=== PATIENT | female | born 1945 | race Two or more races ===

== ENCOUNTER 2020-10-31 07:56 | Outpatient (REF) | payer MEDICARE, SELFPAY ==
[2020-10-31 11:53] LABS: Alanine Aminotransferase 12 U/L (0-31); Anion Gap 13 (12-20); Aspartate Amino Transferase 16 U/L (5-31); Blood Urea Nitrogen 13 mg/dL (9-16); Calcium 9.2 mg/dL (8.4-10.2); Carbon Dioxide 27 mmol/L (22-29); Chloride 105 mmol/L (96-108); Cholesterol 177 mg/dL; Estimated Glomerular Filt Rate > 60; Glucose Fasting 107 mg/dL (60-99); HDL Cholesterol 64 mg/dL; LDL Cholesterol Calculated 95 mg/dl; Potassium 4.5 mmol/l (3.3-5.1); Sodium 140 mmol/L (135-145); Triglycerides 94 mg/dL
[2020-10-31 11:59] LABS: Vitamin D 25-OH Total 39.9 ng/mL (>30)
[2020-10-31 12:04] LABS: Estimated Average Glucose 137 mg/dL; Hemoglobin A1c % 6.4 %
== END 2020-10-31 07:57 | disposition home or self-care (01) ==
LOC: HO.HMGCLDS 07:56
PROVIDERS: PCP Internal Medicine; Visit Provider Internal Medicine
DX: I10 Essential (primary) hypertension (principal); E11.9 Type 2 diabetes mellitus without complications; E78.5 Hyperlipidemia, unspecified; F41.9 Anxiety disorder, unspecified; Z78.0 Asymptomatic menopausal state
CPT/HCPCS: 80048; 80061; 82306; 83036; 84450; 84460

== ENCOUNTER → 2020-11-01 13:37 | Outpatient (BNVA) | payer MEDICARE, OTHER, SELFPAY | PROVIDERS: PCP Internal Medicine; Visit Provider Orthopaedic Surgery | DX: M54.12 Radiculopathy, cervical region (principal) | CPT/HCPCS: 99212 ==

== ENCOUNTER 2020-11-03 09:05 | Outpatient (REF) | payer MEDICARE, OTHER, SELFPAY ==
--- NOTE | 2020-11-03 09:09 | XR_ITS ---
EXAMINATION:XR cervical spine 4V CLINICAL INFORMATION: Radiculopathic the cervical region COMPARISON: None TECHNIQUE: 5 views of the cervical spine were obtained. Frontal lateral both obliques and open-mouth odontoid view FINDINGS: 7 cervical vertebrae identified maintaining normal height and alignments.. Narrowing of intervertebral disc spaces at C5-C6, C6-C7 and C7-T1 suggests underlying moderate to severe degenerative disc disease. No prevertebral soft tissue swelling. Surrounding soft tissue and included lung apices are clear. No osseous stenosis of the foramen. Included lung apices are clear. XR/XR cervical spine 4V IMPRESSION: Degenerative disc disease. No osseous a stenosis of neural foramen.
== END 2020-11-03 09:06 | disposition home or self-care (01) ==
LOC: HO.HMGCX 09:05
PROVIDERS: PCP Internal Medicine; Visit Provider Internal Medicine
DX: M54.12 Radiculopathy, cervical region (principal)
CPT/HCPCS: 72050

== ENCOUNTER 2020-12-14 09:00 | Outpatient (RCR) | payer MEDICARE, OTHER, SELFPAY ==
--- NOTE | 2020-11-17 08:54 | MHC.PT.EP ---
[facility] [place] Office [place] Office [place] Office [address] [phone] F: [phone] F: [phone] F: [phone] F: [phone] Physical Therapy Plan of Care Date of Evaluation: 11/17/20 Date of Surgery: Diagnosis: cervical radiculopathy Assessment: Patient is a 74 year old R handed female who presents with s/s consistent with cervical radiculopathy. This started months ago intermittently but has been constant x3-4 weeks. She likes to keep busy by sewing and watching [employer]. Patient past medical history includes DM, HTN, anxiety. Current impairments include pain, posture, ROM, strength, activity tolerance and functional mobility. Functional limitations include decreased ability to sleep, lift, carry, push, pull, and perform weight bearing activities.. Patient is motivated with good rehab potential. Skilled PT will address impairments and functional limitations in order to achieve goals. Frequency and Duration: The patient will be seen 2x/week for 5 weeks Short Term Goals: I with HEP - 2 weeks Reduced TTP to 2/10 - 3 weeks Centralized s/s - 3 weeks General Administrator Goals: NPDI 30% or less - 5 weeks Treatment Plan: Modalities to reduce pain, spasms and effusion. Manual therapy to restore motion and function. Therapeutic exercise to improve strength and flexibility. Neuromuscular re-education for posture and balance. Therapeutic activities to return to functional activities of daily living. Electronically signed by: Lobito Machado, PT Please sign and return to therapist. Thank you for your referral.
--- NOTE | 2021-01-23 13:33 | MHC.PT.DC ---
[facility] [place] Office [place] Office [place] Office [address] Luis Driver [address] [phone] F: [phone] F: [phone] F: [phone] F: [phone] Physical Therapy Discharge Report Diagnosis: cervical radiculopathy Date of Surgery: Date of Evaluation: 11/17/20 Date of Discharge: 01/23/21 Treatments to Date: 8 Cancellations to Date: 0 No Shows to Date: 0 Discharge Status: Independent with HEP Discharge Summary: Pt progressed well over the course of skilled PT making progress on impairments and functional limitations resulting in an improved quality of life. Pt is I with HEP and appropriate to d/c to HEP at this time. Electronically signed by: Lobito Machado, PT Please sign and return to therapist. Thank you for your referral.
== END 2021-01-23 14:01 | disposition home or self-care (01) ==
LOC: HO.PTCHIC 09:00
PROVIDERS: Visit Provider Internal Medicine
DX: M54.12 Radiculopathy, cervical region (principal)
CPT/HCPCS: 97110; 97140; 97162

== ENCOUNTER 2021-03-08 08:12 | Outpatient (REF) | payer MEDICARE, OTHER, SELFPAY ==
[2021-03-08 12:14] LABS: Alanine Aminotransferase 15 U/L (0-31); Anion Gap 14 (12-20); Aspartate Amino Transferase 16 U/L (5-31); Blood Urea Nitrogen 20 mg/dL (9-16); Calcium 9.5 mg/dL (8.4-10.2); Carbon Dioxide 24 mmol/L (22-29); Chloride 105 mmol/L (96-108); Cholesterol 177 mg/dL; Estimated Glomerular Filt Rate > 60; Glucose Fasting 119 mg/dL (60-99); HDL Cholesterol 56 mg/dL; LDL Cholesterol Calculated 98 mg/dl; Potassium 4.3 mmol/L (3.3-5.1); Sodium 139 mmol/L (135-145); Triglycerides 116 mg/dL
[2021-03-08 12:33] LABS: Creatinine Urine 118.65 mg/dL; Microalbum/Creatinine Ratio Ur 8.4 ug/mg cr
[2021-03-08 12:36] LABS: Estimated Average Glucose 134 mg/dL; Hemoglobin A1c % 6.3 %
== END 2021-03-08 08:13 | disposition home or self-care (01) ==
LOC: HO.HMGCLDS 08:12
PROVIDERS: PCP Internal Medicine; Visit Provider Internal Medicine
DX: E11.9 Type 2 diabetes mellitus without complications (principal); E78.5 Hyperlipidemia, unspecified; I10 Essential (primary) hypertension
CPT/HCPCS: 36415; 80048; 80061; 82043; 83036; 84450; 84460

== ENCOUNTER 2021-06-21 12:20 | Outpatient (REF) | payer MEDICARE, OTHER, SELFPAY ==
--- NOTE | ~2021-06-21 | MM_ITS ---
EXAMINATION: MM SCREENING DIGITAL BREAST TOMOSYNTHESIS, BILATERAL CLINICAL INFORMATION: Screening. Asymptomatic. The lifetime risk of breast cancer based on the Tyrer-Cuzick Model is 3.3%. COMPARISON: Mammography: May 23, 2020 and studies dating back to October 18, 2014 TECHNIQUE: Digital breast tomosynthesis is performed in both the craniocaudal and mediolateral oblique views along with computer-aided detection (CAD). Synthesized 2D images are generated from the tomosynthesis. FINDINGS: There are scattered areas of fibroglandular density (ACR BI-RADS breast composition Category b). There are no significant masses, abnormal calcifications, or other abnormalities. MM/MM tomosynthesis screening BI IMPRESSION: There are no significant changes from prior study. ASSESSMENT: BI-RADS 1: Negative RECOMMENDATION: Routine annual mammography screening. This patient's information was entered into a reminder system with a target due date for their next mammogram.
--- NOTE | ~2021-06-21 | MM_ITS ---
EXAMINATION: BONE DENSITOMETRY CLINICAL INDICATION: Other specified disorders of bone density and structure, unspecified site. COMPARISON: Previous BD dated 12/04/2016 and baseline BD dated 03/26/2007. TECHNIQUE: Using a [employer]WARE DXA System (software version: 13.1) manufactured by [employer], dual-energy x-ray absorptiometry was performed of the lumbar spine and left hip. The images are of good technical quality. Summary results are attached. FINDINGS: AP SPINE L1-L4: Current: BMD 1.419 g/cm2, Z-score 3.4, T-score 2.0, normal, 5.3% increase from previous, 17.4% increase from baseline (<5% change is not significant). Prior: BMD 1.347 g/cm2. Baseline: BMD 1.209 g/cm2. LEFT FEMUR, NECK: Current: BMD 0.893 g/cm2, Z-score 0.6, T-score -1.0, normal. Prior: BMD 0.877 g/cm2. Baseline: BMD 0.905 g/cm2. LEFT FEMUR, TOTAL: Current: BMD 0.924 g/cm2, Z-score 0.8, T-score -0.7, normal, 1.3% decrease from previous, 5.9% decrease from baseline (<5% change is not significant). Prior: BMD 0.936 g/cm2. Baseline: BMD 0.982 g/cm2. IDENTIFIED RISK FACTORS: Height loss. Menopause. HISTORY OF FRACTURE: None listed. MEDICATIONS: Vitamin D. MM/XR DEXA axial skeleton IMPRESSION: 1. DIAGNOSIS: Normal bone density based on the lowest T-score value of -1.0 in the femoral neck applying World Health Organization criteria. 2. 10-YEAR FRACTURE RISK PREDICTION, FRAX: Major osteoporotic fracture (clinical spine, forearm, hip or shoulder) 9.3%. Hip fracture 1.3%. 3. Treatment Recommendations: NOF guidelines recommend consideration for treatment in postmenopausal women and men age 50 and older presenting with the following: -A hip or vertebral (clinical or morphometric) fracture. -T-score less than or equal to -2.5 at the femoral neck or spine after appropriate evaluation to exclude secondary causes. -Low bone mass at the hip or spine and a 10-year fracture probability by FRAX of greater than or equal to 3% for hip fracture or greater than or equal to 20% for major osteoporotic fracture based on the [place] adapted WHO algorithm. 4. Other Recommendations: All treatment decisions require clinical judgment and consideration of individual patient factors, including patient preferences, comorbidities, previous drug use, risk factors not captured in the FRAX model (e.g. frailty, falls, vitamin D deficiency, increased bone turnover, interval significant decline in bone density) and possible under or overestimation of fracture risk by FRAX. FUTURE SCAN RECOMMENDATION: People with diagnosed cases of osteoporosis or at high risk for fracture should have regular bone mineral density tests. For patients eligible for Medicare, routine testing is allowed once every 2 years. The testing frequency can be increased to one year for patients who have rapidly progressing disease, those who are receiving or discontinuing medical therapy to restore bone mass, or have additional risk factors.
== END 2021-06-21 12:21 | disposition home or self-care (01) ==
LOC: HO.MAMMO 12:20
PROVIDERS: Visit Provider Internal Medicine
DX: Z13.820 Encounter for screening for osteoporosis (principal); Z78.0 Asymptomatic menopausal state; Z12.31 Encounter for screening mammogram for malignant neoplasm of breast
CPT/HCPCS: 77063; 77067; 77080

== ENCOUNTER 2021-07-18 12:37 | Outpatient (REF) | payer MEDICARE, OTHER, SELFPAY ==
--- NOTE | ~2021-07-18 | XR_ITS ---
EXAMINATION: LEFT HIP AND LEFT KNEE. CLINICAL INFORMATION: Pain in left hip. COMPARISON: None TECHNIQUE: 2 views left hip and 4 views left knee. FINDINGS: Left hip: There is no visible acute fracture, dislocation or subluxation. There is mild loss of left hip joint space without spurring. The soft tissues are normal. Left knee: There is mild reduction in the medial and patellofemoral compartment joint space. No visible acute fracture or dislocation seen. There is a moderate anterior superior patellar enthesophyte. Mild prepatellar soft tissue swelling. No lytic or sclerotic process. There is no abnormal joint effusion seen. XR/XR knee LT 4V IMPRESSION: Mild degenerative changes left medial and patellofemoral compartment left knee. Moderate size anterior superior patellar enthesophyte. Mild prepatellar soft tissue swelling. Mild degenerative changes left hip joint. No visible acute fracture or dislocation.
--- NOTE | ~2021-07-18 | XR_ITS ---
EXAMINATION: LEFT HIP AND LEFT KNEE. CLINICAL INFORMATION: Pain in left hip. COMPARISON: None TECHNIQUE: 2 views left hip and 4 views left knee. FINDINGS: Left hip: There is no visible acute fracture, dislocation or subluxation. There is mild loss of left hip joint space without spurring. The soft tissues are normal. Left knee: There is mild reduction in the medial and patellofemoral compartment joint space. No visible acute fracture or dislocation seen. There is a moderate anterior superior patellar enthesophyte. Mild prepatellar soft tissue swelling. No lytic or sclerotic process. There is no abnormal joint effusion seen. XR/XR hip LT w PEL1V IMPRESSION: Mild degenerative changes left medial and patellofemoral compartment left knee. Moderate size anterior superior patellar enthesophyte. Mild prepatellar soft tissue swelling. Mild degenerative changes left hip joint. No visible acute fracture or dislocation.
== END 2021-07-18 12:38 | disposition home or self-care (01) ==
LOC: HO.HMGCX 12:37
PROVIDERS: PCP Internal Medicine; Visit Provider Internal Medicine
DX: Z13.89 Encounter for screening for other disorder (principal)
CPT/HCPCS: 73502; 73564

== ENCOUNTER → 2021-08-07 07:43 | Outpatient (BNVA) | payer MEDICARE, OTHER, SELFPAY | PROVIDERS: PCP Internal Medicine; Visit Provider Orthopaedic Surgery | DX: G95.9 Disease of spinal cord, unspecified (principal) | CPT/HCPCS: 99202 ==

== ENCOUNTER 2021-08-17 09:00 | Outpatient (REF) | payer MEDICARE, OTHER, SELFPAY ==
--- NOTE | ~2021-08-17 | MR_ITS ---
EXAMINATION: MR LUMBAR SPINE WITHOUT CONTRAST CLINICAL INFORMATION: 75-year-old with left-sided low back and hip pain with left leg numbness. COMPARISON: None TECHNIQUE: MRI of the lumbar spine was obtained using routine sequences without contrast. FINDINGS: Coronal Alignment: Mild to moderate upper lumbar levoscoliosis noted. Sagittal Alignment: There is trace Grade 1 degenerative spondylolisthesis at L4-5 of less than 2 mm. There is trace retrolisthesis at L3-L4 and L2-L3 and there is 3 mm of retrolisthesis at L1-L2. There is trace retrolisthesis at T12-L1. Lumbosacral Junction: Normal. Vertebral Bodies: Normal height. Disc Spaces and Endplates: Severe disc space height loss at L5-S1 with disc desiccation and Schmorl's nodes. Disc desiccation at L4-L5 and L3-L4. Mild to moderate disc space height loss at L2-L3 with disc desiccation and Schmorl's nodes and moderate to severe disc space height loss asymmetric to the right at L1-L2 with disc desiccation and Schmorl's nodes. Moderate disc space height loss and disc desiccation at T12-L1 and aykt-ax-xniotxjo disc space height loss and disc desiccation with Schmorl's nodes at T11-T12. There is multilevel moderately extensive anterolateral spondylosis throughout the thoracolumbar spine. Spinal Canal: No abnormal developmental findings. Bone Marrow: There are type I degenerative marrow signal changes along the endplates at L5-S1, L2-L3 and L1-L2. Otherwise, bone marrow signal intensity appears unremarkable. Conus Medullaris: Terminates at T12. Morphology and signal is normal. Intradural Nerve Roots: Within normal limits. L5-S1: There is posterolateral disc osteophyte complex with a superimposed central extruded disc herniation with slight caudal migration, with mild flattening of the central dural sac, also abutting the origin of the right S1 nerve root sleeve. There is mild bilateral facet arthropathy with ufbf-mv-grrbjxbr left-sided and mild right-sided neural foraminal stenosis without neural impingement. No significant central spinal canal or lateral recess stenosis. L4-L5: Central to left subarticular disc herniation noted superimposed on minimal disc bulging with moderate flattening of the dural sac asymmetric to the left, with marked narrowing of the left subarticular zone and mild narrowing of the right subarticular zone. There is left L5 nerve root impingement in the lateral recess. Ligamentum flavum thickening is noted with moderate to severe bilateral facet arthrosis, with mild central spinal canal stenosis. There is mild left-sided neural foraminal stenosis without exiting nerve root impingement. L3-L4: There is bilateral posterolateral subarticular to foraminal disc protrusions, left more than right, with moderate to severe bilateral facet arthropathy and ligamentum flavum thickening. There is mild flattening of the dural sac without significant spinal canal stenosis. There is okft-hd-yzcpifou left-sided neural foraminal stenosis, with disc herniation impinging on the exiting left L3 nerve root. L2-L3: Diffuse disc bulging is noted with a superimposed left paramedian disc protrusion with flattening of the dural sac asymmetric to the left. There is ligamentum flavum thickening and moderate bilateral facet arthrosis, right more than left with mild central spinal canal stenosis and mild to moderate narrowing of the subarticular zones, left more than right. There is jseq-cq-eetoqpql right-sided neural foraminal stenosis without neural impingement. L1-L2: Retrolisthesis and posterolateral disc osteophyte complex is noted with a superimposed right subarticular to foraminal extruded disc herniation with an extraforaminal component. There is ovzs-rf-nngboiii facet arthrosis, right more than left and there is moderate right-sided neural foraminal stenosis, with mild encroachment on the exiting right L1 nerve root. There is mild left-sided neural foraminal stenosis as well with mild narrowing of the right subarticular zone without significant central spinal canal stenosis. There is a mild broad-based central to right paramedian disc protrusion at T12-L1 without significant canal or neuroforaminal compromise with mild facet arthropathy. There is posterior disc osteophyte complex asymmetric to the right at T11-T12 with mild facet arthropathy. Paraspinal/Retroperitoneal: There is moderate generalized diffuse paraspinal muscle volume loss and bilateral psoas muscle volume loss. There is multilevel interspinous ligament degeneration with mild edematous change on both sides of the L3-L4 interspinous space. There is a 4 cm simple-appearing cortical cyst arising from the lower pole of the right kidney. Limited assessment. No specific follow up recommended for this based on the current ACR best practice guidelines. MR/MR lumbar spine wo con IMPRESSION: 1. Bvyj-jo-zjaagurp upper lumbar levoscoliosis with Grade 1 degenerative spondylolisthesis at L4-L5 and multilevel retrosubluxation's as detailed above. 2. Diffuse multilevel discogenic degenerative change and spondylosis throughout the thoracolumbar spine, with multilevel disc osteophyte complexes, disc bulging and disc herniations, associated with multilevel bilateral facet arthropathy and ligamentum flavum thickening with multilevel interspinous ligament degeneration. 3. Mild spinal canal stenosis at L4-L5 with left lateral recess stenosis and left L5 nerve root impingement. Mild spinal canal stenosis at L2-L3. 4. Multilevel predominately sziq-ei-hhdbbgvk degrees of neural foraminal stenosis as detailed above.
== END 2021-08-17 09:01 | disposition home or self-care (01) ==
LOC: HO.MRI 09:00
PROVIDERS: PCP Internal Medicine; Visit Provider Orthopaedic Surgery
DX: G95.9 Disease of spinal cord, unspecified (principal)
CPT/HCPCS: 72148

== ENCOUNTER → 2021-08-28 13:09 | Outpatient (BNVA) | payer MEDICARE, OTHER, SELFPAY | PROVIDERS: PCP Internal Medicine; Visit Provider Anesthesiology | DX: M47.816 Spondylosis without myelopathy or radiculopathy, lumbar region (principal); M43.16 Spondylolisthesis, lumbar region; M51.36 Other intervertebral disc degeneration, lumbar region | CPT/HCPCS: 99202 ==

== ENCOUNTER 2021-09-07 07:58 | Outpatient (REF) | payer MEDICARE, OTHER, SELFPAY ==
[2021-09-07 11:20] LABS: MANUAL DIFF FLAG NO
[2021-09-07 11:23] LABS: Basophils Percent Auto 0.9 % (0-2); Eosinophils Absolute Auto 0.2 X10*3/uL (0.0-0.4); Eosinophils Percent Auto 4.6 % (0-4); Hematocrit 42.2 % (37-47); Hemoglobin 13.1 g/dl (12.0-16.0); Imm Gran Abs Auto 0.01 X10*3/uL (0.00-0.03); Imm Gran Pct Auto 0.2 % (0.0-0.4); Lymphocytes Absolute Auto 1.6 X10*3/uL (1.2-4.9); Lymphocytes Percent Auto 35.5 % (20-40); Mean Corpuscular Hemoglobin 27.2 pg (27.0-33.0); Mean Corpuscular Volume 87.7 fL (80-98); Mean Platelet Volume 10.9 fL (9.4-12.3); Monocytes Absolute Auto 0.5 X10*3/uL (0.1-1.2); Neutrophils Absolute Auto 2.2 X10*3/uL (2.0-8.3); Neutrophils Percent Auto 47.8 % (45-73); Platelet Count 319 X10*3/uL (160-400); Red Blood Count 4.81 X10*6/uL (4.20-5.50); Red Cell Distribution Width 13.2 % (11.0-16.0); White Blood Count 4.5 X10*3/uL (4.8-10.8)
[2021-09-07 11:37] LABS: Estimated Average Glucose 137 mg/dL; Hemoglobin A1c % 6.4 %
[2021-09-07 11:47] LABS: Alanine Aminotransferase 13 U/L (0-31); Anion Gap 11 (12-20); Aspartate Amino Transferase 18 U/L (5-31); Blood Urea Nitrogen 16 mg/dL (9-16); Calcium 9.7 mg/dL (8.4-10.2); Carbon Dioxide 29 mmol/L (22-29); Chloride 104 mmol/L (96-108); Cholesterol 165 mg/dL; Estimated Glomerular Filt Rate > 60; Glucose Fasting 119 mg/dL (60-99); HDL Cholesterol 50 mg/dL; LDL Cholesterol Calculated 95 mg/dl; Potassium 4.5 mmol/L (3.3-5.1); Sodium 139 mmol/L (135-145); Triglycerides 101 mg/dL
[2021-09-07 12:17] LABS: Vitamin D 25-OH Total 86.5 ng/mL (>30)
[2021-09-07 12:18] LABS: Folate 5.5 ng/mL (> or = 4.0); Vitamin B12 610 pg/mL (200-900)
== END 2021-09-07 07:59 | disposition home or self-care (01) ==
LOC: HO.HMGCLDS 07:58
PROVIDERS: PCP Internal Medicine; Visit Provider Internal Medicine
DX: E11.9 Type 2 diabetes mellitus without complications (principal); E78.5 Hyperlipidemia, unspecified; I10 Essential (primary) hypertension; M85.852 Other specified disorders of bone density and structure, left thigh; Z78.0 Asymptomatic menopausal state
CPT/HCPCS: 36415; 80048; 80061; 82306; 82607; 82746; 83036; 84450; 84460; 85025

== ENCOUNTER 2021-10-24 06:01 | Outpatient (REF) | payer MEDICARE, OTHER, SELFPAY ==
--- NOTE | ~2021-10-24 | FL_ITS ---
EXAMINATION: XR FLUOROSCOPY WITH IMAGES CLINICAL INFORMATION: M51.36 - Other intervertebral disc degeneration, lumbar radiculopathy COMPARISON: MR lumbar spine 08/17/2021 TECHNIQUE: Fluoroscopy performed by Dr. Humberto Espinoza. Fluoroscopy time: 0.7 minutes DAP: 3.02 Gycm2 Images: 3 FINDINGS: There is a spinal needle overlying the outer left L3 neural foramen. There is contrast seen in the respective nerve sheath. In addition, transforaminal epidural extension is present at this level and also possibly at the L4 level. No visible vascular communication. FL/FL guidance in treatment room IMPRESSION: Fluoroscopy for pain management procedures.
== END 2021-10-24 06:02 | disposition home or self-care (01) ==
LOC: HO.RADIR 06:01
PROVIDERS: Visit Provider Anesthesiology
DX: M51.36 Other intervertebral disc degeneration, lumbar region (principal); M47.816 Spondylosis without myelopathy or radiculopathy, lumbar region; M43.16 Spondylolisthesis, lumbar region
CPT/HCPCS: 64483; 64484; J3300; Q9967

== ENCOUNTER → 2021-11-22 08:17 | Outpatient (BNVA) | payer MEDICARE, OTHER, SELFPAY | PROVIDERS: PCP Internal Medicine; Visit Provider Anesthesiology | DX: M47.816 Spondylosis without myelopathy or radiculopathy, lumbar region (principal); M43.16 Spondylolisthesis, lumbar region; M51.36 Other intervertebral disc degeneration, lumbar region | CPT/HCPCS: 99212 ==

== ENCOUNTER 2021-12-19 08:10 | Outpatient (REF) | payer MEDICARE, OTHER, SELFPAY ==
[2021-12-19 11:47] LABS: Estimated Average Glucose 143 mg/dL; Hemoglobin A1c % 6.6 %
[2021-12-19 12:13] LABS: Vitamin D 25-OH Total 43.9 ng/mL (>30)
[2021-12-19 12:16] LABS: Creatinine Urine 132.95 mg/dL; Microalbum/Creatinine Ratio Ur 10.5 ug/mg cr
[2021-12-19 12:20] LABS: Alanine Aminotransferase 13 U/L (0-31); Anion Gap 13 (12-20); Aspartate Amino Transferase 17 U/L (5-31); Blood Urea Nitrogen 15 mg/dL (9-16); Calcium 9.8 mg/dL (8.4-10.2); Carbon Dioxide 27 mmol/L (22-29); Chloride 105 mmol/L (96-108); Cholesterol 209 mg/dL; Estimated Glomerular Filt Rate > 60; Glucose Fasting 98 mg/dL (60-99); HDL Cholesterol 68 mg/dL; LDL Cholesterol Calculated 117 mg/dl; Potassium 4.6 mmol/L (3.3-5.1); Sodium 140 mmol/L (135-145); Triglycerides 120 mg/dL
== END 2021-12-19 08:11 | disposition home or self-care (01) ==
LOC: HO.HMGCLDS 08:10
PROVIDERS: Visit Provider Internal Medicine
DX: E11.9 Type 2 diabetes mellitus without complications (principal); E78.5 Hyperlipidemia, unspecified; I10 Essential (primary) hypertension; M85.852 Other specified disorders of bone density and structure, left thigh; Z78.0 Asymptomatic menopausal state
CPT/HCPCS: 36415; 80048; 80061; 82043; 82306; 83036; 84450; 84460

== ENCOUNTER 2022-03-09 07:41 | Outpatient (REF) | payer MEDICARE, OTHER, SELFPAY ==
--- NOTE | ~2022-03-09 | XR_ITS ---
EXAMINATION: XR shoulder RT min 2V CLINICAL INFORMATION: Reason for Exam M25.519 - Pain in unspecified shoulder COMPARISON: 10/21/2019 shoulder radiographs TECHNIQUE: Four views of the shoulder. XR/XR shoulder RT min 2V FINDINGS/IMPRESSION: No acute fracture or dislocation. Moderate degenerative changes of the glenohumeral and acromioclavicular joint with loss of joint space and degenerative spurring slightly progressed from prior, with loss of subacromial joint space which can be seen in the setting of rotator cuff pathology. Soft tissues are unremarkable. Visualized portion of lung appears clear.
== END 2022-03-09 07:42 | disposition home or self-care (01) ==
LOC: HO.HOSX 07:41
PROVIDERS: Visit Provider Orthopaedic Surgery
DX: M75.101 Unspecified rotator cuff tear or rupture of right shoulder, not specified as traumatic (principal); M12.811 Other specific arthropathies, not elsewhere classified, right shoulder
CPT/HCPCS: 73030; 99212

== ENCOUNTER 2022-03-22 08:30 | Outpatient (REF) | payer MEDICARE, OTHER, SELFPAY ==
--- NOTE | ~2022-03-22 | CT_ITS ---
EXAMINATION: CT SHOULDER WITHOUT CONTRAST, RIGHT CLINICAL INFORMATION: Unspecified rotator cuff tear or rupture of right shoulder. COMPARISON: Right shoulder radiographs dated 03/09/2022. TECHNIQUE: Contiguous axial CT images of the right shoulder were obtained without contrast. Sagittal and coronal reformats were provided and reviewed. This CT examination was performed using dose optimization techniques as appropriate, variously including the following: *Automated exposure control *Adjustment of mA and/or kV according to patient size (this includes techniques or standardized protocols for targeted exams where dose is matched to indication/reason for exam; i.e. extremities or head) *Use of iterative reconstruction technique DLP: 259 mGy-cm FINDINGS: No acute fracture. Chronic superior subluxation of the humeral head with bony remodeling of the acromial undersurface. Small unfused osteophyte versus loose body anterior to the acromion measuring up to 0.8 cm in ML dimension. Findings likely indicate underlying complete supraspinatus and infraspinatus tendon tears. There is severe supraspinatus and infraspinatus as well as more moderate teres minor muscle atrophy. Severe glenohumeral joint space narrowing with large marginal osteophytes. Small joint effusion. Ossified loose body within the subcoracoid recess measuring up to 0.5 cm. Severe acromioclavicular osteoarthritis. No concerning lytic or blastic osseous lesion. No abnormal soft tissue mass or fluid collection. No axillary lymphadenopathy. No large nodule, mass, or consolidation within the visualized right lung. CT/CT shoulder RT wo con IMPRESSION: 1. Chronic superior subluxation of the humeral head with bony remodeling of the acromial undersurface. Findings likely indicate chronic, complete supraspinatus and infraspinatus tendon tears. Severe supraspinatus and infraspinatus muscle atrophy as well as more moderate teres minor muscle atrophy. 2. Severe glenohumeral osteoarthritis. Small joint effusion with an ossified loose body within the subcoracoid recess measuring up to 0.5 cm. 3. Severe acromioclavicular osteoarthritis.
== END 2022-03-22 08:31 | disposition home or self-care (01) ==
LOC: HO.CT 08:30
PROVIDERS: Visit Provider Orthopaedic Surgery
DX: M12.811 Other specific arthropathies, not elsewhere classified, right shoulder (principal); M75.101 Unspecified rotator cuff tear or rupture of right shoulder, not specified as traumatic
CPT/HCPCS: 73200

== ENCOUNTER → 2022-04-04 12:42 | Outpatient (BNVA) | payer MEDICARE, OTHER, SELFPAY | PROVIDERS: PCP Internal Medicine; Visit Provider Orthopaedic Surgery | DX: Z13.89 Encounter for screening for other disorder (principal) ==

== ENCOUNTER 2022-04-27 06:58 | Outpatient (REF) | payer MEDICARE, OTHER, SELFPAY ==
[2022-04-27 11:20] LABS: MANUAL DIFF FLAG NO
[2022-04-27 11:25] LABS: Basophils Percent Auto 0.8 % (0-2); Eosinophils Absolute Auto 0.2 X10*3/uL (0.0-0.4); Eosinophils Percent Auto 3.2 % (0-4); Hematocrit 41.1 % (37.0-47.0); Hemoglobin 13.4 g/dl (12.0-16.0); Imm Gran Abs Auto 0.01 X10*3/uL (0.00-0.03); Imm Gran Pct Auto 0.2 % (0.0-0.4); Lymphocytes Absolute Auto 1.5 X10*3/uL (1.2-4.9); Lymphocytes Percent Auto 29.1 % (20-40); Mean Corpuscular HGB Conc 32.6 g/dl (31.0-35.0); Mean Corpuscular Hemoglobin 28.2 pg (27.0-33.0); Mean Corpuscular Volume 86.5 fL (80.0-98.0); Mean Platelet Volume 10.8 fL (9.4-12.3); Monocytes Absolute Auto 0.5 X10*3/uL (0.1-1.2); Neutrophils Absolute Auto 2.9 x10*3/uL (2.0-8.3); Neutrophils Percent Auto 57.7 % (45-73); Platelet Count 303 X10*3/uL (160-400); Red Blood Count 4.75 X10*6/uL (4.20-5.50); Red Cell Distribution Width 13.3 % (11.0-16.0)
[2022-04-27 11:33] LABS: Estimated Average Glucose 143 mg/dL; Hemoglobin A1c % 6.6 %
[2022-04-27 11:42] LABS: Anion Gap 12 (12-20); Blood Urea Nitrogen 20 mg/dL (9-16); Calcium 9.7 mg/dL (8.4-10.2); Carbon Dioxide 26 mmol/L (22-29); Chloride 104 mmol/L (96-108); Estimated Glomerular Filt Rate > 60; Glucose Random 143 mg/dL (60-115); Potassium 4.9 mmol/L (3.3-5.1); Sodium 137 mmol/L (135-145)
== END 2022-04-27 06:59 | disposition home or self-care (01) ==
LOC: HO.HMGCLDS 06:58
PROVIDERS: Visit Provider Orthopaedic Surgery
DX: Z01.812 Encounter for preprocedural laboratory examination (principal)
CPT/HCPCS: 36415; 80048; 83036; 85025

== ENCOUNTER → 2022-04-30 14:26 | Outpatient (REF) | payer MEDICARE, OTHER, SELFPAY ==
--- NOTE | 2022-04-30 14:34 | ECG_ITS ---
Test Reason : Z01.810 PREOP Blood Pressure : / mmHG Vent. Rate : 059 BPM Atrial Rate : 059 BPM P-R Int : 174 ms QRS Dur : 076 ms QT Int : 420 ms P-R-T Axes : 043 -12 030 degrees QTc Int : 415 ms Sinus bradycardia Minimal voltage criteria for LVH, may be normal variant ( R in aVL ) Borderline ECG When compared with ECG of 21-MAY-2014 13:13, No significant change was found Referred By: Ventura Flores Electronically Signed By:ROBEL GRAVES MD
== END ==
LOC: HO.CARD 14:26
PROVIDERS: PCP Internal Medicine; Visit Provider Orthopaedic Surgery
DX: Z01.810 Encounter for preprocedural cardiovascular examination (principal)
CPT/HCPCS: 93005

== ENCOUNTER → 2022-05-03 09:18 | Outpatient (BNVA) | payer MEDICARE, OTHER, SELFPAY | PROVIDERS: PCP Internal Medicine; Visit Provider Physician Assistant | DX: Z01.818 Encounter for other preprocedural examination (principal); M75.101 Unspecified rotator cuff tear or rupture of right shoulder, not specified as traumatic; M12.811 Other specific arthropathies, not elsewhere classified, right shoulder | CPT/HCPCS: 99212 ==

== ENCOUNTER 2022-05-08 07:24 | Inpatient (IN) | payer MEDICARE, OTHER, SELFPAY ==
[2022-05-01 11:50] VITALS: BP 156/74; PULSE 57; RESP 20; O2SAT 97; BMI 27.9
--- NOTE | 2022-05-01 12:02 | HO.ANESPROP2 ---
Documented by User: Christine Burdick NP 05/01/22 12:09 HPI - Anesthesia Eval Consult details Narrative: 76yo F for Right Shoulder Total Repair PCP cleared [facility] Active Problems Active Problems: All Active Problems (Updated 05/01/22 @ 12:01 by Antonia Carranza RN) Menopause (Acute) Past Medical History Medical History (Updated 05/08/22 @ 16:17 by Gera Gamez MD) COVID-19 vaccine series completed Dyslipidemia Essential hypertension Generalized anxiety disorder Influenza vaccination declined Osteopenia of left femoral neck Rotator cuff tear arthropathy of right shoulder Spondylolisthesis of lumbar region Type 2 diabetes mellitus without complication, without long-term current use of insulin Family History Family History Father CVD (cardiovascular disease) Myocardial infarction Mother History of CVA (cerebrovascular accident) Stroke Brother HTN (hypertension) Hyperlipidemia Diabetes mellitus Brother No problems noted. Son No problems noted. Daughter No problems noted. Family history of problems with anesthesia: No Surgical History Surgical History History of colonoscopy History of repair of right rotator cuff Hx of varicose vein ligation History of Problems with Anesthesia: No Social History Social History Housing: House Are you a primary animal caretaker supervisor to a significant other at home: No Do you presently have visiting nurse or other home services: No Patient Tobacco Use Status: Never used Tobacco e-Cigarette/Vaping Use: Never Used Second Hand Smoke Exposure: No Use of substances other than those prescribed or required for medical reasons: No Currently Displaying Signs/Symptoms of Drug Intoxication Withdrawal: No Have you been hit, kicked, punched, or otherwise hurt by someone within the past year? If so, by whom?: No Are you DNR?: No Advance Directives: No Advance Directives Information Provided: Yes (brochure given) Advance Directives on File: No Recently lost weight without trying: No Eating poorly because of decreased appetite: No Nutrition Risks: No Nutritional Risk : No Poor oral hygiene: No (upper full denture / some missing lower teeth) service: No Current occupational status: retired Current occupation: [employer] Cognitive needs: No Hearing needs: No Vision needs: Yes Narrative Narrative: No recent illness No CP/SOB with walking/housework Meds Allergies Allergy/AdvReac Type Severity Reaction Status Date / Time cephalexin Allergy Intermediate facial rash Verified 05/08/22 07:42 celecoxib [Celebrex] Allergy Unknown patient Verified 05/01/22 11:47 unsure what reaction was Home Medications Medication Instructions Recorded Confirmed Last Taken Type cholecalciferol (vitamin D3) 50 50 mcg PO DAILY 11/03/20 05/01/22 Unknown History mcg (2,000 unit) capsule aspirin 81 mg tablet,delayed 81 mg PO DAILY 03/09/21 05/01/22 04/30/22 History release (Adult Low Dose Aspirin) biotin 5,000 mcg sublingual tablet 5,000 mcg sublingual DAILY 05/01/22 05/01/22 Unknown History metformin 500 mg tablet,extended 500 mg PO QAM 05/01/22 05/01/22 Unknown History release 24 hr Exam Exam Date and Time: May 01, 2022 1202 Height,Weight and Vital Signs: Height 5 ft 5 in Weight 76.2 kg Last Vital Signs Pulse 57 05/01/22 11:50 Resp 20 05/01/22 11:50 BP 156/74 H 05/01/22 11:50 Pulse Ox 97 05/01/22 11:50 O2 Del Method 05/01/22 11:50 Pertinent Lab Results Pertinent Lab Results: Laboratory Tests 04/27/22 04/27/22 07:05 07:05 WBC 5.0 Hgb 13.4 Hct 41.1 Plt Count 303 Sodium 137 Potassium 4.9 Chloride 104 Carbon Dioxide 26 BUN 20 H Creatinine 0.78 A1C = 6.6% on 04/27/22 Narrative Narrative: EKG 04/2022 Vent. Rate : 059 BPM ? ? Atrial Rate : 059 BPM ?? P-R Int : 174 ms? QRS Dur : 076 ms ? ? QT Int : 420 ms ? ? ? P-R-T Axes : 043 -12 030 degrees ?? QTc Int : 415 ms ? Sinus bradycardia Minimal voltage criteria for LVH, may be normal variant ( R in aVL ) Borderline ECG When compared with ECG of 21-MAY-2014 13:13, No significant change was found Airway Denture: Upper Loose/Missing/Broken Teeth: Yes (Missing lower) Heart: RRR Lungs: CTAB Assessment and Plan Assessment Anesthesia Assessment: Anesthesia Plan Discussed and PAT Visit Final Anesthetic Review Family History of Problems with Anesthesia: No History of Problems with Anesthesia: No Documented by User: Jacky Gaitan MD 05/08/22 18:47 [facility] Past Medical History Medical History (Updated 05/08/22 @ 16:17 by Gera Gamez MD) COVID-19 vaccine series completed Dyslipidemia Essential hypertension Generalized anxiety disorder Influenza vaccination declined Osteopenia of left femoral neck Rotator cuff tear arthropathy of right shoulder Spondylolisthesis of lumbar region Type 2 diabetes mellitus without complication, without long-term current use of insulin Family History Family History Father CVD (cardiovascular disease) Myocardial infarction Mother History of CVA (cerebrovascular accident) Stroke Brother HTN (hypertension) Hyperlipidemia Diabetes mellitus Brother No problems noted. Son No problems noted. Daughter No problems noted. Surgical History Surgical History History of colonoscopy History of repair of right rotator cuff Hx of varicose vein ligation Social History Social History Housing: House Are you a primary animal caretaker supervisor to a significant other at home: No Do you presently have visiting nurse or other home services: No Patient Tobacco Use Status: Never used Tobacco e-Cigarette/Vaping Use: Never Used Second Hand Smoke Exposure: No Use of substances other than those prescribed or required for medical reasons: No Currently Displaying Signs/Symptoms of Drug Intoxication Withdrawal: No Have you been hit, kicked, punched, or otherwise hurt by someone within the past year? If so, by whom?: No Are you DNR?: No Advance Directives: No Advance Directives Information Provided: Yes (brochure given) Advance Directives on File: No Recently lost weight without trying: No Eating poorly because of decreased appetite: No Nutrition Risks: No Nutritional Risk : No Poor oral hygiene: No (upper full denture / some missing lower teeth) service: No Current occupational status: retired Current occupation: [employer] Cognitive needs: No Hearing needs: No Vision needs: Yes Meds Allergies Allergy/AdvReac Type Severity Reaction Status Date / Time cephalexin Allergy Intermediate facial rash Verified 05/08/22 07:42 celecoxib [Celebrex] Allergy Unknown patient Verified 05/01/22 11:47 unsure what reaction was Home Medications Medication Instructions Recorded Confirmed Last Taken Type cholecalciferol (vitamin D3) 50 50 mcg PO DAILY 11/03/20 05/01/22 Unknown History mcg (2,000 unit) capsule aspirin 81 mg tablet,delayed 81 mg PO DAILY 03/09/21 05/01/22 04/30/22 History release (Adult Low Dose Aspirin) biotin 5,000 mcg sublingual tablet 5,000 mcg sublingual DAILY 05/01/22 05/01/22 Unknown History metformin 500 mg tablet,extended 500 mg PO QAM 05/01/22 05/01/22 Unknown History release 24 hr Exam Airway Mallampati Class: III TM Dist: >3cm Neck ROM: Full Assessment and Plan Final Anesthetic Review NPO: Yes ASA Class: II Final Preanesthetic Review: Meds/Allgs Chart Reviewed, Consent Obtained/Reviewed and Anes Risks/Benef Reviewed Patient Risk: Intermediate Procedure Risk: Intermediate Anesthetic Plan Anesthetic Plan: GA and Regional Block Disposition: Standard PACU
[2022-05-01 16:18] LABS: MRSA Nasal PCR NEGATIVE (Negative); SA Nasal PCR NEGATIVE (Negative)
[2022-05-08] VITALS (15 sets, daily range): BP systolic 136–172; BP diastolic 57–88; PULSE 53–76; RESP 10–20; TEMP 36.1–37.1; O2SAT 66–100
--- NOTE | ~2022-05-08 | XR_ITS ---
EXAMINATION: XR SHOULDER, RIGHT CLINICAL INFORMATION: /p rt RTSA COMPARISON: None TECHNIQUE: 2 views of the right shoulder. FINDINGS: Status post right shoulder replacement. Surgical clips over the soft tissues. Air in the soft tissues from recent surgery. XR/XR shoulder RT min 2V IMPRESSION: Status post right shoulder replacement.
[2022-05-08 08:03] LABS: COVID-19 Test Negative (Negative)
[2022-05-08 08:06] LABS: Glucose, Whole Blood 100 mg/dL (60-115)
[2022-05-08] MEDS: Lactated Ringers 1,000 ML 100 ML IVCONT ×3 (08:11→22:31)
[2022-05-08] MEDS: vancomycin HCL 1,000 MG in 0.9 % Sodium Chloride 250 ML 270 MG IV ×2 (08:36→19:20)
--- NOTE | 2022-05-08 11:10 | PM.OP ---
Brief Operative Note Date of Service: 05/08/22 Pre-op diagnosis: Right RTC arthropathy Post-op diagnosis: same Procedure: rTSA right Implants: Tornier 25/39 lateralized glenosphere 2A flex stem with + 12 high offest tray and 39+6 poly Surgeon: Ventura Flores MD Anesthesia: GETA and regional Was an Petroleum Laboratory Technician used for this Procedure?: Yes Petroleum Laboratory Technician: Bridgette Glover Estimated blood loss (mL): 250 IV fluids (mL): 1,000 Pathology: other Condition: stable Disposition: PACU
--- NOTE | 2022-05-08 11:14 | W.PM.OPN ---
Operative Note Operative Note Date of Service: 05/08/22 Narrative: Date of Service: 05/08/22 Pre-op diagnosis: Right RTC arthropathy Post-op diagnosis: same Procedure: rTSA right Implants: Tornier 25/39 lateralized glenosphere 2A flex stem with + 12 high offest tray and 39+6 poly Surgeon: Ventura Flores MD Anesthesia: GETA and regional Was an Cooler Room Worker used for this Procedure?: Yes Cooler Room Worker: Bridgette Glover Estimated blood loss (mL): 250 IV fluids (mL): 1,000 Pathology: other Condition: stable Disposition: PACU Patient was brought to the operating room and placed in the beach chair position on the surgical table. The limb was prepped and draped in standard sterile fashion and a time out was called to identify proper site, proper procedure and IV antibiotics per weight were administered. I began by making a deltopectoral incision from the coracoid to the pectoralis insertion. Blunt dissection identified the cephalic vein which was retracted laterally. Blunt dissection was taken down to the 3 sisters which were cauterized. I then made a full-thickness capsulotomy involving the subscapularis. This was dimnutive and largely absent. There was no identifiable rtc tendons. This was then tagged and the arm was externally rotated and extended and the head was dislocated. The humeral head was high riding andeburnated. I made in approximately 132 degree angle while protecting the posterior and inferior soft tissues. A starter awl was used to identify the canal and then I broached up to a size 2 at 30 degrees of version. I then placed my head protector and turned my attention to the glenoid. Posterior anterior and superior glenoid retractors were placed and the biceps was tenotomized and labral tissue was removed. Based on the preoperative CT and templating a guide pin was placed in patient's natural retroversion and neutral inclination which required inferior reaming. Using a wedge Reamer I reamed down to bleeding bone mostly inferiorly and placed the 39 glenoid drill guide. My central screw was drilled to a depth of 35mm and a 25mm implant was placed. I then placed the proximal 2 nonlocking and 2 locking screws circumferentially around the central screw. I then placed a provisional glenosphere. I then returned to the humerus where I trialed an assortment of trays and polys. I then placed a lateralized glenosphere and trialed with a +12 adn + 6 poly and was satisfied with the stability and range. There was no impingement and excellent deltoid tension. Dislocation was difficult in all positions. I therefore placed my final glenosphere, stem and + 12 tray and re-trialed polys. I was most satisfied with the + 6 poly. This was placed and the shoulder was reduced. Once I was satisfied with the range of motion and stability I irrigated copiously. Subscapularis was not repairable. I closed in a layered fashion with absorbable suture and gordon and the patient was placed in a sterile dressing and an abduction sling. She was extubated brought to recovery room stable condition there were no known complications.
--- NOTE | 2022-05-08 11:21 | MHC.SHP ---
Pre-Procedural Eval Section A Date of Service: 05/08/22 The patient is an INPATIENT: No Changes since office visit: Yes Patient answered all questions; No Cold of Flu in the past 2 weeks, No New Medical Problems and No Changes in Medication The History & Physical has been completed within 30 days and I have reviewed it.: Yes Section B Chief Complaint: RTSA Allergies: Allergies Allergy/AdvReac Type Severity Reaction Status Date / Time cephalexin Allergy Intermediate facial rash Verified 05/08/22 07:42 celecoxib [Celebrex] Allergy Unknown patient Verified 05/01/22 11:47 unsure what reaction was Plan I have reviewed the history and physical and performed a pertinent physical examination on my patient. No changes have occurred unless specified.
--- NOTE | 2022-05-08 13:27 | PHA.MEDREC ---
Pharmacy Consult ? Medication Reconciliation Pharmacy has reviewed the medication reconciliation done by Antonia.
--- NOTE | 2022-05-08 15:59 | HO.PM.IMCN ---
History of Present Illness Data of Consult Service Date: 05/08/22 Primary Care Provider: Unknown Physician HPI Reason for consult: Routine medical mgmt This is a 76 yo F who is admitted under the orthopedic services s/p elective R TSA. Medical services consulted for medical mgmt. Pt seen and examined this afternoon. Family is bedside. She reports no complaints at this time. Review of Systems Review of Systems: negative except HPI PMFSH Medical History COVID-19 vaccine series completed Dyslipidemia Essential hypertension Generalized anxiety disorder Influenza vaccination declined Osteopenia of left femoral neck Rotator cuff tear arthropathy of right shoulder Spondylolisthesis of lumbar region Type 2 diabetes mellitus without complication, without long-term current use of insulin Family History Father CVD (cardiovascular disease) Myocardial infarction Mother History of CVA (cerebrovascular accident) Stroke Brother HTN (hypertension) Hyperlipidemia Diabetes mellitus Brother No problems noted. Son No problems noted. Daughter No problems noted. Surgical History History of colonoscopy History of repair of right rotator cuff Hx of varicose vein ligation Social History Housing: House Are you a primary critical care rn to a significant other at home: No Do you presently have visiting nurse or other home services: No Patient Tobacco Use Status: Never used Tobacco e-Cigarette/Vaping Use: Never Used Second Hand Smoke Exposure: No Use of substances other than those prescribed or required for medical reasons: No Have you been hit, kicked, punched, or otherwise hurt by someone within the past year? If so, by whom?: No Are you DNR?: No Advance Directives: No Advance Directives Information Provided: Yes (brochure given) Advance Directives on File: No Recently lost weight without trying: No Eating poorly because of decreased appetite: No Nutrition Risks: No Nutritional Risk : No Poor oral hygiene: No (upper full denture / some missing lower teeth) service: No Current occupational status: retired Current occupation: [employer] Cognitive needs: No Hearing needs: No Vision needs: Yes Meds Allergies Allergy/AdvReac Type Severity Reaction Status Date / Time cephalexin Allergy Intermediate facial rash Verified 05/08/22 07:42 celecoxib [Celebrex] Allergy Unknown patient Verified 05/01/22 11:47 unsure what reaction was Active Medications: Current Medications Acetaminophen (Acetaminophen 325 Mg Tablet) 650 mg PO Q6H PRN PRN Reason: Pain, Mild (Pain Scale 1-3) Aspirin (Aspirin 325 Mg Tablet) 325 mg PO BID [facility] Atorvastatin Calcium (Atorvastatin Calcium 10 Mg Tablet) 10 mg PO BEDTIME [facility] Docusate Sodium (Docusate Sodium 100 Mg Capsule) 100 mg PO BID [facility] Hydromorphone HCl (Hydromorphone Hcl 0.5 Mg/0.5 Ml Syringe) 0.25 mg IVPUSH Q4H PRN; Protocol PRN Reason: Pain, Severe (Pain Scale 7-10) Lactated Ringer's (Lr) 1,000 mls @ 100 mls/hr IVCONT .Q10H [facility] Last Admin: 05/08/22 15:03 Dose: 100 mls/hr Vancomycin HCl 1,000 mg/ (Sodium Chloride) 270 mls @ 270 mls/hr IV POSTOP ONE Stop: 05/08/22 21:59 Metformin HCl (Metformin Hcl Er 500 Mg Tab.Er.24h) 500 mg PO DAILY [facility] Metoprolol Succinate (Metoprolol Succinate Er 100 Mg Tab.Er.24h) 100 mg PO DAILY [facility]; Protocol Ondansetron HCl (Ondansetron Hcl 4 Mg/2 Ml Vial) 4 mg IVPUSH Q8H PRN PRN Reason: Nausea and Vomiting Oxycodone HCl (Oxycodone Hcl Immed Release 5 Mg Tablet) 10 mg PO Q4H PRN PRN Reason: Pain, Moderate (Pain Scale 4-6 Oxycodone HCl (Oxycodone Hcl Er 10 Mg Tab.Er.12h) 10 mg PO BID [facility] Pharmacy Consult (Consult Rx Vancomycin Dosing) 1 each MISCELLANE DAILY PRN PRN Reason: Consult order Sodium Chloride (0.9 % Sodium Chloride Flush 3 Ml Syringe) 3 ml IVFLUSH QSHIFT [facility] Last Admin: 05/08/22 15:50 Dose: Not Given Vitamin D (Cholecalciferol (Vitamin D3) 25 Mcg Tablet) 50 mcg PO DAILY [facility] Home Medications Medication Instructions Recorded Confirmed Last Taken Type cholecalciferol (vitamin D3) 50 50 mcg PO DAILY 11/03/20 05/01/22 Unknown History mcg (2,000 unit) capsule aspirin 81 mg tablet,delayed 81 mg PO DAILY 03/09/21 05/01/22 04/30/22 History release (Adult Low Dose Aspirin) biotin 5,000 mcg sublingual tablet 5,000 mcg sublingual DAILY 05/01/22 05/01/22 Unknown History metformin 500 mg tablet,extended 500 mg PO QAM 05/01/22 05/01/22 Unknown History release 24 hr Physical Exam Vital Signs and Narrative: Vital Signs: Last Vital Signs Temp 98.7 F 05/08/22 15:29 Pulse 76 05/08/22 15:29 Resp 18 05/08/22 15:29 BP 166/88 H 05/08/22 15:29 Pulse Ox 95 05/08/22 15:29 O2 Del Method 05/08/22 15:29 O2 Flow Rate 2 05/08/22 13:25 BMI result Body Mass Index 27.9 Const: Other: General - no acute distress, appears comfortable Cardiovascular - regular rate and rhythm, S1-S2 Lungs - normal respiratory effort, clear to auscultation bilaterally, no wheezing Abdomen - soft, nontender, no rebound or guarding Extremities - no edema bilaterally; RUE in sling Neuro - awake and alert, no focal deficits Results Labs Labs: Laboratory Results - last 24 hr 05/08/22 05/08/22 07:00 07:55 POC Glucose 100 COVID-19 (AMAURY) Negative COVID-19 Clin Com See Note Imaging Radiologist's Impressions: Impressions Shoulder X-Ray 05/08/22 14:05 IMPRESSION: Status post right shoulder replacement. Assessment and Plan (1) Type 2 diabetes mellitus without complication, without long-term current use of insulin: Plan This is a 76 yo F admitted after elected R TSA. Medical consult requested for medical management. 1. DM continue with metformin ADA diet; POC QIDAC 2. HTN metoprolol 3. HLD statin Medical stable. Will sign off. Please reconsult PRN.
[2022-05-08] MEDS: Docusate Sodium 100 MG CAPSULE PO (19:20)
[2022-05-08] MEDS: Atorvastatin Calcium 10 MG TABLET PO (19:20)
[2022-05-08] MEDS: oxyCODONE HCl ER 10 MG TAB.ER.12H PO (19:20)
[2022-05-08] MEDS: HYDROmorphone HCl 0.5 MG/0.5 ML SYRINGE 0.25 MG IVPUSH (22:31)
[2022-05-08] MEDS: ondansetron HCL 4 MG/2 ML VIAL IVPUSH (22:32)
[2022-05-09 04:00] VITALS: BP 150/63; PULSE 70; RESP 17; TEMP 36.7; O2SAT 94
[2022-05-09] MEDS: HYDROmorphone HCl 0.5 MG/0.5 ML SYRINGE 0.25 MG IVPUSH (05:09)
[2022-05-09 06:21] LABS: MANUAL DIFF FLAG NO
[2022-05-09 06:27] LABS: Basophils Percent Auto 0.1 % (0-2); Hematocrit 33.5 % (37.0-47.0); Hemoglobin 10.8 g/dl (12.0-16.0); Imm Gran Abs Auto 0.04 X10*3/uL (0.00-0.03); Imm Gran Pct Auto 0.5 % (0.0-0.4); Lymphocytes Absolute Auto 1.3 X10*3/uL (1.2-4.9); Lymphocytes Percent Auto 15.1 % (20-40); Mean Corpuscular HGB Conc 32.2 g/dl (31.0-35.0); Mean Corpuscular Hemoglobin 27.5 pg (27.0-33.0); Mean Corpuscular Volume 85.2 fL (80.0-98.0); Mean Platelet Volume 10.4 fL (9.4-12.3); Monocytes Absolute Auto 1.2 X10*3/uL (0.1-1.2); Monocytes Percent Auto 13.4 % (2-11); Neutrophils Absolute Auto 6.2 x10*3/uL (2.0-8.3); Neutrophils Percent Auto 70.9 % (45-73); Platelet Count 239 X10*3/uL (160-400); Red Blood Count 3.93 X10*6/uL (4.20-5.50); Red Cell Distribution Width 13.6 % (11.0-16.0); White Blood Count 8.7 X10*3/uL (4.8-10.8)
[2022-05-09 07:05] LABS: Anion Gap 10 (12-20); Blood Urea Nitrogen 11 mg/dL (9-16); Calcium 8.8 mg/dL (8.4-10.2); Carbon Dioxide 25 mmol/L (22-29); Chloride 105 mmol/L (96-108); Creatinine Clr Calc Pharmacy 76.3; Estimated Glomerular Filt Rate > 60; Glucose Fasting 132 mg/dL (60-99); Potassium 4.2 mmol/L (3.3-5.1); Sodium 136 mmol/L (135-145)
[2022-05-09 07:14] VITALS: BP 164/74; PULSE 67; RESP 16; TEMP 36.8; O2SAT 92
[2022-05-09] MEDS: Cholecalciferol (Vitamin D3) 25 MCG TABLET 50 MCG PO (07:24)
[2022-05-09] MEDS: oxyCODONE HCl Immed Release 5 MG TABLET 10 MG PO (07:24)
[2022-05-09] MEDS: Aspirin 325 MG TABLET PO (07:24)
[2022-05-09] MEDS: metFORMIN HCl ER 500 MG TAB.ER.24H PO (07:24)
[2022-05-09] MEDS: Docusate Sodium 100 MG CAPSULE PO (07:25)
[2022-05-09] MEDS: oxyCODONE HCl ER 10 MG TAB.ER.12H PO (07:25)
[2022-05-09] MEDS: Metoprolol Succinate ER 100 MG TAB.ER.24H PO (07:25)
[2022-05-09] MEDS: Acetaminophen 325 MG TABLET 650 MG PO (07:25)
--- NOTE | 2022-05-09 10:02 | PM.PNORT ---
Subjective Subjective Date of Service: 05/09/22 Interval history: POD1 s/p RT RTSA. Pain is well managed. No overnight events. Working with OT this morning. Physical Exam Vital Signs: Vital Signs: Last Vital Signs Temp 98.3 F 05/09/22 07:14 Pulse 67 05/09/22 07:14 Resp 16 05/09/22 07:14 BP 164/74 H 05/09/22 07:14 Pulse Ox 92 05/09/22 07:14 O2 Del Method 05/09/22 07:14 O2 Flow Rate 2 05/08/22 13:25 BMI result Body Mass Index 27.9 Const: General: cooperative, healthy appearing and no acute distress Resp: Effort & Inspection: normal respiratory effort and able to speak in complete sentences Cardio: Rate: regular rate Peripheral pulses: Peripheral pulses 2+ throughout GI: Palpation (GI): Soft to palpation Skin: Lesions: no lesions Rashes: no rashes Extrem: Other: right shoulder Aquacel dressing is clean dry and intact. Patient is able to flex, extend, abduct, adduct, finger cross, okay sign, thumbs-up without deficit. Sensation reportedly intact. Radial pulse intact. Procedures Date of Service Date of Service: 05/09/22 Progress Note: A&P Assessment and plan (1) Status post reverse total arthroplasty of right shoulder: Status: Acute Assessment and Plan: Continue pain mgmnt Begin ASA for dvt ppx begin PT/OT for right reverse total shoulder arthroplasty Dispo planning-Pending PT/OT eval, pain mgmnt. Time Spent With Patient Time: Total time spent is greater than 50% in coordination of care (as documented) at patient's floor/unit and/or counseling patient: Quality Stroke Does the patient have a stroke diagnosis?: No VTE Prior VTE?: No VTE Risk Level:: Medical - moderate - high VTE Device Contraindication: N/A - Device Ordered VTE Drug Contraindication: N/A - Med Ordered
[2022-05-09 11:26] VITALS: BP 124/59; PULSE 69; RESP 16; TEMP 36.4; O2SAT 92
--- NOTE | 2022-05-09 13:24 | P.DS_ITS ---
DS: Providers Provider Date of Service: 05/09/22 Date of admission: 05/08/22 07:24 Primary care physician: Unknown Physician Consults: 05/08/22 15:27 Consult to Hospitalist Routine Consulting Provider: Hospitalist Reason For Exam: routine medical management DS: Diagnosis Discharge Diagnosis (1) Status post reverse total arthroplasty of right shoulder: Status: Acute DS: Summary Hospital Course Hospital Course: The patient underwent a successful right reverse total shoulder arthroplasty, they were transferred to PACU and then to the floor to recover. During their stay, their vitals were stable, afebrile at 97.6. Labs were unremarkable, H/H 10.8/33.5. POD 1 they were started on Aspirin 325mg po bid for DVT ppx, they also received Physical Therapy services twice a day. Prior to discharge, their dressing was changed, incision clean dry and intact, new Aquacel dressing applied and the plan was to be discharged home with VNA services. Time Spent with Patient Time attestation: Total time spent providing and/or coordinating discharge services: Discharge coordination time: Less than 30 minutes Quality: Safe Use of Opioids Does Pt have an Active Cancer Diagnosis on the Problem List?: No Quality: Stroke Does the patient have a stroke diagnosis?: No Physical Exam Vital Signs: Vital Signs: Last Vital Signs Temp 97.6 F 05/09/22 11:26 Pulse 69 05/09/22 11:26 Resp 16 05/09/22 11:26 BP 124/59 L 05/09/22 11:26 Pulse Ox 92 05/09/22 11:26 O2 Del Method 05/09/22 11:26 O2 Flow Rate 2 05/08/22 13:25 BMI result Body Mass Index 27.9 Const: General: cooperative, healthy appearing and no acute distress Resp: Effort & Inspection: normal respiratory effort and able to speak in complete sentences Cardio: Rate: regular rate Peripheral pulses: Peripheral pulses 2+ throughout GI: Palpation (GI): Soft to palpation Skin: Lesions: no lesions Rashes: no rashes Extrem: Other: Right shoulder Aquacel dressing is clean dry and intact. Patient is able to flex, extend, abduct, adduct, finger cross, okay sign, thumbs-up without deficit. Sensation reportedly intact. Radial pulse intact. DS: Data Data Completed and Pending Pending studies at discharge: Pending at discharge 05/08/22 10:59 Surgical [PTH] Routine Labs on day of discharge: Laboratory Results - last 24 hr 05/09/22 05/09/22 05:45 05:45 WBC 8.7 RBC 3.93 L Hgb 10.8 L Hct 33.5 L MCV 85.2 MCH 27.5 MCHC 32.2 RDW 13.6 Plt Count 239 MPV 10.4 Immature Gran % (Auto) 0.5 H Neut % (Auto) 70.9 Lymph % (Auto) 15.1 L [place] % (Auto) 13.4 H Eos % (Auto) 0.0 Baso % (Auto) 0.1 Lymph # (Auto) 1.3 [place] # (Auto) 1.2 Eos # (Auto) 0.0 Baso # (Auto) 0.0 Abs Immat Gran (auto) 0.04 H Absolute Neuts (auto) 6.2 Absolute Nucleated RBC 0.000 Nucleated RBC % (auto) 0.0 Sodium 136 Potassium 4.2 Chloride 105 Carbon Dioxide 25 Anion Gap 10 L BUN 11 Creatinine 0.66 Estim Creat Clear Calc 76.3 Estimated GFR > 60 Fasting Glucose 132 H Calcium 8.8 D Discharge Plan Discharge Patient Disposition: Home Health Service Discharge Diagnosis: s/p rt rtsa Referrals: [facility] - [place] [Outside] - 1 Day (NOW [facility]. PT WILL HAVE HOME OCCUPATIONAL THERAPY) Physician,Unknown J [Physician] - 1 Week Discharge Medications: New acetaminophen 325 mg Tablet 650 mg PO Q6H PRN (Reason: Pain, Mild (Pain Scale 1-3)) 30 Days Qty: 240 0RF aspirin 325 mg Tablet 325 mg PO BID 42 Days Qty: 84 0RF docusate sodium 100 mg Capsule 100 mg PO BID 30 Days Qty: 60 0RF oxycodone 10 mg tablet 10 mg PO Q4H PRN (Reason: pain) 7 Days Qty: 42 0RF Rx Instructions: Partial Fill upon patient request. ondansetron 8 mg tablet,disintegrating 8 mg PO DAILY 5 Days Qty: 5 0RF Continued simvastatin 20 mg tablet 20 mg PO BEDTIME Qty: 30 6RF metoprolol succinate 100 mg tablet extended release 24 hr 100 mg PO DAILY Qty: 30 6RF biotin 5,000 mcg Tablet, Sublingual 5,000 mcg SUBLINGUAL DAILY metformin 500 mg tablet extended release 24 hr 500 mg PO QAM cholecalciferol (vitamin D3) 50 mcg (2,000 unit) capsule 50 mcg PO DAILY aspirin [Adult Low Dose Aspirin] 81 mg tablet,delayed release (DR/EC) 81 mg PO DAILY Discharge Orders: Discharge Order (Routine); Ordered 05/09/22 Ordered By: Bridgette Glover Activity on Discharge: As tolerated Stand Alone Forms: Patient Portal Discharge page Care Plan Goals: restore fxn to right shoulder Health Concerns: shldr Plan of Treatment: remain in the sling at all times may come out to do pendulums oxycodone 10mg by mouth every 4 hours continue aspirin for DVT ppx Followup with orthopedics in 7-10 days Assessment: stable for discharge Discharge Date/Time: 05/09/22 14:52
--- NOTE | 2022-05-09 13:48 | MHC.CM.PN ---
PER ORTHO PT DISCHARGING HOME TODAY W/NEW [facility], [facility]
--- NOTE | 2022-05-09 13:55 | P.F2F_ITS ---
Service Date Service Date: 05/09/22 Encounter Date of encounter: 05/09/22 Reasons for Services Signs and symptoms assessed: Pt. is considered homebound due to recent surgery. Unable to drive, poor balance, poor gait mechanics. Reason for physical therapy: home safety and mobility, therapeutic exercises, restore joint function, gait/transfer training, assess need for DME and ADL training Reason for occupational therapy: home safety and mobility, therapeutic exercises, restore joint function, gait/transfer training, assess need for DME and ADL training Homebound: Leaving the home is medically contraindicated at this time without the asist of a device and/or another person due th the listed conditions above and below. Reason homebound: unsteady gait / fall risk, pain with ambulation, pain with transfers and unable to drive Certification: Based on the above findings, I certify that this patient is confined to the home and needs intermittent detention care, physical therapy and/or speech therapy, or continues to need occupational therapy. The patient is under my care, and I have initiated the establishment of the plan of care. The patient will be followed by a physician who will periodically review the plan of care.
== END 2022-05-09 14:52 | disposition home health service (06) | DRG 483 ==
LOC: HO.SSSA 07:26 → HO.S3 15:00
PROVIDERS: Physician Assistant; Admitting Provider Orthopaedic Surgery; PCP Internal Medicine; Visit Provider Orthopaedic Surgery
PROC: 0RRJ0JZ Replacement of Right Shoulder Joint with Synthetic Substitute, Open Approach (ICD-10-PCS; CPT 23472; principal; 2022-05-08 09:50)
DX: M12.811 Other specific arthropathies, not elsewhere classified, right shoulder (principal); I10 Essential (primary) hypertension; E78.5 Hyperlipidemia, unspecified; E87.5 Hyperkalemia; E11.9 Type 2 diabetes mellitus without complications; Z20.822 Contact with and (suspected) exposure to COVID-19; Z88.1 Allergy status to other antibiotic agents; Z88.6 Allergy status to analgesic agent; Z79.82 Long term (current) use of aspirin; Z79.899 Other long term (current) drug therapy
CPT/HCPCS: 23472; 36415; 73030; 80048; 82947; 85025; 86850; 86900; 86901; 87635; 87640; 87641; 88304; 88311; 97165; C1713; C1776; J1100; J1170; J2250; J2370; J2405; J2795; J3010; J3370

== ENCOUNTER 2022-05-24 07:12 | Outpatient (RCR) | payer MEDICARE, OTHER, SELFPAY | END 2022-10-08 13:01 | disposition home or self-care (01) | LOC: HO.PT 07:12 | PROVIDERS: Visit Provider Physician Assistant | DX: Z96.611 Presence of right artificial shoulder joint (principal) ==

== ENCOUNTER 2022-06-22 07:48 | Outpatient (REF) | payer MEDICARE, OTHER, SELFPAY ==
--- NOTE | ~2022-06-22 | XR_ITS ---
EXAMINATION: XR SHOULDER, RIGHT CLINICAL INFORMATION: Right shoulder replacement COMPARISON: Previous x-ray 05/08/2022 TECHNIQUE: 2 views of the right shoulder. FINDINGS: There is a right shoulder replacement satisfactory position no fracture or dislocation is seen. There is arthritis at the acromioclavicular joint. Soft tissues are unremarkable. XR/XR shoulder RT min 2V IMPRESSION: Satisfactory appearance of right shoulder replacement.
== END 2022-06-22 07:49 | disposition home or self-care (01) ==
LOC: HO.HOSX 07:48
PROVIDERS: Visit Provider Physician Assistant
DX: M25.511 Pain in right shoulder (principal)
CPT/HCPCS: 73030

== ENCOUNTER → 2022-06-22 09:22 | Outpatient (BNVA) | payer MEDICARE, OTHER, SELFPAY | PROVIDERS: PCP Internal Medicine; Visit Provider Physician Assistant | DX: M25.511 Pain in right shoulder (principal); Z96.611 Presence of right artificial shoulder joint | CPT/HCPCS: 99212 ==

== ENCOUNTER → 2022-07-18 09:56 | Outpatient (BNVA) | payer MEDICARE, OTHER, SELFPAY | PROVIDERS: PCP Internal Medicine; Visit Provider Physician Assistant | DX: S50.01XA Contusion of right elbow, initial encounter (principal) | CPT/HCPCS: 99212 ==

== ENCOUNTER 2022-07-30 07:44 | Outpatient (REF) | payer MEDICARE, OTHER, SELFPAY ==
[2022-07-30 11:42] LABS: Basophils Absolute Auto 0.1 X10*3/uL (0.0-0.2); Basophils Percent Auto 0.8 % (0-2); Eosinophils Absolute Auto 0.2 X10*3/uL (0.0-0.4); Eosinophils Percent Auto 3.3 % (0-4); Hematocrit 40.2 % (37.0-47.0); Hemoglobin 12.5 g/dl (12.0-16.0); Imm Gran Abs Auto 0.02 X10*3/uL (0.00-0.03); Imm Gran Pct Auto 0.3 % (0.0-0.4); Lymphocytes Absolute Auto 1.6 X10*3/uL (1.2-4.9); Lymphocytes Percent Auto 26.6 % (20-40); MANUAL DIFF FLAG NO; Mean Corpuscular HGB Conc 31.1 g/dl (31.0-35.0); Mean Corpuscular Hemoglobin 26.7 pg (27.0-33.0); Mean Corpuscular Volume 85.9 fL (80.0-98.0); Mean Platelet Volume 10.8 fL (9.4-12.3); Monocytes Absolute Auto 0.8 X10*3/uL (0.1-1.2); Monocytes Percent Auto 13.1 % (2-11); Neutrophils Absolute Auto 3.4 x10*3/uL (2.0-8.3); Neutrophils Percent Auto 55.9 % (45-73); Platelet Count 329 X10*3/uL (160-400); Red Blood Count 4.68 X10*6/uL (4.20-5.50); Red Cell Distribution Width 15.3 % (11.0-16.0)
[2022-07-30 12:19] LABS: Creatinine Urine 120.97 mg/dL; Microalbum/Creatinine Ratio Ur 19.8 ug/mg cr
[2022-07-30 12:20] LABS: Alanine Aminotransferase 10 U/L (0-31); Anion Gap 14 (12-20); Aspartate Amino Transferase 15 U/L (5-31); Blood Urea Nitrogen 13 mg/dL (9-16); Calcium 9.8 mg/dL (8.4-10.2); Carbon Dioxide 27 mmol/L (22-29); Chloride 103 mmol/L (96-108); Cholesterol 163 mg/dL; Estimated Glomerular Filt Rate > 60; Glucose Fasting 111 mg/dL (60-99); HDL Cholesterol 50 mg/dL; LDL Cholesterol Calculated 98 mg/dl; Potassium 4.2 mmol/L (3.3-5.1); Sodium 140 mmol/L (135-145); Triglycerides 78 mg/dL
[2022-07-30 12:31] LABS: Estimated Average Glucose 123 mg/dL; Hemoglobin A1c % 5.9 %
[2022-07-30 12:43] LABS: Vitamin D 25-OH Total 91.7 ng/mL (>30)
== END 2022-07-30 07:45 | disposition home or self-care (01) ==
LOC: HO.HMGCLDS 07:44
PROVIDERS: PCP Internal Medicine; Visit Provider Internal Medicine
DX: E11.9 Type 2 diabetes mellitus without complications (principal); M85.852 Other specified disorders of bone density and structure, left thigh; I10 Essential (primary) hypertension; E78.5 Hyperlipidemia, unspecified; N95.9 Unspecified menopausal and perimenopausal disorder
CPT/HCPCS: 36415; 80048; 80061; 82043; 82306; 83036; 84450; 84460; 85025

== ENCOUNTER → 2022-08-06 08:54 | Outpatient (BNVA) | payer MEDICARE, OTHER, SELFPAY | PROVIDERS: PCP Internal Medicine; Visit Provider Orthopaedic Surgery | DX: Z47.1 Aftercare following joint replacement surgery (principal); M54.16 Radiculopathy, lumbar region; Z96.611 Presence of right artificial shoulder joint | CPT/HCPCS: 99212 ==

== ENCOUNTER 2022-08-06 08:58 | Outpatient (REF) | payer MEDICARE, OTHER, SELFPAY ==
--- NOTE | ~2022-08-06 | XR_ITS ---
EXAMINATION: XR SHOULDER, RIGHT CLINICAL INFORMATION: Right shoulder pain. COMPARISON: 08/22/2022. TECHNIQUE: 2 views of the right shoulder. FINDINGS: Prosthetic components of the reverse total shoulder arthroplasty appear appropriately situated. A small healing periprosthetic fracture is evident at the margin of the humerus, best seen on axial views. Osseous bridging is seen between the fragments. Alignment remains unchanged. No new periprosthetic fractures or lucency. Mild soft tissue swelling. Moderate acromioclavicular osteoarthritis. XR/XR shoulder RT min 2V IMPRESSION: Small healing periprosthetic fracture at the proximal humerus with unchanged alignment. Right reverse total shoulder arthroplasty is otherwise normal.
== END 2022-08-06 08:59 | disposition home or self-care (01) ==
LOC: HO.HOSX 08:58
PROVIDERS: Visit Provider Orthopaedic Surgery
DX: M25.511 Pain in right shoulder (principal)
CPT/HCPCS: 73030

== ENCOUNTER → 2022-08-16 09:38 | Outpatient (BNVA) | payer MEDICARE, OTHER, SELFPAY | PROVIDERS: PCP Internal Medicine; Visit Provider Anesthesiology | DX: M47.816 Spondylosis without myelopathy or radiculopathy, lumbar region (principal); M43.16 Spondylolisthesis, lumbar region; M51.36 Other intervertebral disc degeneration, lumbar region | CPT/HCPCS: 99212 ==

== ENCOUNTER 2022-09-11 05:54 | Outpatient (REF) | payer MEDICARE, OTHER, SELFPAY ==
--- NOTE | ~2022-09-11 | FL_ITS ---
EXAMINATION: XR FLUOROSCOPY WITH IMAGES CLINICAL INFORMATION: Lumbar spine injection. COMPARISON: MRI of the lumbar spine dated 08/17/2021. TECHNIQUE: Fluoroscopy performed by Dr. Espinoza. Fluoroscopy time: 0.8 minutes. Cumulative Dose: 17.1 mGy. DAP: 4.25 Gy-cm2. Images: 14. FL/FL guidance in treatment room FINDINGS/IMPRESSION: Contrast is seen in the right facet at L3-4. Multilevel degenerative changes as previously seen. Please refer to the procedure report for detailed findings.
== END 2022-09-11 05:55 | disposition home or self-care (01) ==
LOC: CF 05:54
PROVIDERS: Visit Provider Anesthesiology
DX: M47.26 Other spondylosis with radiculopathy, lumbar region (principal); M51.36 Other intervertebral disc degeneration, lumbar region
CPT/HCPCS: 64483; 64484; J3300

== ENCOUNTER → 2022-10-17 09:36 | Outpatient (BNVA) | payer MEDICARE, OTHER, SELFPAY | PROVIDERS: PCP Internal Medicine; Visit Provider Anesthesiology | DX: M47.816 Spondylosis without myelopathy or radiculopathy, lumbar region (principal); M43.16 Spondylolisthesis, lumbar region; M51.36 Other intervertebral disc degeneration, lumbar region | CPT/HCPCS: 99212 ==

== ENCOUNTER 2022-11-23 07:44 | Outpatient (REF) | payer MEDICARE, OTHER, SELFPAY ==
[2022-11-23 12:00] LABS: Estimated Average Glucose 134 mg/dL; Hemoglobin A1C 148.3747 umol/L; Hemoglobin A1c % 6.3 %
[2022-11-23 12:07] LABS: Alanine Aminotransferase 11 U/L (0-31); Anion Gap 15 (12-20); Aspartate Amino Transferase 16 U/L (5-31); Blood Urea Nitrogen 15 mg/dL (9-16); Calcium 9.6 mg/dL (8.4-10.2); Carbon Dioxide 26 mmol/L (22-29); Chloride 105 mmol/L (96-108); Cholesterol 182 mg/dL; Estimated Glomerular Filt Rate > 60; Glucose Fasting 95 mg/dL (60-99); HDL Cholesterol 60 mg/dL; LDL Cholesterol Calculated 100 mg/dl; Potassium 4.5 mmol/L (3.3-5.1); Sodium 141 mmol/L (135-145); Triglycerides 110 mg/dL
[2022-11-23 12:20] LABS: Creatinine Urine 85.52 mg/dL; Microalbum/Creatinine Ratio Ur 12.8 ug/mg cr
[2022-11-23 12:27] LABS: Vitamin D 25-OH Total 79.7 ng/mL (>30)
== END 2022-11-23 07:45 | disposition home or self-care (01) ==
LOC: HO.HMGCLDS 07:44
PROVIDERS: PCP Internal Medicine; Visit Provider Internal Medicine
DX: E78.5 Hyperlipidemia, unspecified (principal); I10 Essential (primary) hypertension; M85.852 Other specified disorders of bone density and structure, left thigh; N95.9 Unspecified menopausal and perimenopausal disorder; E11.9 Type 2 diabetes mellitus without complications
CPT/HCPCS: 36415; 80048; 80061; 82043; 82306; 83036; 84450; 84460

== ENCOUNTER 2023-01-21 09:21 | Outpatient (REF) | payer MEDICARE, OTHER, SELFPAY ==
--- NOTE | ~2023-01-21 | MM_ITS ---
EXAMINATION: MM SCREENING DIGITAL BREAST TOMOSYNTHESIS, BILATERAL CLINICAL INFORMATION: Screening. Asymptomatic. The lifetime risk of breast cancer based on the Tyrer-Cuzick Model is 3%. COMPARISON: Mammography: 06/21/2021, 05/23/2020, 12/27/2018 TECHNIQUE: Digital breast tomosynthesis is performed in both the craniocaudal and mediolateral oblique views along with computer-aided detection (CAD). Synthesized 2D images are generated from the tomosynthesis. Additional right MLO view is provided. FINDINGS: There are scattered areas of fibroglandular density (ACR BI-RADS breast composition Category b). There are no significant masses, abnormal calcifications, or other abnormalities. No architectural abnormality or developing density or significant change from prior studies. The axilla are unremarkable. MM/MM tomosynthesis screening BI IMPRESSION: No mammographic evidence of malignancy. ASSESSMENT: BI-RADS 1: Negative RECOMMENDATION: Routine annual mammography screening. This patient's information was entered into a reminder system with a target due date for their next mammogram.
== END 2023-01-21 09:22 | disposition home or self-care (01) ==
LOC: HO.MAMMO 09:21
PROVIDERS: Visit Provider Internal Medicine
DX: Z12.31 Encounter for screening mammogram for malignant neoplasm of breast (principal)
CPT/HCPCS: 77063; 77067

== ENCOUNTER 2023-02-25 07:21 | Outpatient (REF) | payer MEDICARE, OTHER, SELFPAY ==
[2023-02-25 12:14] LABS: Alanine Aminotransferase 14 U/L (0-31); Anion Gap 12 (12-20); Aspartate Amino Transferase 18 U/L (5-31); Blood Urea Nitrogen 15 mg/dL (9-16); Calcium 9.3 mg/dL (8.4-10.2); Carbon Dioxide 28 mmol/L (22-29); Chloride 107 mmol/L (96-108); Cholesterol 158 mg/dL; Estimated Glomerular Filt Rate > 60; Glucose Fasting 88 mg/dL (60-99); HDL Cholesterol 55 mg/dL; LDL Cholesterol Calculated 87 mg/dl; Potassium 4.5 mmol/L (3.3-5.1); Sodium 142 mmol/L (135-145); Triglycerides 80 mg/dL; Vitamin D 25-OH Total 90.8 ng/mL (>30)
[2023-02-25 12:19] LABS: Estimated Average Glucose 137 mg/dL; Hemoglobin A1c % 6.4 %
== END 2023-02-25 07:22 | disposition home or self-care (01) ==
LOC: HO.HMGCLDS 07:21
PROVIDERS: PCP Internal Medicine; Visit Provider Internal Medicine
DX: E11.9 Type 2 diabetes mellitus without complications (principal); E78.5 Hyperlipidemia, unspecified; I10 Essential (primary) hypertension; Z78.0 Asymptomatic menopausal state
CPT/HCPCS: 36415; 80048; 80061; 82306; 83036; 84450; 84460

== ENCOUNTER 2023-06-20 07:48 | Outpatient (REF) | payer MEDICARE, OTHER, SELFPAY ==
[2023-06-20 12:12] LABS: Estimated Average Glucose 126 mg/dL
[2023-06-20 12:36] LABS: Alanine Aminotransferase 13 U/L (0-31); Anion Gap 12 (12-20); Aspartate Amino Transferase 17 U/L (5-31); Blood Urea Nitrogen 15 mg/dL (9-16); Calcium 9.9 mg/dL (8.4-10.2); Carbon Dioxide 27 mmol/L (22-29); Chloride 107 mmol/L (96-108); Cholesterol 171 mg/dL; Estimated Glomerular Filt Rate > 60; Glucose Fasting 98 mg/dL (60-99); HDL Cholesterol 57 mg/dL; LDL Cholesterol Calculated 96 mg/dl; Potassium 4.5 mmol/L (3.3-5.1); Sodium 141 mmol/L (135-145); Triglycerides 91 mg/dL
[2023-06-20 12:49] LABS: Microalbum/Creatinine Ratio Ur 8.1 ug/mg cr
== END 2023-06-20 07:49 | disposition home or self-care (01) ==
LOC: HO.HMGCLDS 07:48
PROVIDERS: PCP Internal Medicine; Visit Provider Internal Medicine
DX: E78.5 Hyperlipidemia, unspecified (principal); I10 Essential (primary) hypertension; E11.9 Type 2 diabetes mellitus without complications
CPT/HCPCS: 36415; 80048; 80061; 82043; 83036; 84450; 84460

== ENCOUNTER 2023-06-24 10:11 | Outpatient (AMB) | payer MEDICARE, OTHER, SELFPAY ==
--- NOTE | 2023-06-24 10:48 | A.OFFPC_ITS ---
Vital Signs 06/24/23 10:49 Height 5 ft 6 in Weight 159 lb 4 oz BMI 25.7 BP 136/72 Blood Pressure Location Lt brachial Position Sitting Pulse 64 Pulse Source Pulse Oximeter Pulse Oximetry (%) 98 Intake Visit Reasons: 4m follow up dm,lipids Intake Note: pt is here for 4 month f/u on labs Flat Surfacer Required: No Accompanied by: Self / Same As Patient Allergies cephalexin Allergy (Intermediate, Verified 06/24/23 10:50) facial rash celecoxib [Celebrex] Allergy (Unknown, Verified 06/24/23 10:50) patient unsure what reaction was Medication List - Last Reconciled 06/24/23 by Francia Poole MD acetaminophen 650 mg (2 x 325 mg) PO Q6H PRN 30 days aspirin (Adult Low Dose Aspirin) 81 mg PO DAILY biotin 5,000 mcg sublingual DAILY cholecalciferol (vitamin D3) 50 mcg PO DAILY metformin ER 500 mg PO QAM metoprolol succinate ER 100 mg PO DAILY omega-3 acid ethyl esters 1 cap PO DAILY simvastatin 20 mg PO BEDTIME Tobacco use date assessed: 06/24/23 Fall risk assessment: No Falls in past year Last assessed Fall Risk: 06/24/23 Dental Screening Dental Screen Date: 06/24/23 Did you have a dental visit in the last 12 months?: Yes Did you have a dental problem in the last 6 months where you did not have access to dental care?: No Was dental information given to patient?: Patient has dentist HPI 4m follow up dm,lipids HPI Details 77-year-old lady here today for follow-up on her diabetes mellitus , hypertension, and lipids. PE he has been compliant with taking her medications, exercises regularly. She also started taking Cresco 3 fatty acid supplements which he states has been helping her joints and her low back pain. She had recent fasting labs done which showed normal results with hemoglobin A1c now at 6% and fasting lipids within normal limits. Patient states that she has a nodular mass on left forearm which she would like removed. This was removed by Dr. Reynolds in 2010. [facility] Medical History (Updated 06/24/23 @ 11:09 by Francia Poole MD) COVID-19 vaccine series completed Dyslipidemia Essential hypertension Generalized anxiety disorder Mass of left forearm Menopause Osteopenia of left femoral neck Pneumococcal vaccination declined Refused influenza vaccine Rotator cuff tear arthropathy of right shoulder Spondylolisthesis of lumbar region Type 2 diabetes mellitus without complication, without long-term current use of insulin Surgical History History of colonoscopy History of repair of right rotator cuff Hx of varicose vein ligation Family History Father CVD (cardiovascular disease) Myocardial infarction Mother History of CVA (cerebrovascular accident) Stroke Brother HTN (hypertension) Hyperlipidemia Diabetes mellitus Brother No problems noted. Son No problems noted. Daughter No problems noted. Social History Housing: House Are you a primary critical care nurse practitioner to a significant other at home: No Do you presently have visiting nurse or other home services: No Patient Tobacco Use Status: Never used Tobacco e-Cigarette/Vaping Use: Never Used Second Hand Smoke Exposure: No service: No Current occupational status: retired Current occupation: [employer] Cognitive needs: No Hearing needs: No Vision needs: Yes Questionnaire PHQ-9 Over the last 2 weeks, how often have you been bothered by any of the following problems? Depression Screening Interpretation: Negative Source: Developed by Drs. Blas Mahajan, Pat Pleitez, Wayne Fishre and colleagues, with an educational pepe from [employer]. Thrive Questionnaire Date Thrive assessed: 11/26/22 AUDIT C Alcohol Use Questionnaire (AUDIT-C) 1. How often do you have a drink containing alcohol?: Never Total Score: 0 ADELITA-7 AMB Questionnaire ADELITA-7 Date ADELITA - 7 assessed: 11/26/22 Source: Developed by Drs. Blas Mahajan, Wayne Snider and colleagues, with an educational pepe from [employer]. Review of Systems Const Denies excessive sweating and Denies fatigue Eyes Details: has appt with [facility] Denies change in vision ENT Reports Normal hearing present and Reports nasal trauma Card Denies chest pain at rest, Denies chest pain with activity, Denies rapid heart rate, Denies pedal edema and Denies dyspnea Resp Denies chest congestion, Denies cough and Denies dyspnea GI Denies abdominal pain, Denies belching, Denies melena and Denies bloating Denies hematuria, Denies urinary frequency, Denies difficulty voiding, Denies hot flashes, Denies dysuria, Denies prolapse symptoms, Denies urinary incontinence and Denies vaginal discharge Musc Reports no additional complaints Skin/Breast Reports as per HPI Neuro Reports Normal hearing present, Denies seizure-like activity and Denies Sensory deficit (Neuro) Psych Reports no additional complaints Endo Denies excessive sweating and Denies fatigue Clinton/Lymph Reports no additional complaints Aller/Immun Reports no additional complaints Physical exam (Primary Care) Vital Signs: Last Vital Signs Pulse 64 06/24/23 10:49 BP 136/72 06/24/23 10:49 Pulse Ox 98 06/24/23 10:49 BMI result Body Mass Index 25.7 Tobacco/Smoking Status: Tobacco use Status Tobacco use date assessed 06/24/23 06/24/23 10:53 Patient Tobacco Use Status Never used Tobacco 06/24/23 10:49 e-Cigarette/Vaping Use Never Used 06/24/23 10:49 Depression Screening Interpretation: Negative Thrive Assessment: Date of Thrive Assessment Date Thrive assessed 11/26/22 06/24/23 10:49 Const General: healthy appearing, comfortable, no acute distress and alert Orientation/consciousness: patient oriented x3 HENMT Other: Normocephalic atraumatic, normal external auditory canal and tympanic membrane. , General nose exam: Normal external nose present and No nasal discharge present Eyes General: appearance normal, both eyes and all related structures Neck Neck: Yes full ROM, Yes no lymphadenopathy and Yes supple Resp Auscultation: clear to auscultation bilaterally Cardio Other: S1-S2 present regular rate and rhythm GI Other: Normal bowel sounds, soft, nontender, no mass palpated Back/Spine/Pelvis Back: No back tenderness Skin Other: 2 Nodular mass on left forearm, nontender to palpation Neuro General: patient oriented x3, gait normal, tone normal, no focal motor deficits, CN's II-XI intact bilaterally and normal sensation to monofilament Cranial nerves: Yes Normal hearing present Sensory Exam: No Sensory deficit (Neuro) Extrem General: Yes normal to inspection, Yes full ROM, Yes no joint enlargement, Yes no pedal edema, Yes no calf tenderness and Yes normal gait Results Reviewed Results Reviewed: ENTERED: 06/20/23-4632 JERE CHICAS: ORDERED: Met Prof Fast, AST, ALT, Lipid Panel Test Result Flag Reference Site Sodium 141 135-145 mmol/L Potassium 4.5 3.3-5.1 mmol/L CL 107 96-108 mmol/L CO2 27 22-29 mmol/L Gap 12 12-20 BUN 15 9-16 mg/dL Creat 0.78 0.5-1.4 mg/dL EGFR > 60 NOTE: For -Honduran individuals, multiply the result by 1.210. Chronic Kidney Disease: Estimated GFR < 60 mL/min/1.73m2 Severe Kidney Disease: Estimated GFR < 15 mL/min/1.73m2 FBS 98 60-99 mg/dL CA 9.9 # 8.4-10.2 mg/dL AST (GOT) 17 5-31 U/L ALT (GPT) 13 0-31 U/L Triglyceride 91 mg/dL Desirable Triglyceride: less than 150 mg/dL Borderline High Triglyceride 150-199 mg/dL High Triglyceride: 200-499 mg/dL Very High Triglyceride: greater than or equal to 5OO mg/dL Chol 171 mg/dL Desirable Cholesterol: less than 200 mg/dL Borderline High Cholesterol: 200-239 mg/dL High Cholesterol: greater than 239 mg/dL LDL Calculated 96 mg/dl Desirable LDL: less than 100 mg/dL Near Optimal/Above Optimal LDL: 110-129 mg/dL Borderline High LDL: 130-159 mg/dL High LDL: 160-189 mg/dL Very High LDL: greater than or equal to 190 mg/dL HDL 57 mg/dL Desirable HDL: greater than 40 mg/dL Note: This HDL assay may give artificially low results in patients with liver disease. Laboratory Tests 06/20/23 06/20/23 07:54 08:00 Estimat Average Glucose 126 Hemoglobin A1c % 6.0 Urine Creatinine 73.60 Urine Microalbumin 6.0 Microalb/Creat Ratio 8.1 Assessment and Plan Assessment & Plan (1) Type 2 diabetes mellitus without complication, without long-term current use of insulin: Comment: taking metformin once/day-does not check glucose at home Code(s): E11.9 - Type 2 diabetes mellitus without complications Plan: Diabetes mellitus controlled, will continue on metformin ER 500 mg daily in a.m. , up-to-date with her diabetes retinopathy screening, Recent lab results reviewed with patient, with sugar and hemoglobin A1c stable and at goal . Patient advised to inspect feet daily, for any signs of injury, callus or infection.. Blood pressure goal is less than 130/80, goal LDL is less than 100 and goal hemoglobin A1c is less than 7% follow-up appointment made in--3-months, after fasting labs done. (2) Essential hypertension: Code(s): I10 - Essential (primary) hypertension (3) Dyslipidemia: Code(s): E78.5 - Hyperlipidemia, unspecified Plan: Reviewed recent fasting lipid profile with patient with levels within normal limits . Continue with simvastatin 20 mg at bedtime , in addition to adherence to low-cholesterol diet and regular exercise, at least 30 minutes 3 to 4 times a week. Advised patient to make healthy food choices, eat more fruits, vegetables, whole grains, wild caught fish and low-fat dairy. Limit amount of meat and fried or fatty food products, as well as processed foods and fast foods. Follow-up scheduled with repeat fasting lipid panel in 3 months. (4) Mass of left forearm: Code(s): R22.32 - Localized swelling, mass and lump, left upper limb Plan: Surgical consult obtained Orders: Orders Alanine Aminotransferase 10/11/23 E11.9 - Type 2 diabetes mellitus without complications, E78.5 - Hyperlipidemia, unspecified, I10 - Essential (primary) hypertension Aspartate Amino Transferase 10/11/23 E11.9 - Type 2 diabetes mellitus without complications, E78.5 - Hyperlipidemia, unspecified, I10 - Essential (primary) hypertension Basic Metabolic Panel Fasting 10/11/23 E11.9 - Type 2 diabetes mellitus without complications, E78.5 - Hyperlipidemia, unspecified, I10 - Essential (primary) hypertension Hemoglobin A1c 10/11/23 E11.9 - Type 2 diabetes mellitus without complications, E78.5 - Hyperlipidemia, unspecified, I10 - Essential (primary) hypertension Lipid Panel 10/11/23 E11.9 - Type 2 diabetes mellitus without complications, E78.5 - Hyperlipidemia, unspecified, I10 - Essential (primary) hypertension Referrals General Surgery Referral R22.32 - Localized swelling, mass and lump, left upper limb Coding Level of Care Code Est Pt Level 4 (05218) Diagnoses Type 2 diabetes mellitus without complication, without long-term current use of insulin E11.9 Essential hypertension I10 Dyslipidemia E78.5 Mass of left forearm R22.32
[2023-06-24 10:49] VITALS: BP 136/72; PULSE 64; O2SAT 98; BMI 25.7
== END 2023-06-24 14:29 | disposition home or self-care (01) ==
PROVIDERS: Visit Provider Internal Medicine
DX: E11.9 Type 2 diabetes mellitus without complications (principal); I10 Essential (primary) hypertension; E78.5 Hyperlipidemia, unspecified; R22.32 Localized swelling, mass and lump, left upper limb
CPT/HCPCS: 99214

== ENCOUNTER 2023-07-09 08:50 | Outpatient (AMB) | payer MEDICARE, OTHER, SELFPAY ==
[2023-07-09 09:11] VITALS: BP 142/67; PULSE 68; BMI 25.0
--- NOTE | 2023-07-09 09:11 | MHC.OFFVIS ---
Intake Vital Signs 07/09/23 09:11 Height 5 ft 6 in Weight 155 lb BMI 25.0 BP 142/67 H Blood Pressure Location Rt brachial Position Sitting Pulse 68 Intake Visit Reasons: Localized swelling, mass and lump, left upper limb Intake Note: Patient referred by Dr. Poloe for growths on Lt forearm. Reports growths were removed 14 yrs ago. Pt noticed growths have been slowly growing for the past 3yrs. C/o itch and pain with pressure. No hx of skin ca. Scientific Helper Required: No Accompanied by: Self / Same As Patient Allergies cephalexin Allergy (Intermediate, Verified 07/09/23 09:13) facial rash celecoxib [Celebrex] Allergy (Unknown, Verified 07/09/23 09:13) patient unsure what reaction was Medication List - Last Reconciled 07/09/23 by Clay Roberts MD acetaminophen 650 mg (2 x 325 mg) PO Q6H PRN 30 days aspirin (Adult Low Dose Aspirin) 81 mg PO DAILY biotin 5,000 mcg sublingual DAILY cholecalciferol (vitamin D3) 50 mcg PO DAILY metformin ER 500 mg PO QAM metoprolol succinate ER 100 mg PO DAILY omega-3 acid ethyl esters 1 cap PO DAILY simvastatin 20 mg PO BEDTIME HPI HPI Comments History of Present Illness Details Patient presents for evaluation of a left proximal forearm near the elbow soft tissue mass which is become more symptomatic over the last several years. Patient had a cyst/mass excised from this area 12 years ago and it has apparently recurred. No other such lesions elsewhere. Chart was reviewed patient evaluated. [facility] Medical History COVID-19 vaccine series completed Dyslipidemia Essential hypertension Generalized anxiety disorder Mass of left forearm Menopause Osteopenia of left femoral neck Pneumococcal vaccination declined Refused influenza vaccine Rotator cuff tear arthropathy of right shoulder Spondylolisthesis of lumbar region Type 2 diabetes mellitus without complication, without long-term current use of insulin Surgical History History of colonoscopy History of repair of right rotator cuff Hx of varicose vein ligation Family History Father CVD (cardiovascular disease) Myocardial infarction Mother History of CVA (cerebrovascular accident) Stroke Brother HTN (hypertension) Hyperlipidemia Diabetes mellitus Brother No problems noted. Son No problems noted. Daughter No problems noted. Social History Housing: House Are you a primary resident care supervisor to a significant other at home: No Do you presently have visiting nurse or other home services: No Patient Tobacco Use Status: Never used Tobacco e-Cigarette/Vaping Use: Never Used Second Hand Smoke Exposure: No service: No Current occupational status: retired Current occupation: [employer] Cognitive needs: No Hearing needs: No Vision needs: Yes Physical Exam Vital Signs: Last Vital Signs Pulse 68 07/09/23 09:11 BP 142/67 H 07/09/23 09:11 BMI result Body Mass Index 25.0 Chest Other: Chest sounds bilaterally, HS 1 in 2 GI Other: Abdomen soft, benign Extrem Other: Most noteworthy for approximately 4 x 3 cm proximal left forearm soft tissue mass with an overlying scar from the previous excision attempt. Extremities otherwise grossly neurovascularly intact Assessment & Plan Assessment & Plan (1) Mass of left forearm: Code(s): R22.32 - Localized swelling, mass and lump, left upper limb Plan Risks, benefits, alternatives of excision of left forearm soft tissue mass reviewed the patient included but not limited to bleeding, infection, recurrence, numbness, pain, scarring the patient was to proceed. All questions were answered. Arrangements will be made for this. Coding Level of Care Code New Pt Level 4 (47595) Diagnoses Mass of left forearm R22.32
== END 2023-07-09 09:19 | disposition home or self-care (01) ==
PROVIDERS: PCP Internal Medicine; Visit Provider Surgery
DX: R22.32 Localized swelling, mass and lump, left upper limb (principal)
CPT/HCPCS: 99204

== ENCOUNTER → 2023-07-09 08:50 | Outpatient (BNVA) | payer MEDICARE, OTHER, SELFPAY | PROVIDERS: PCP Internal Medicine; Visit Provider Surgery | DX: R22.32 Localized swelling, mass and lump, left upper limb (principal) | CPT/HCPCS: 99202 ==

== ENCOUNTER 2023-08-01 05:54 | Day surgery (SDC) | payer MEDICARE, OTHER, SELFPAY ==
[2023-07-29 15:05] VITALS: BMI 25.0
--- NOTE | 2023-07-31 08:44 | HO.ANESPROP2 ---
Documented by User: Christine Burdick NP 07/31/23 08:45 HPI - Anesthesia Eval Consult details Narrative: 77yo F for Left Wide Local Excision Forearm Mass PMFSH Active Problems Active Problems: All Active Problems (Updated 11/26/22 @ 11:29 by Francia Poole MD) Mass of left forearm (Acute) Refused influenza vaccine (Acute) Pneumococcal vaccination declined (Acute) Lumbar radiculopathy (Acute) Type 2 diabetes mellitus without complication, without long-term current use of insulin (Acute) Osteopenia of left femoral neck (Acute) Essential hypertension (Acute) Dyslipidemia (Acute) Status post reverse total arthroplasty of right shoulder (Acute) Menopause (Acute) Past Medical History Medical History COVID-19 vaccine series completed Dyslipidemia Essential hypertension Generalized anxiety disorder Mass of left forearm Menopause Osteopenia of left femoral neck Pneumococcal vaccination declined Refused influenza vaccine Rotator cuff tear arthropathy of right shoulder Spondylolisthesis of lumbar region Type 2 diabetes mellitus without complication, without long-term current use of insulin Family History Family History Father CVD (cardiovascular disease) Myocardial infarction Mother History of CVA (cerebrovascular accident) Stroke Brother HTN (hypertension) Hyperlipidemia Diabetes mellitus Brother No problems noted. Son No problems noted. Daughter No problems noted. Family history of problems with anesthesia: No Surgical History Surgical History History of colonoscopy History of repair of right rotator cuff Hx of varicose vein ligation History of Problems with Anesthesia: No Social History Social History Housing: House Are you a primary child care team lead to a significant other at home: No Do you presently have visiting nurse or other home services: No Patient Tobacco Use Status: Never used Tobacco e-Cigarette/Vaping Use: Never Used Second Hand Smoke Exposure: No Use of substances other than those prescribed or required for medical reasons: No Are you DNR?: No Advance Directives: No Advance Directives Information Provided: Yes service: No Current occupational status: retired Current occupation: [employer] Cognitive needs: No Hearing needs: No Vision needs: Yes Meds Allergies Allergy/AdvReac Type Severity Reaction Status Date / Time cephalexin Allergy Intermediate facial rash Verified 07/09/23 09:13 celecoxib [Celebrex] Allergy Unknown patient Verified 07/09/23 09:13 unsure what reaction was Home Medications Medication Instructions Recorded Confirmed Last Taken Type cholecalciferol (vitamin D3) 50 50 mcg PO DAILY 11/03/20 06/24/23 Unknown History mcg (2,000 unit) capsule aspirin 81 mg tablet,delayed 81 mg PO DAILY 03/09/21 06/24/23 04/30/22 History release (Adult Low Dose Aspirin) biotin 5,000 mcg sublingual tablet 5,000 mcg sublingual DAILY 05/01/22 06/24/23 Unknown History omega-3 acid ethyl esters 1 gram 1 cap PO DAILY 06/24/23 06/24/23 Unknown History capsule Exam Exam Date and Time: July 31, 2023 0844 Height,Weight and Vital Signs: Height 5 ft 6 in Weight 70.307 kg Pertinent Lab Results Pertinent Lab Results: Laboratory Tests 07/30/22 06/20/23 07:49 07:54 WBC 6.0 Hgb 12.5 Hct 40.2 Plt Count 329 D Sodium 141 Potassium 4.5 Chloride 107 Carbon Dioxide 27 BUN 15 Creatinine 0.78 Narrative Narrative: EKG 2021 Vent. Rate : 059 BPM Atrial Rate : 059 BPM P-R Int : 174 ms QRS Dur : 076 ms QT Int : 420 ms P-R-T Axes : 043 -12 030 degrees QTc Int : 415 ms Sinus bradycardia Minimal voltage criteria for LVH, may be normal variant ( R in aVL ) Borderline ECG When compared with ECG of 21-MAY-2014 13:13, No significant change was found Assessment and Plan Assessment Anesthesia Assessment: Chart Reviewed Final Anesthetic Review Family History of Problems with Anesthesia: No History of Problems with Anesthesia: No Documented by User: Isreal Hood MD 08/01/23 07:54 PMF Past Medical History Medical History COVID-19 vaccine series completed Dyslipidemia Essential hypertension Generalized anxiety disorder Mass of left forearm Menopause Osteopenia of left femoral neck Pneumococcal vaccination declined Refused influenza vaccine Rotator cuff tear arthropathy of right shoulder Spondylolisthesis of lumbar region Type 2 diabetes mellitus without complication, without long-term current use of insulin Family History Family History Father CVD (cardiovascular disease) Myocardial infarction Mother History of CVA (cerebrovascular accident) Stroke Brother HTN (hypertension) Hyperlipidemia Diabetes mellitus Brother No problems noted. Son No problems noted. Daughter No problems noted. Surgical History Surgical History History of colonoscopy History of repair of right rotator cuff Hx of varicose vein ligation Social History Social History Housing: House Are you a primary child care team lead to a significant other at home: No Do you presently have visiting nurse or other home services: No Patient Tobacco Use Status: Never used Tobacco e-Cigarette/Vaping Use: Never Used Second Hand Smoke Exposure: No Use of substances other than those prescribed or required for medical reasons: No Are you DNR?: No Advance Directives: No Advance Directives Information Provided: Yes service: No Current occupational status: retired Current occupation: [employer] Cognitive needs: No Hearing needs: No Vision needs: Yes Meds Allergies Allergy/AdvReac Type Severity Reaction Status Date / Time cephalexin Allergy Intermediate facial rash Verified 07/09/23 09:13 celecoxib [Celebrex] Allergy Unknown patient Verified 07/09/23 09:13 unsure what reaction was Home Medications Medication Instructions Recorded Confirmed Last Taken Type cholecalciferol (vitamin D3) 50 50 mcg PO DAILY 11/03/20 06/24/23 Unknown History mcg (2,000 unit) capsule aspirin 81 mg tablet,delayed 81 mg PO DAILY 03/09/21 06/24/23 04/30/22 History release (Adult Low Dose Aspirin) biotin 5,000 mcg sublingual tablet 5,000 mcg sublingual DAILY 05/01/22 06/24/23 Unknown History omega-3 acid ethyl esters 1 gram 1 cap PO DAILY 06/24/23 06/24/23 Unknown History capsule Exam Airway Mallampati Class: II TM Dist: <=3cm Neck ROM: Full Denture: Upper Heart: ok Lungs: ok Assessment and Plan Assessment Anesthesia Assessment: Anesthesia Plan Discussed Final Anesthetic Review NPO: Yes ASA Class: III Final Preanesthetic Review: No Changes in Pt Med Stat, Meds/Allgs Chart Reviewed, Consent Obtained/Reviewed and Anes Risks/Benef Reviewed Patient Risk: High Procedure Risk: Low Anesthetic Plan Anesthetic Plan: MAC: and Agree w/ Assess. and Plan Disposition: Standard PACU
--- NOTE | 2023-08-01 04:59 | MHC.SHP ---
Pre-Procedural Eval Section A Date of Service: 08/01/23 The patient is an INPATIENT: No Changes since office visit: No Cold of Flu in the past 2 weeks, No New Medical Problems, No Changes in Medication and No Patient answered all questions The History & Physical has been completed within 30 days and I have reviewed it.: Yes Section B Chief Complaint: Localized swelling, mass and lump, left upper limb Allergies: Allergies Allergy/AdvReac Type Severity Reaction Status Date / Time cephalexin Allergy Intermediate facial rash Verified 07/09/23 09:13 celecoxib [Celebrex] Allergy Unknown patient Verified 07/09/23 09:13 unsure what reaction was Plan I have reviewed the history and physical and performed a pertinent physical examination on my patient. No changes have occurred unless specified. Time Spent With Patient Time: Total time managing care of this patient today ____ minutes.
[2023-08-01 06:33] VITALS: BP 145/65; PULSE 59; RESP 16; TEMP 36.1; O2SAT 100
[2023-08-01] MEDS: Lactated Ringers 1,000 ML 100 ML IVCONT (06:42)
[2023-08-01 06:47] LABS: Glucose, Whole Blood 87 mg/dL (60-115)
--- NOTE | 2023-08-01 08:07 | P.OP_ITS ---
Operative Note Operative Note Date of Service: 08/01/23 Narrative: Preoperative diagnosis: [] left proximal forearm mass x2 Postop diagnosis: [] save Procedure [] wide local excision left for mass x2 Surgeon: [] Armando Patient Registration Clerk: [] Type of Anesthesia: [] mass Indication for surgery: [] specimen measured approximately 8 x 4 cm consisting of a recurrent soft tissue mass of the left elbow which have been excised Several years ago as well as the development of a new 1 in the same region. Findings: [] patient brought to the operating room, placed on operative table in supine position, after adequate level of MAC anesthesia was induced, the left forearm and elbow area were prepped and draped in usual sterile fashion. Using a transverse bi- elliptical incision encompassing the previously excised mass with scar as well as the new lesion, final specimen measured approximately 8 x 4 cm. This was carried down through skin, subcutaneous tissue, and undermined using Bovie. Specimen sent to pathology. Wound was irrigated after developing skin flaps, secured hemostasis, and closed using interrupted inverted dermal 3-0 Vicryl sutures followed by Steri-Strips and sterile dressings. Sponge, needle, instrument counts reported correct. Patient tolerated the proc edure well and emerged anesthesia stable condition. Left upper extremity is grossly neurovascularly intact a completion the procedure. EBL minimal
[2023-08-01 08:16] VITALS: BP 144/61; PULSE 60; RESP 16; TEMP 36.4; O2SAT 98
[2023-08-01 08:31] VITALS: BP 166/48; PULSE 54; RESP 16; O2SAT 97
[2023-08-01 08:46] VITALS: BP 163/76; PULSE 54; RESP 16; TEMP 36.1; O2SAT 99
== END 2023-08-01 09:18 | disposition home or self-care (01) ==
PROVIDERS: PCP Internal Medicine; Visit Provider Surgery
PROC: (CPT 24071; principal; 2023-08-01 07:30)
DX: R22.32 Localized swelling, mass and lump, left upper limb (principal); L94.2 Calcinosis cutis; I10 Essential (primary) hypertension; E78.5 Hyperlipidemia, unspecified; E11.9 Type 2 diabetes mellitus without complications; Z79.82 Long term (current) use of aspirin; Z79.84 Long term (current) use of oral hypoglycemic drugs; Z79.899 Other long term (current) drug therapy; Z88.1 Allergy status to other antibiotic agents; Z28.21 Immunization not carried out because of patient refusal; Z98.890 Other specified postprocedural states
CPT/HCPCS: 24071; 82947; 88307; J2795; J3010

== ENCOUNTER → 2023-08-01 05:54 | Outpatient (BNV) | payer MEDICARE, OTHER, SELFPAY | PROVIDERS: PCP Internal Medicine; Visit Provider Surgery | DX: L94.2 Calcinosis cutis (principal) | CPT/HCPCS: 11406 ==

== ENCOUNTER 2023-08-12 08:39 | Outpatient (AMB) | payer MEDICARE, OTHER, SELFPAY ==
[2023-08-12 08:53] VITALS: BP 130/71; PULSE 72
--- NOTE | 2023-08-12 08:53 | MHC.OFFVIS ---
Intake Vital Signs 08/12/23 08:53 Weight 156 lb BP 130/71 Blood Pressure Location Rt brachial Position Sitting Pulse 72 Intake Visit Reasons: S/P WLE Lt. forearm mass Intake Note: Patient here s/p exc on Lt forearm. Reports incision healing well. Denies pain, oozing or itch. No longer taking rx pain meds. [employer] Network Technician Required: No Accompanied by: Self / Same As Patient Allergies cephalexin Allergy (Intermediate, Verified 08/12/23 08:54) facial rash celecoxib [Celebrex] Allergy (Unknown, Verified 08/12/23 08:54) patient unsure what reaction was HPI HPI Comments History of Present Illness Details Patient's follow-up. She has minimal incisional discomfort. She is otherwise doing well. Pathology was reviewed and benign. [facility] Medical History Refused influenza vaccine Pneumococcal vaccination declined COVID-19 vaccine series completed Rotator cuff tear arthropathy of right shoulder Spondylolisthesis of lumbar region Osteopenia of left femoral neck Menopause Generalized anxiety disorder Essential hypertension Dyslipidemia Type 2 diabetes mellitus without complication, without long-term current use of insulin Surgical History Mass of left forearm Hx of varicose vein ligation History of repair of right rotator cuff History of colonoscopy Family History Father CVD (cardiovascular disease) Myocardial infarction Mother History of CVA (cerebrovascular accident) Stroke Brother HTN (hypertension) Hyperlipidemia Diabetes mellitus Brother No problems noted. Son No problems noted. Daughter No problems noted. Social History Housing: House Are you a primary animal caretaker supervisor to a significant other at home: No Do you presently have visiting nurse or other home services: No Patient Tobacco Use Status: Never used Tobacco e-Cigarette/Vaping Use: Never Used Second Hand Smoke Exposure: No service: No Current occupational status: retired Current occupation: [employer] Cognitive needs: No Hearing needs: No Vision needs: Yes Physical Exam Vital Signs: Last Vital Signs Pulse 72 08/12/23 08:53 BP 130/71 08/12/23 08:53 Extrem Other: Left forearm wound is healing uneventfully. Assessment & Plan Assessment & Plan (1) Mass of left forearm: Code(s): R22.32 - Localized swelling, mass and lump, left upper limb Plan Patient has been given local instructions, and will follow-up p.r.n. Coding Level of Care Code Global (89401) Diagnoses Mass of left forearm R22.32
== END 2023-08-12 09:00 | disposition home or self-care (01) ==
PROVIDERS: PCP Internal Medicine; Visit Provider Surgery
DX: R22.32 Localized swelling, mass and lump, left upper limb (principal)
CPT/HCPCS: 99024

== ENCOUNTER → 2023-08-12 08:39 | Outpatient (BNVA) | payer MEDICARE, OTHER, SELFPAY | PROVIDERS: PCP Internal Medicine; Visit Provider Surgery ==

== ENCOUNTER 2023-10-10 08:19 | Outpatient (AMB) | payer MEDICARE, OTHER, SELFPAY ==
--- NOTE | 2023-10-10 08:29 | A.OFFPC_ITS ---
Vital Signs 10/10/23 08:32 Height 5 ft 6 in Weight 155 lb 6 oz BMI 25.1 BP 130/70 Blood Pressure Location Lt brachial Position Sitting Pulse 71 Pulse Source Pulse Oximeter Pulse Oximetry (%) 99 Oxygen Delivery Method Room Air Intake Visit Reasons: left eye cataract surgery Intake Note: Pt is here today for pre-op for left eye cataract surgery on 10/[address] Cuate Garcia (pt only needs A1c no Ekg needed) Allergies cephalexin Allergy (Intermediate, Verified 10/10/23 09:19) facial rash celecoxib [Celebrex] Allergy (Unknown, Verified 10/10/23 09:19) patient unsure what reaction was Medication List - Last Reconciled 10/10/23 by Francia Poole MD acetaminophen 650 mg (2 x 325 mg) PO Q6H PRN 30 days cholecalciferol (vitamin D3) 50 mcg PO DAILY metformin ER 500 mg PO QAM metoprolol succinate ER 100 mg PO DAILY omega-3 acid ethyl esters 1 cap PO DAILY simvastatin 20 mg PO BEDTIME Tobacco use date assessed: 10/10/23 Fall risk assessment: No Falls in past year Last assessed Fall Risk: 10/10/23 Dental Screening Dental Screen Date: 10/10/23 Did you have a dental visit in the last 12 months?: No Did you have a dental problem in the last 6 months where you did not have access to dental care?: No Was dental information given to patient?: No HPI left eye cataract surgery HPI Details 77-year-old lady with diabetes mellitus controlled, dyslipidemia, hypertension, osteopenia in left femoral neck, generalized anxiety disorder, controlled with current medications, here today for preoperative exam for cataract surgery, requested by Dr. Garcia, scheduled for 10/23/2023 for the left eye and 11/13/2023 for the right eye. Patient has been feeling well, currently symptomatic. Diabetes mellitus controlled with latest hemoglobin A1c at 6.3% and blood pressure stable and controlled on current meds. [facility] Medical History Refused influenza vaccine Pneumococcal vaccination declined COVID-19 vaccine series completed Rotator cuff tear arthropathy of right shoulder Spondylolisthesis of lumbar region Osteopenia of left femoral neck Menopause Generalized anxiety disorder Essential hypertension Dyslipidemia Type 2 diabetes mellitus without complication, without long-term current use of insulin Surgical History (Updated 10/10/23 @ 09:27 by Francia Poole MD) Mass of left forearm Hx of varicose vein ligation History of repair of right rotator cuff History of colonoscopy Family History Father CVD (cardiovascular disease) Myocardial infarction Mother History of CVA (cerebrovascular accident) Stroke Brother HTN (hypertension) Hyperlipidemia Diabetes mellitus Brother No problems noted. Son No problems noted. Daughter No problems noted. Social History Housing: House Are you a primary lawn care technician to a significant other at home: No Do you presently have visiting nurse or other home services: No Patient Tobacco Use Status: Never used Tobacco e-Cigarette/Vaping Use: Never Used Second Hand Smoke Exposure: No service: No Current occupational status: retired Current occupation: [employer] Cognitive needs: No Hearing needs: No Vision needs: Yes Questionnaire PHQ-9 Over the last 2 weeks, how often have you been bothered by any of the following problems? Depression Screening Interpretation: Negative Depression Screening Done: Yes Source: Developed by Drs. Blas Mahajan, Wayne Snider and colleagues, with an educational pepe from [employer]. Thrive Questionnaire Date Thrive assessed: 11/26/22 ADELITA-7 AMB Questionnaire ADELITA-7 Date ADELITA - 7 assessed: 11/26/22 Source: Developed by Pat Barrientos Kurt Kroenke and colleagues, with an educational pepe from [employer]. Review of Systems Const Denies excessive sweating and Denies fatigue Eyes Details: has appt with [facility] Reports blurry vision ENT Reports Normal hearing present and Reports nasal trauma Card Denies chest pain at rest, Denies chest pain with activity, Denies rapid heart rate, Denies pedal edema and Denies dyspnea Resp Denies chest congestion, Denies cough and Denies dyspnea GI Denies abdominal pain, Denies belching, Denies melena and Denies bloating Denies hematuria, Denies urinary frequency, Denies difficulty voiding, Denies hot flashes, Denies dysuria, Denies prolapse symptoms, Denies urinary incontinence and Denies vaginal discharge Musc Reports no additional complaints Skin/Breast Reports as per HPI Neuro Reports Normal hearing present, Denies seizure-like activity and Denies Sensory deficit (Neuro) Psych Reports no additional complaints Endo Denies excessive sweating and Denies fatigue [place]/Lymph Reports no additional complaints Aller/Immun Reports no additional complaints Physical exam (Primary Care) Vital Signs: Last Vital Signs Pulse 71 10/10/23 08:32 BP 130/70 10/10/23 08:32 Pulse Ox 99 10/10/23 08:32 Oxygen Delivery Method Room Air 10/10/23 08:32 BMI result Body Mass Index 25.1 Tobacco/Smoking Status: Tobacco use Status Tobacco use date assessed 10/10/23 10/10/23 08:40 Patient Tobacco Use Status Never used Tobacco 10/10/23 08:30 e-Cigarette/Vaping Use Never Used 10/10/23 08:30 Depression Screening Interpretation: Negative Thrive Assessment: Date of Thrive Assessment Date Thrive assessed 11/26/22 10/10/23 08:30 Const General: healthy appearing, comfortable, no acute distress and alert Orientation/consciousness: patient oriented x3 HENMT Other: Normocephalic atraumatic, normal external auditory canal and tympanic membrane. , General nose exam: Normal external nose present and No nasal discharge present Eyes General: appearance normal, both eyes and all related structures Neck Neck: Yes full ROM, Yes no lymphadenopathy and Yes supple Resp Auscultation: clear to auscultation bilaterally Cardio Other: S1-S2 present regular rate and rhythm GI Other: Normal bowel sounds, soft, nontender, no mass palpated Back/Spine/Pelvis Back: No back tenderness Skin General skin exam: no rashes or lesions noted Neuro General: patient oriented x3, gait normal, tone normal, no focal motor deficits, CN's II-XI intact bilaterally and normal sensation to monofilament Cranial nerves: Yes Normal hearing present Sensory Exam: No Sensory deficit (Neuro) Extrem General: Yes normal to inspection, Yes full ROM, Yes no joint enlargement, Yes no pedal edema, Yes no calf tenderness and Yes normal gait Results AMB Hemoglobin A1c AMB Hemoglobin A1c 6.3 % Last Edit by Isis Trinh CMA on 10/10/23 08: 56 Results Reviewed Results Reviewed: Laboratory Last Values Hgb A1c (Clinic) 6.3 % (4.0-6.0) H 10/10/23 08:43 Assessment and Plan Assessment & Plan (1) Preoperative examination: Code(s): Z01.818 - Encounter for other preprocedural examination Plan: Pt is a 77-year-old lady here today for preoperative clearance for cataract surgery under local anesthesia, requested by Dr. Garcia.history of She has no history of cardiac or pulmonary disease. Blood pressure stable controlled on present treatment. Diabetes mellitus is controlled through diet, with latest hemoglobin A1c at 6.3%. She has low cardiac risk index for proposed surgery (2) Refused influenza vaccine: Code(s): Z28.21 - Immunization not carried out because of patient refusal (3) Pneumococcal vaccination declined: Code(s): Z28.21 - Immunization not carried out because of patient refusal (4) Lumbar radiculopathy: Comment: sees Dr Espinoza Code(s): M54.16 - Radiculopathy, lumbar region Plan: Followed by pain clinic (5) Type 2 diabetes mellitus without complication, without long-term current use of insulin: Comment: taking metformin once/day-does not check glucose at home Code(s): E11.9 - Type 2 diabetes mellitus without complications Plan: Recent lab results reviewed with patient, with hemoglobin A1c stable and at goal, and diet controlled. Reinforced diabetic diet and regular exercise with patient. Counseled regarding importance of yearly diabetes retinopathy screening. Patient advised to inspect feet daily, for any signs of injury, callus or infection. Compliance with diet and regular exercise again stressed. Blood pressure goal is less than 130/80, goal LDL is less than 100 and goal hemoglobin A1c is less than 7% (6) Dyslipidemia: Code(s): E78.5 - Hyperlipidemia, unspecified Plan: Continue with [place] 3 fatty acid supplements and simvastatin 20 mg at bedtime. , in addition to adherence to low-cholesterol diet and regular exercise, at least 30 minutes 3 to 4 times a week. Advised patient to make healthy food pleitez kim, eat more fruits, vegetables, whole grains, wild caught fish and low-fat dairy. Limit amount of meat and fried or fatty food products, as well as processed foods and fast foods. Repeat fasting lipids ordered. (7) Essential hypertension: Code(s): I10 - Essential (primary) hypertension Plan: Blood pressure at goal of less than 130/80. Continue with current medication. Reinforced importance of following a low sodium diet, getting regular exercise, and lowering stress levels. (8) Osteopenia of left femoral neck: Code(s): M85.852 - Other specified disorders of bone density and structure, left thigh Plan: Stressed importance of doing regular weight-bearing exercise, and taking adequate calcium from dietary sources and continue taking vitamin-D 3 at least 2000 units daily Orders: Orders AMB Hemoglobin A1c Today E11.9 - Type 2 diabetes mellitus without complications Coding Level of Care Code Est Pt Level 4 (96220) Diagnoses Preoperative examination Z01.818 Refused influenza vaccine Z28.21 Pneumococcal vaccination declined Z28.21 Lumbar radiculopathy M54.16 Type 2 diabetes mellitus without complication, without long-term current use of insulin E11.9 Dyslipidemia E78.5 Essential hypertension I10 Osteopenia of left femoral neck M85.852
[2023-10-10 08:32] VITALS: BP 130/70; PULSE 71; O2SAT 99; BMI 25.1
== END 2023-10-10 10:48 | disposition home or self-care (01) ==
PROVIDERS: PCP Internal Medicine; Visit Provider Internal Medicine
DX: Z01.818 Encounter for other preprocedural examination (principal); Z28.21 Immunization not carried out because of patient refusal; M54.16 Radiculopathy, lumbar region; E11.9 Type 2 diabetes mellitus without complications; E78.5 Hyperlipidemia, unspecified; I10 Essential (primary) hypertension; M85.852 Other specified disorders of bone density and structure, left thigh
CPT/HCPCS: 83036; 99214

== ENCOUNTER 2023-11-05 07:49 | Outpatient (REF) | payer MEDICARE, OTHER, SELFPAY ==
[2023-11-05 11:40] LABS: Estimated Average Glucose 131 mg/dL; Hemoglobin A1c % 6.2 % (<6.0)
[2023-11-05 11:46] LABS: Alanine Aminotransferase 10 U/L (0-31); Anion Gap 13 (12-20); Aspartate Amino Transferase 16 U/L (5-31); Blood Urea Nitrogen 11 mg/dL (9-16); Calcium 9.5 mg/dL (8.4-10.2); Carbon Dioxide 27 mmol/L (22-29); Chloride 105 mmol/L (96-108); Cholesterol 161 mg/dL (<200); Estimated Glomerular Filt Rate > 60; Glucose Fasting 104 mg/dL (60-99); HDL Cholesterol 56 mg/dL (>40); LDL Cholesterol Calculated 86 mg/dL (<100); Potassium 4.2 mmol/L (3.3-5.1); Sodium 141 mmol/L (135-145); Triglycerides 97 mg/dL (<150)
== END 2023-11-05 07:50 | disposition home or self-care (01) ==
LOC: HO.HMGCLDS 07:49
PROVIDERS: PCP Internal Medicine; Visit Provider Internal Medicine
DX: E11.9 Type 2 diabetes mellitus without complications (principal); I10 Essential (primary) hypertension; E78.5 Hyperlipidemia, unspecified
CPT/HCPCS: 36415; 80048; 80061; 83036; 84450; 84460

== ENCOUNTER 2023-11-08 10:09 | Outpatient (AMB) | payer MEDICARE, OTHER, SELFPAY ==
[2023-11-08 11:06] VITALS: BP 130/80; PULSE 70; O2SAT 97; BMI 24.9
--- NOTE | 2023-11-08 11:06 | MHC.PC.OV ---
Vital Signs 11/08/23 11:06 Height 5 ft 6 in Weight 154 lb BMI 24.9 BP 130/80 Blood Pressure Location Rt brachial Position Sitting Pulse 70 Pulse Source Pulse Oximeter Pulse Oximetry (%) 97 Oxygen Delivery Method Room Air Intake Visit Reasons: took a fall x2wks ago Lt shoulder pain Intake Note: Pt is here today c/o Lt side of rib pain due to a fall 2wks ago at home Allergies cephalexin Allergy (Intermediate, Verified 11/08/23 11:38) facial rash celecoxib [Celebrex] Allergy (Unknown, Verified 11/08/23 11:38) patient unsure what reaction was Medication List - Last Reconciled 11/08/23 by Francia Poole MD acetaminophen 650 mg (2 x 325 mg) PO Q6H PRN 30 days cholecalciferol (vitamin D3) 50 mcg PO DAILY metformin ER 500 mg PO QAM metoprolol succinate ER 100 mg PO DAILY omega-3 acid ethyl esters 1 cap PO DAILY simvastatin 20 mg PO BEDTIME Tobacco use date assessed: 11/08/23 Fall risk assessment: 1 Fall in past year Last assessed Fall Risk: 11/08/23 Dental Screening Dental Screen Date: 11/08/23 Did you have a dental visit in the last 12 months?: No Was dental information given to patient?: No HPI took a fall x2wks ago Lt shoulder pain HPI Details 77-year-old lady here today for follow-up after recent fall, slipped and fell backwards on the ground 10/27/2023, able to get up but was complaining of pain and anterior chest, worse with deep breathing or sneezing or coughing. Patient went to an urgent care in [place] 10/28/2023, was told that it was just a bruised rib, no x-ray done, advised to take Tylenol as needed for pain. Patient has been taking Tylenol which has not afforded any improvement, pain unchanged She has diabetes mellitus, dyslipidemia and is here also for follow-up on her recent labs results.. [facility] Medical History Refused influenza vaccine Pneumococcal vaccination declined COVID-19 vaccine series completed Rotator cuff tear arthropathy of right shoulder Spondylolisthesis of lumbar region Osteopenia of left femoral neck Menopause Generalized anxiety disorder Essential hypertension Dyslipidemia Type 2 diabetes mellitus without complication, without long-term current use of insulin Surgical History Mass of left forearm Hx of varicose vein ligation History of repair of right rotator cuff History of colonoscopy Family History Father CVD (cardiovascular disease) Myocardial infarction Mother History of CVA (cerebrovascular accident) Stroke Brother HTN (hypertension) Hyperlipidemia Diabetes mellitus Brother No problems noted. Son No problems noted. Daughter No problems noted. Social History Housing: House Are you a primary neurocritical care physician to a significant other at home: No Do you presently have visiting nurse or other home services: No Patient Tobacco Use Status: Never used Tobacco e-Cigarette/Vaping Use: Never Used Second Hand Smoke Exposure: No service: No Current occupational status: retired Current occupation: [employer] Cognitive needs: No Hearing needs: No Vision needs: Yes Questionnaire Thrive Questionnaire Date Thrive assessed: 11/26/22 ADELITA-7 AMB Questionnaire ADELITA-7 Date ADELITA - 7 assessed: 11/26/22 Source: Developed by Drs. Blas Mahajan, Pat Pleitez, Wayne Fisher and colleagues, with an educational pepe from [employer]. Review of Systems Const All systems reviewed & are unremarkable except as noted in HPI and below Physical exam (Primary Care) Vital Signs: Last Vital Signs Pulse 70 11/08/23 11:06 BP 130/80 11/08/23 11:06 Pulse Ox 97 11/08/23 11:06 Oxygen Delivery Method Room Air 11/08/23 11:06 BMI result Body Mass Index 24.9 Tobacco/Smoking Status: Tobacco use Status Tobacco use date assessed 11/08/23 11/08/23 11:08 Patient Tobacco Use Status Never used Tobacco 11/08/23 11:08 e-Cigarette/Vaping Use Never Used 11/08/23 11:08 Thrive Assessment: Date of Thrive Assessment Date Thrive assessed 11/26/22 11/08/23 11:08 Const Other: Alert oriented x3, no acute cardiorespiratory distress noted ambulatory normal gait Orientation/consciousness: patient oriented x3 HENMT Head: Yes normocephalic Ears: hearing grossly normal bilaterally and external ears normal General nose exam: Normal external nose present Face and sinus: Yes face symmetric Mouth: Normal oral and palatal mucosa present, oropharynx normal and moist mucous membranes Neck Neck: Yes full ROM, Yes no lymphadenopathy and Yes supple Chest Chest palpation & inspection: normal inspection of the chest, abnormal inspection of the chest (Tenderness on palpation of right 4th to 5th anterior rib) and no crepitus Resp Auscultation: clear to auscultation bilaterally and no rubs tactile fremitus present: tactile fremitus absent Cardio Other: S1-S2 present regular rate and rhythm Skin Other: No ecchymosis or any skin breakage noted Neuro General: patient oriented x3, gait normal, tone normal, moves all extremities and no focal motor deficits Extrem Other: General: Yes full ROM, Yes no joint enlargement, Yes no clubbing, cyanosis or edema and Yes normal gait Results Reviewed Results Reviewed: Laboratory Tests 07/30/22 10/10/23 11/05/23 07:49 08:43 07:52 WBC 6.0 Hgb 12.5 Hct 40.2 Plt Count 329 D Hgb A1c (Clinic) 6.3 H Hemoglobin A1c % 6.2 H Name: Izzy Gambino Age/Sex: 77/F : 1945 Unit#: [id number] Attend Dr: Francia Poole MD Re11/05/23 Status: DEP REF Location: [facility] Disch: SPEC : [id number] JONY: 11/05/23 STATUS: COMP REQ : [id number] RECD: 11/05/23-[address]: Francia Poole MD COMP: 11/05/231146 ENTERED: 11/05/[address]: ORDERED: Met Prof Fast, AST, ALT, Lipid Panel Test Result Flag Reference Site Sodium 141 135-145 mmol/L Potassium 4.2 3.3-5.1 mmol/L CL 105 96-108 mmol/L CO2 27 22-29 mmol/L Gap 13 12-20 BUN 11 9-16 mg/dL Creat 0.79 0.5-1.4 mg/dL EGFR > 60 NOTE: For -[place] individuals, multiply the result by 1.210. Chronic Kidney Disease: Estimated GFR < 60 mL/min/1.73m2 Severe Kidney Disease: Estimated GFR < 15 mL/min/1.73m2 FBS 104 H 60-99 mg/dL A fasting glucose from 100-125 mg/dl is considered impaired (pre-diabetes). CA 9.5 8.4-10.2 mg/dL AST (GOT) 16 5-31 U/L ALT (GPT) 10 0-31 U/L Triglyceride 97 <150 mg/dL Desirable Triglyceride: less than 150 mg/dL Borderline High Triglyceride 150-199 mg/dL High Triglyceride: 200-499 mg/dL Very High Triglyceride: greater than or equal to 5OO mg/dL Cholesterol 161 <200 mg/dL Desirable Cholesterol: less than 200 mg/dL Borderline High Cholesterol: 200-239 mg/dL High Cholesterol: greater than 239 mg/dL LDL Calculated 86 <100 mg/dL Desirable LDL: less than 100 mg/dL Near Optimal/Above Optimal LDL: 110-129 mg/dL Borderline High LDL: 130-159 mg/dL High LDL: 160-189 mg/dL Very High LDL: greater than or equal to 190 mg/dL HDL 56 >40 mg/dL Desirable HDL: greater than 40 mg/dL Note: This HDL assay may give artificially low results in patients with liver disease. END OF REPORT Assessment and Plan Assessment & Plan (1) Acute chest wall pain: Code(s): R07.89 - Other chest pain Plan: Ordered X rib x-ray which chest (2) History of recent fall: Code(s): Z91.81 - History of falling Plan: Likely contusion injury, ordered rib x-ray with chest. Advised to continue taking Tylenol may alternate with ibuprofen every 8 hours as needed and apply Salonpas patch with lidocaine to affected area twice a day as needed. (3) Type 2 diabetes mellitus without complication, without long-term current use of insulin: Comment: taking metformin once/day-does not check glucose at home Code(s): E11.9 - Type 2 diabetes mellitus without complications Plan: Recent lab results reviewed with patient, with sugar and hemoglobin A1c stable and at goal. Continue with metformin continue to check fasting blood sugar at home, maintain log and bring to next appointment for review. Reinforced diabetic diet and regular exercise with patient. Counseled regarding importance of yearly diabetes retinopathy screening. Patient advised to inspect feet daily, for any signs of injury, callus or infection. Compliance with diet and regular exercise again stressed. Blood pressure goal is less than 130/80, goal LDL is less than 100 and goal hemoglobin A1c is less than 7% follow-up appointment made in-for--months, after fasting labs done. (4) Essential hypertension: Code(s): I10 - Essential (primary) hypertension Plan: Blood pressure at goal of less than 130/80. Continue with current medication. Reinforced importance of following a low sodium diet, getting regular exercise, and lowering stress levels. (5) Dyslipidemia: Code(s): E78.5 - Hyperlipidemia, unspecified Plan: Reviewed recent fasting lipid profile with patient with levels within normal . Continue with simvastatin 20 mg at bedtime , in addition to adherence to low-cholesterol diet and regular exercise, at least 30 minutes 3 to 4 times a week. Advised patient to make healthy food choices, eat more fruits, vegetables, whole grains, wild caught fish and low-fat dairy. Limit amount of meat and fried or fatty food products, as well as processed foods and fast foods. Follow-up scheduled with repeat fasting lipid panel in 4 months. Coding Level of Care Code Est Pt Level 3 (63310) Diagnoses Acute chest wall pain R07.89 History of recent fall Z91.81 Type 2 diabetes mellitus without complication, without long-term current use of insulin E11.9 Essential hypertension I10 Dyslipidemia E78.5
== END 2023-11-08 11:50 | disposition home or self-care (01) ==
PROVIDERS: PCP Internal Medicine; Visit Provider Internal Medicine
DX: R07.89 Other chest pain (principal); Z91.81 History of falling; E11.9 Type 2 diabetes mellitus without complications; I10 Essential (primary) hypertension; E78.5 Hyperlipidemia, unspecified
CPT/HCPCS: 99213

== ENCOUNTER 2023-11-08 11:51 | Outpatient (REF) | payer MEDICARE, OTHER, SELFPAY ==
--- NOTE | ~2023-11-08 | XR_ITS ---
EXAMINATION: XR RIBS, BILATERAL CLINICAL INFORMATION: Chest pain COMPARISON: None available. TECHNIQUE: PA chest and 3 views of the bilateral ribs were obtained. FINDINGS: Heart and mediastinum within normal limits. No vascular congestion, consolidations or effusions. No pneumothorax. Mild thoracolumbar scoliosis and degenerative changes. Right total shoulder replacement. No rib fractures. XR/XR ribs BI min 4V w CXR1V IMPRESSION: No acute cardiopulmonary disease or acute bony pathology.
== END 2023-11-08 11:52 | disposition home or self-care (01) ==
LOC: HO.HMGCX 11:51
PROVIDERS: PCP Internal Medicine; Visit Provider Internal Medicine
DX: R07.89 Other chest pain (principal)
CPT/HCPCS: 71111

== ENCOUNTER 2024-01-24 11:45 | Outpatient (REF) | payer MEDICARE, OTHER, SELFPAY | END 2024-01-24 11:46 | disposition home or self-care (01) | LOC: HO.MAMMO 11:45 | PROVIDERS: PCP Internal Medicine; Visit Provider Internal Medicine | DX: Z12.31 Encounter for screening mammogram for malignant neoplasm of breast (principal) | CPT/HCPCS: 77063; 77067 ==

== ENCOUNTER → 2024-01-24 12:15 | Outpatient (BNV) | payer MEDICARE, OTHER, SELFPAY | PROVIDERS: PCP Internal Medicine; Visit Provider Radiology Diagnostic Radiology | DX: Z12.31 Encounter for screening mammogram for malignant neoplasm of breast (principal) | CPT/HCPCS: 77063; 77067 ==

== ENCOUNTER 2024-03-02 08:47 | Outpatient (REF) | payer MEDICARE, OTHER, SELFPAY ==
[2024-03-02 10:38] LABS: Estimated Average Glucose 140 mg/dL; Hemoglobin A1c % 6.5 % (<6.0)
[2024-03-02 10:55] LABS: Alanine Aminotransferase 13 U/L (0-31); Anion Gap 9 (12-20); Aspartate Amino Transferase 18 U/L (5-31); Blood Urea Nitrogen 18 mg/dL (9-16); Calcium 9.7 mg/dL (8.4-10.2); Carbon Dioxide 28 mmol/L (22-29); Chloride 106 mmol/L (96-108); Cholesterol 171 mg/dL (<200); Estimated Glomerular Filt Rate > 60; Glucose Fasting 117 mg/dL (60-99); HDL Cholesterol 61 mg/dL (>40); LDL Cholesterol Calculated 93 mg/dL (<100); Potassium 4.3 mmol/L (3.3-5.1); Sodium 139 mmol/L (135-145); Triglycerides 89 mg/dL (<150)
[2024-03-02 11:14] LABS: Vitamin D 25-OH Total 76.6 ng/mL (>30)
== END 2024-03-02 08:48 | disposition home or self-care (01) ==
LOC: HO.HMGCLDS 08:47
PROVIDERS: PCP Internal Medicine; Visit Provider Internal Medicine
DX: E11.9 Type 2 diabetes mellitus without complications (principal); M85.852 Other specified disorders of bone density and structure, left thigh; I10 Essential (primary) hypertension; E78.5 Hyperlipidemia, unspecified; Z78.0 Asymptomatic menopausal state
CPT/HCPCS: 36415; 80048; 80061; 82306; 83036; 84450; 84460

== ENCOUNTER 2024-03-04 11:07 | Outpatient (AMB) | payer MEDICARE, OTHER, SELFPAY ==
[2024-03-04 11:45] VITALS: BP 142/60; PULSE 64; O2SAT 96; BMI 26.0
--- NOTE | 2024-03-04 11:45 | MHC.PC.OV ---
Vital Signs 03/04/24 11:45 03/04/24 12:21 Height 5 ft 6 in Weight 161 lb BMI 26.0 BP 142/60 H 130/70 Blood Pressure Location Lt brachial Rt brachial Position Sitting Sitting Pulse 64 Pulse Source Pulse Oximeter Pulse Oximetry (%) 96 Oxygen Delivery Method Room Air Intake Visit Reasons: f/u DM, lipids Intake Note: Pt is here today for her f/u DM and lipids Allergies cephalexin Allergy (Intermediate, Verified 03/04/24 12:11) facial rash celecoxib [Celebrex] Allergy (Unknown, Verified 03/04/24 12:11) patient unsure what reaction was Medication List - Last Reconciled 03/04/24 by Francia Poole MD acetaminophen 650 mg (2 x 325 mg) PO Q6H PRN 30 days cholecalciferol (vitamin D3) 50 mcg PO DAILY metformin ER 500 mg PO QAM metoprolol succinate ER 100 mg PO DAILY omega-3 acid ethyl esters 1 cap PO DAILY simvastatin 20 mg PO BEDTIME Tobacco use date assessed: 03/04/24 Fall risk assessment: 1 Fall in past year Last assessed Fall Risk: 03/04/24 Dental Screening Dental Screen Date: 03/04/24 Did you have a dental visit in the last 12 months?: No Was dental information given to patient?: Patient declined HPI f/u DM, lipids HPI Details 78-year-old lady, here today for follow-up on her diabetes mellitus and hyperlipidemia. She has been taking metformin ER 500 mg in the morning, with latest hemoglobin A1c at 6.5%, higher than last check. Admits to being off her diet is past 3 months, but has been started being more active now that she has her granddaughter living with her. She is up-to-date with her diabetes ice-cream, goes yearly.. Has hyperlipidemia, currently on simvastatin 20 mg at bedtime and [place] 3 fatty acid supplements. Takes metoprolol succinate ER for her hypertension. She has been feeling well except has been noticing that she tires easily. Previous exercise used to be walking her dog but now that she has her granddaughter live with her she has been more active and states that her exercise stamina is not the same as it was before, tires easily. [facility] Medical History Refused influenza vaccine Pneumococcal vaccination declined COVID-19 vaccine series completed Rotator cuff tear arthropathy of right shoulder Spondylolisthesis of lumbar region Osteopenia of left femoral neck Menopause Generalized anxiety disorder Essential hypertension Dyslipidemia Type 2 diabetes mellitus without complication, without long-term current use of insulin Surgical History Mass of left forearm Hx of varicose vein ligation History of repair of right rotator cuff History of colonoscopy Family History Father CVD (cardiovascular disease) Myocardial infarction Mother History of CVA (cerebrovascular accident) Stroke Brother HTN (hypertension) Hyperlipidemia Diabetes mellitus Brother No problems noted. Son No problems noted. Daughter No problems noted. Social History Housing: House Are you a primary career guidance counselor to a significant other at home: No Do you presently have visiting nurse or other home services: No Patient Tobacco Use Status: Never used Tobacco e-Cigarette/Vaping Use: Never Used Second Hand Smoke Exposure: No service: No Current occupational status: retired Current occupation: [employer] Cognitive needs: No Hearing needs: No Vision needs: Yes Questionnaire PHQ-9 Over the last 2 weeks, how often have you been bothered by any of the following problems? 1. Little interest or pleasure in doing things: not at all 2. Feeling down, depressed, or hopeless: not at all 3. Trouble falling or staying asleep, or sleeping too much: not at all 4. Feeling tired or having little energy: not at all 5. Poor appetite or overeating: not at all 6. Feeling bad about yourself - or that you are a failure or have let yourself or your family down: not at all 7. Trouble concentrating on things, such as reading the newspaper or watching television: not at all 8. Moving or speaking so slowly that other people could have noticed. Or the opposite - being so fidgety or restless that you have been moving around a lot more than usual: not at all 9. Thoughts that you would be better off or of hurting yourself in some way: not at all Total score: 0 Depression Screening Interpretation: Negative Depression Screening Done: Yes 44194 - PHQ-9 Billing: Yes Source: Developed by Drs. Blas Mahajan, Pat Pleitez, Wayne Fisher and colleagues, with an educational pepe from [employer]. Thrive Questionnaire Date Thrive assessed: 03/04/24 I am a: Patient What is your living situation today?: I have a steady place to live Within the past 12 months, did the food you bought not last and you didn't have the money to get more?: Never true Within the past 12 months, did you worry whether your food would run out before you got money to buy more?: Never true Do you have trouble paying for medicines?: No Do you have trouble getting transportation to medical appointments?: No Do you have trouble paying your heating and electricity bill?: No Do you have trouble taking care of your child, family member or friend?: No Do you have trouble with day-to-day activities such as bathing, preparing meals, shopping, managing finances, etc.?: No Are you currently unemployed and looking for a job?: No Are you interested in more education?: No THRIVE Score: 0 AUDIT C Alcohol Use Questionnaire (AUDIT-C) 1. How often do you have a drink containing alcohol?: Never Total Score: 0 ADELITA-7 AMB Questionnaire ADELITA-7 Date ADELITA - 7 assessed: 03/04/24 Feeling nervous, anxious, or on edge: 0 = Not at all Not being able to stop or control worryin = Not at all Worrying too much about different things: 0 = Not at all Trouble relaxin = Not at all Being so restless that it is hard to sit still: 0 = Not at all Becoming easily annoyed or irritable: 0 = Not at all Feeling afraid as if something awful might happen: 0 = Not at all Total ADELITA-7 score (0-4 normal; 5-9 mild; 10-14 moderate; 15-21 severe): 0 Source: Developed by Drs. Blas Mahajan, Pat Pleitez, Wayne Fisher and colleagues, with an educational pepe from [employer]. ADELITA-7 Assessment Billing ADELITA-7 Assessment Tool: ADELITA-7 Assessment 89779 Review of Systems Const Reports as per HPI and Reports no additional complaints Eyes Details: has appt with w[facility] ENT Reports no additional complaints Card Denies chest pain at rest, Denies chest pain with activity, Denies rapid heart rate, Denies pedal edema and Denies dyspnea Resp Denies chest congestion, Denies cough and Denies dyspnea GI Denies abdominal pain, Denies belching and Denies melena Denies hematuria, Denies urinary frequency, Denies difficulty voiding, Denies hot flashes, Denies dysuria and Denies urinary incontinence Musc Reports no additional complaints Neuro Denies seizure-like activity and Denies Sensory deficit (Neuro) Psych Reports no additional complaints Endo Reports no additional complaints [place]/Lymph Reports no additional complaints Aller/Immun Reports no additional complaints Physical exam (Primary Care) Vital Signs: Last Vital Signs Pulse 64 03/04/24 11:45 BP 130/70 03/04/24 12:21 Pulse Ox 96 03/04/24 11:45 Oxygen Delivery Method Room Air 03/04/24 11:45 BMI result Body Mass Index 26.0 Tobacco/Smoking Status: Tobacco use Status Tobacco use date assessed 03/04/24 03/04/24 11:47 Patient Tobacco Use Status Never used Tobacco 03/04/24 11:47 e-Cigarette/Vaping Use Never Used 03/04/24 11:47 PHQ-9: PHQ-9 Score PHQ-9: Total score 0 03/04/24 12:23 Depression Screening Interpretation: Negative Thrive Assessment: Date of Thrive Assessment Date Thrive assessed 03/04/24 03/04/24 11:50 Const Other: Alert oriented x3, no acute cardiorespiratory distress noted ambulatory normal gait Orientation/consciousness: patient oriented x3 [facility] Head: Yes normocephalic Ears: external ears normal General nose exam: Normal external nose present Face and sinus: Yes face symmetric Mouth: Normal oral and palatal mucosa present, oropharynx normal and moist mucous membranes Eyes General: appearance normal, both eyes and all related structures Neck Neck: Yes full ROM, Yes no lymphadenopathy and Yes supple Resp Auscultation: clear to auscultation bilaterally Cardio Other: S1-S2 present regular rate and rhythm GI Palpation (GI): Soft to palpation, nontender, no guarding and no masses Auscultation: normal bowel sounds General: Yes no CVA tenderness Back/Spine/Pelvis Back: no CVA tenderness and No back tenderness Neuro General: patient oriented x3, gait normal, tone normal, moves all extremities and no focal motor deficits Sensory Exam: No Sensory deficit (Neuro) Extrem Other: General: Yes full ROM, Yes no joint enlargement, Yes no clubbing, cyanosis or edema and Yes normal gait Results Reviewed Results Reviewed: Laboratory Tests 03/02/24 08:57 Estimat Average Glucose 140 Hemoglobin A1c % 6.5 H Name: Izzy Gambino Age/Sex: 78/F : 1945 Unit#: [id number] Attend Dr: Francia Poole MD Re03/02/24 Status: DEP [facility] Disch: SPEC : [id number] JONY: 03/02/24 STATUS: COMP REQ : [id number] RECD: 03/02/24-[address]: Francia Poole MD COMP: 03/02/24 ENTERED: 03/02/[address]: ORDERED: Met Prof Fast, AST, ALT, Lipid Panel, Vitamin D 25-OH Test Result Flag Reference Sodium 139 135-145 mmol/L Potassium 4.3 3.3-5.1 mmol/L CL 106 96-108 mmol/L CO2 28 22-29 mmol/L Gap 9 L 12-20 BUN 18 H 9-16 mg/dL Creat 0.72 0.5-1.4 mg/dL EGFR > 60 NOTE: For -Citizen [place] individuals, multiply the result by 1.210. Chronic Kidney Disease: Estimated GFR < 60 mL/min/1.73m2 Severe Kidney Disease: Estimated GFR < 15 mL/min/1.73m2 FBS 117 H 60-99 mg/dL A fasting glucose from 100-125 mg/dl is considered impaired (pre-diabetes). CA 9.7 8.4-10.2 mg/dL AST (GOT) 18 5-31 U/L ALT (GPT) 13 0-31 U/L Triglyceride 89 <150 mg/dL Desirable Triglyceride: less than 150 mg/dL Borderline High Triglyceride 150-199 mg/dL High Triglyceride: 200-499 mg/dL Very High Triglyceride: greater than or equal to 5OO mg/dL Cholesterol 171 <200 mg/dL Desirable Cholesterol: less than 200 mg/dL Borderline High Cholesterol: 200-239 mg/dL High Cholesterol: greater than 239 mg/dL LDL Calculated 93 <100 mg/dL Desirable LDL: less than 100 mg/dL Near Optimal/Above Optimal LDL: 110-129 mg/dL Borderline High LDL: 130-159 mg/dL High LDL: 160-189 mg/dL Very High LDL: greater than or equal to 190 mg/dL HDL 61 >40 mg/dL Desirable HDL: greater than 40 mg/dL Note: This HDL assay may give artificially low results in patients with liver disease. Vit D 25-OH Tot 76.6 >30 ng/mL Health Based Reference Values* < 20 ng/mL Deficient 20-30 ng/mL Insufficient > 30 ng/mL Sufficient Assessment and Plan Assessment & Plan (1) Fatigue: Code(s): R53.83 - Other fatigue Qualifiers: Fatigue type: unspecified Qualified Code(s): R53.83 - Other fatigue Plan: Will check CBC, vitamin B12 and folate level, as well as TSH and free T4. Vitamin-D is within normal limits (2) Type 2 diabetes mellitus without complication, without long-term current use of insulin: Comment: taking metformin once/day-does not check glucose at home Code(s): E11.9 - Type 2 diabetes mellitus without complications Plan: Recent lab results reviewed with patient, with sugar and hemoglobin A1c stable and at goal , but higher than last check. Continue with metformin ER 500 mg once a day, continue to check fasting blood sugar at home, maintain log and bring to next appointment for review. Reinforced diabetic diet and regular exercise with patient. Up-to-date with her yearly diabetes retinopathy screening. Patient advised to inspect feet daily, for any signs of injury, callus or infection. Compliance with diet and regular exercise again stressed. Blood pressure goal is less than 130/80, goal LDL is less than 100 and goal hemoglobin A1c is less than 7%. follow-up appointment made in-July 2024 after fasting labs done (3) Dyslipidemia: Code(s): E78.5 - Hyperlipidemia, unspecified Plan: Reviewed recent fasting lipid profile with patient with levels within normal limits . Continue simvastatin , in addition to adherence to low-cholesterol diet and regular exercise, at least 30 minutes 3 to 4 times a week. Advised patient to make healthy food choices, eat more fruits, vegetables, whole grains, wild caught fish and low-fat dairy. Limit amount of meat and fried or fatty food products, as well as processed foods and fast foods. Follow-up scheduled with repeat fasting lipid panel in 5 months (4) Essential hypertension: Code(s): I10 - Essential (primary) hypertension Plan: Blood pressure at goal of less than 130/80. Continue with current medication. Reinforced importance of following a low sodium diet, getting regular exercise, and lowering stress levels. Orders: Orders Complete Blood Count Auto Diff 03/04/24 R53.83 - Other fatigue Alanine Aminotransferase 07/12/24 E11.9 - Type 2 diabetes mellitus without complications, E78.5 - Hyperlipidemia, unspecified, I10 - Essential (primary) hypertension Hemoglobin A1c 07/12/24 E11.9 - Type 2 diabetes mellitus without complications, E78.5 - Hyperlipidemia, unspecified, I10 - Essential (primary) hypertension Lipid Panel 07/12/24 E11.9 - Type 2 diabetes mellitus without complications, E78.5 - Hyperlipidemia, unspecified, I10 - Essential (primary) hypertension Basic Metabolic Panel Fasting 07/12/24 E11.9 - Type 2 diabetes mellitus without complications, E78.5 - Hyperlipidemia, unspecified, I10 - Essential (primary) hypertension Microalbumin, Random (w Creat) 07/12/24 E11.9 - Type 2 diabetes mellitus without complications, E78.5 - Hyperlipidemia, unspecified, I10 - Essential (primary) hypertension Vitamin B12 and Folate 03/04/24 R53.83 - Other fatigue TSH reflex Free T4 03/04/24 R53.83 - Other fatigue Aspartate Amino Transferase 07/12/24 E11.9 - Type 2 diabetes mellitus without complications, E78.5 - Hyperlipidemia, unspecified, I10 - Essential (primary) hypertension Coding Level of Care Code Est Pt Level 4 (50395) Diagnoses Fatigue, unspecified type R53.83 Fatigue type: unspecified Type 2 diabetes mellitus without complication, without long-term current use of insulin E11.9 Dyslipidemia E78.5 Essential hypertension I10 Additional Codes ADELITA-7 Assessment Billing - ADELITA-7 Assessment Tool: ADELITA-7 Assessment 79181 ([id number])
[2024-03-04 12:21] VITALS: BP 130/70
== END 2024-03-04 12:28 | disposition home or self-care (01) ==
PROVIDERS: PCP Internal Medicine; Visit Provider Internal Medicine
DX: R53.83 Other fatigue (principal); E11.9 Type 2 diabetes mellitus without complications; E78.5 Hyperlipidemia, unspecified; I10 Essential (primary) hypertension
CPT/HCPCS: 99214

== ENCOUNTER 2024-03-05 08:46 | Outpatient (REF) | payer MEDICARE, OTHER, SELFPAY ==
[2024-03-05 10:23] LABS: MANUAL DIFF FLAG NO
[2024-03-05 10:47] LABS: Basophils Percent Auto 0.5 % (0-2); Eosinophils Absolute Auto 0.4 X10*3/uL (0.0-0.4); Eosinophils Percent Auto 6.9 % (0-4); Hemoglobin 13.1 g/dl (12.0-16.0); Imm Gran Abs Auto 0.04 X10*3/uL (0.00-0.03); Imm Gran Pct Auto 0.6 % (0.0-0.4); Lymphocytes Absolute Auto 1.4 X10*3/uL (1.2-4.9); Lymphocytes Percent Auto 21.6 % (20-40); Mean Corpuscular HGB Conc 32.8 g/dl (31.0-35.0); Mean Corpuscular Hemoglobin 27.5 pg (27.0-33.0); Mean Platelet Volume 10.1 fL (9.4-12.3); Monocytes Absolute Auto 0.7 X10*3/uL (0.1-1.2); Monocytes Percent Auto 10.9 % (2-11); Neutrophils Absolute Auto 3.7 x10*3/uL (2.0-8.3); Neutrophils Percent Auto 59.5 % (45-73); Platelet Count 299 X10*3/uL (160-400); Red Blood Count 4.76 X10*6/uL (4.20-5.50); Red Cell Distribution Width 14.4 % (11.0-16.0); White Blood Count 6.3 X10*3/uL (4.8-10.8)
[2024-03-05 11:19] LABS: TSH reflex Free T4 1.18 uIU/mL (0.32-4.0)
[2024-03-05 13:26] LABS: Folate 8.2 ng/mL (> or = 4.0)
[2024-03-05 21:16] LABS: Vitamin B12 521 pg/mL (200-900)
== END 2024-03-05 08:47 | disposition home or self-care (01) ==
LOC: HO.HMGCLDS 08:46
PROVIDERS: PCP Internal Medicine; Visit Provider Internal Medicine
DX: R53.83 Other fatigue (principal)
CPT/HCPCS: 36415; 82607; 82746; 84443; 85025

== ENCOUNTER 2024-07-17 08:48 | Outpatient (REF) | payer MEDICARE, OTHER, SELFPAY ==
[2024-07-17 10:55] LABS: Alanine Aminotransferase 13 U/L (0-31); Anion Gap 13 (12-20); Aspartate Amino Transferase 17 U/L (5-31); Blood Urea Nitrogen 15 mg/dL (9-16); Calcium 9.9 mg/dL (8.4-10.2); Carbon Dioxide 26 mmol/L (22-29); Chloride 106 mmol/L (96-108); Cholesterol 179 mg/dL (<200); Estimated Glomerular Filt Rate > 60; Glucose Fasting 106 mg/dL (60-99); HDL Cholesterol 58 mg/dL (>40); LDL Cholesterol Calculated 101 mg/dL (<100); Potassium 4.2 mmol/L (3.3-5.1); Sodium 141 mmol/L (135-145); Triglycerides 104 mg/dL (<150)
[2024-07-17 10:56] LABS: Estimated Average Glucose 143 mg/dL; Hemoglobin A1c % 6.6 % (<6.0)
[2024-07-17 11:04] LABS: Creatinine Urine 96.58 mg/dL; Microalbum/Creatinine Ratio Ur 8.2 ug/mg cr (<30)
== END 2024-07-17 08:49 | disposition home or self-care (01) ==
LOC: HO.HMGCLDS 08:48
PROVIDERS: PCP Internal Medicine; Visit Provider Internal Medicine
DX: E11.9 Type 2 diabetes mellitus without complications (principal); I10 Essential (primary) hypertension; E78.5 Hyperlipidemia, unspecified
CPT/HCPCS: 36415; 80048; 80061; 82043; 82570; 83036; 84450; 84460

== ENCOUNTER 2024-07-20 09:06 | Outpatient (AMB) | payer MEDICARE, OTHER, SELFPAY ==
[2024-07-20 09:19] VITALS: BP 130/78; PULSE 63; O2SAT 98; BMI 26.2
--- NOTE | 2024-07-20 09:19 | MHC.PC.OV ---
Vital Signs 07/20/24 09:19 Height 5 ft 6 in Weight 162 lb 4 oz BMI 26.2 BP 130/78 Blood Pressure Location Lt brachial Position Sitting Pulse 63 Pulse Source Pulse Oximeter Pulse Oximetry (%) 98 Oxygen Delivery Method Room Air Intake Visit Reasons: F/U DM HTN lipids Allergies cephalexin Allergy (Intermediate, Verified 07/20/24 09:35) facial rash celecoxib [Celebrex] Allergy (Unknown, Verified 07/20/24 09:35) patient unsure what reaction was Medication List - Last Reconciled 07/20/24 by Francia Poole MD acetaminophen 650 mg (2 x 325 mg) PO Q6H PRN 30 days cholecalciferol (vitamin D3) 50 mcg PO DAILY metformin ER 500 mg PO QAM metoprolol succinate ER 100 mg PO DAILY omega-3 acid ethyl esters 1 cap PO DAILY simvastatin 20 mg PO BEDTIME Tobacco use date assessed: 07/20/24 Fall risk assessment: No Falls in past year Last assessed Fall Risk: 07/20/24 Dental Screening Dental Screen Date: 07/20/24 Did you have a dental visit in the last 12 months?: Yes Did you have a dental problem in the last 6 months where you did not have access to dental care?: No Was dental information given to patient?: Patient has dentist HPI F/U DM HTN lipids HPI Details 78-year-old lady with diabetes mellitus, and hyperlipidemia , presenting today for follow-up. She is currently taking metformin ER 500 mg in the morning and takes simvastatin 20 mg at bedtime. As well as [place] 3 fatty acid supplements 1 capsule daily. She had recent fasting labs done which showed good control of her diabetes with a hemoglobin A1c of 6.6%, no urine microalbuminuria, normal fasting lipids and liver enzymes and renal function.. She has been feeling well, with no complaints at present time. PENDING SALE TO [facility] Medical History (Updated 07/20/24 @ 09:52 by Francia Poole MD) Refused influenza vaccine COVID-19 vaccine series completed Rotator cuff tear arthropathy of right shoulder Spondylolisthesis of lumbar region Osteopenia of left femoral neck Menopause Generalized anxiety disorder Essential hypertension Dyslipidemia Type 2 diabetes mellitus without complication, without long-term current use of insulin Surgical History Mass of left forearm Hx of varicose vein ligation History of repair of right rotator cuff History of colonoscopy Family History Father CVD (cardiovascular disease) Myocardial infarction Mother History of CVA (cerebrovascular accident) Stroke Brother HTN (hypertension) Hyperlipidemia Diabetes mellitus Brother No problems noted. Son No problems noted. Daughter No problems noted. Social History Housing: House Are you a primary career transition specialist to a significant other at home: No Do you presently have visiting nurse or other home services: No Patient Tobacco Use Status: Never used Tobacco e-Cigarette/Vaping Use: Never Used Second Hand Smoke Exposure: No service: No Current occupational status: retired Current occupation: [employer] Cognitive needs: No Hearing needs: No Vision needs: Yes Questionnaire PHQ-9 Over the last 2 weeks, how often have you been bothered by any of the following problems? 1. Little interest or pleasure in doing things: not at all 2. Feeling down, depressed, or hopeless: several days 3. Trouble falling or staying asleep, or sleeping too much: not at all 4. Feeling tired or having little energy: several days 5. Poor appetite or overeating: not at all 6. Feeling bad about yourself - or that you are a failure or have let yourself or your family down: several days 7. Trouble concentrating on things, such as reading the newspaper or watching television: not at all 8. Moving or speaking so slowly that other people could have noticed. Or the opposite - being so fidgety or restless that you have been moving around a lot more than usual: not at all 9. Thoughts that you would be better off or of hurting yourself in some way: not at all Total score: 3 Depression Screening Interpretation: Negative Depression Screening Done: Yes 84451 - PHQ-9 Billing: Yes Source: Developed by Drs. Blas Mahajan, Pat Pleitez, Wayne Fisher and colleagues, with an educational pepe from [employer]. Thrive Questionnaire Date Thrive assessed: 07/20/24 I am a: Patient What is your living situation today?: I have a steady place to live Within the past 12 months, did the food you bought not last and you didn't have the money to get more?: Never true Within the past 12 months, did you worry whether your food would run out before you got money to buy more?: Never true Do you have trouble paying for medicines?: No Do you have trouble getting transportation to medical appointments?: No Do you have trouble paying your heating and electricity bill?: No Do you have trouble taking care of your child, family member or friend?: No Do you have trouble with day-to-day activities such as bathing, preparing meals, shopping, managing finances, etc.?: No Are you currently unemployed and looking for a job?: No Are you interested in more education?: No Please select the resources that you would like help with: None Currently or been in a relationship where the following occur: No concerns reported THRIVE Score: 0 AUDIT C Alcohol Use Questionnaire (AUDIT-C) 1. How often do you have a drink containing alcohol?: Never 3. How often do you have six or more drinks on one occasion?: Never Total Score: 0 Score Reviewed/Action Taken: Yes ADELITA-7 AMB Questionnaire ADELITA-7 Date ADELITA - 7 assessed: 07/20/24 Feeling nervous, anxious, or on edge: 0 = Not at all Not being able to stop or control worryin = Not at all Worrying too much about different things: 0 = Not at all Trouble relaxin = Not at all Being so restless that it is hard to sit still: 0 = Not at all Becoming easily annoyed or irritable: 0 = Not at all Feeling afraid as if something awful might happen: 1 = Several days Total ADELITA-7 score (0-4 normal; 5-9 mild; 10-14 moderate; 15-21 severe): 1 Source: Developed by Drs. Blas Mahajan, Pat Pleitez, Wayne Fisher and colleagues, with an educational pepe from [employer]. ADELITA-7 Assessment Billing ADELITA-7 Assessment Tool: ADELITA-7 Assessment 81064 Review of Systems Const Reports no additional complaints Eyes Details: has appt with [facility] ENT Reports no additional complaints Card Denies chest pain at rest, Denies chest pain with activity, Denies rapid heart rate, Denies pedal edema and Denies dyspnea Resp Denies chest congestion, Denies cough and Denies dyspnea GI Denies abdominal pain, Denies belching and Denies melena Denies hematuria, Denies urinary frequency, Denies difficulty voiding, Denies hot flashes, Denies dysuria and Denies urinary incontinence Musc Reports no additional complaints Neuro Denies seizure-like activity and Denies Sensory deficit (Neuro) Psych Reports no additional complaints Endo Reports no additional complaints [place]/Lymph Reports no additional complaints Aller/Immun Reports no additional complaints Physical exam (Primary Care) Vital Signs: Last Vital Signs Pulse 63 07/20/24 09:19 BP 130/78 07/20/24 09:19 Pulse Ox 98 07/20/24 09:19 Oxygen Delivery Method Room Air 07/20/24 09:19 BMI result Body Mass Index 26.2 Tobacco/Smoking Status: Tobacco use Status Tobacco use date assessed 07/20/24 07/20/24 09:26 Patient Tobacco Use Status Never used Tobacco 07/20/24 09:26 e-Cigarette/Vaping Use Never Used 07/20/24 09:26 PHQ-9: PHQ-9 Score PHQ-9: Total score 3 07/20/24 09:51 Depression Screening Interpretation: Negative Thrive Assessment: Date of Thrive Assessment Date Thrive assessed 07/20/24 07/20/24 09:26 Currently or been in a relationship where the following occur: No concerns reported Const Other: Alert oriented x3, no acute cardiorespiratory distress noted ambulatory normal gait Orientation/consciousness: patient oriented x3 [facility] Head: Yes normocephalic Ears: external ears normal General nose exam: Normal external nose present Face and sinus: Yes face symmetric Mouth: Normal oral and palatal mucosa present, oropharynx normal and moist mucous membranes Eyes General: appearance normal, both eyes and all related structures Neck Other: Slight tenderness on palpation over paraspinal muscles in his posterior cervical spine area, full range of motion cervical spine noted, no swelling or gross bone deformity seen. Neck: Yes full ROM, Yes no lymphadenopathy and Yes supple Resp Auscultation: clear to auscultation bilaterally Cardio Other: S1-S2 present regular rate and rhythm GI Palpation (GI): Soft to palpation, nontender, no guarding and no masses Auscultation: normal bowel sounds General: Yes no CVA tenderness Back/Spine/Pelvis Back: no CVA tenderness and No back tenderness Neuro General: patient oriented x3, gait normal, tone normal, moves all extremities and no focal motor deficits Sensory Exam: No Sensory deficit (Neuro) Extrem General: Yes full ROM, Yes no joint enlargement, Yes no clubbing, cyanosis or edema and Yes normal gait Immunizations pneumoc 20-dav conj-dip cr(PF) 0.5 mL IM syringe Performing Provider: Francia Poole MD Performing Location: [facility] Administered by: Krishan Manuel CMA on 07/20/24 09:49 Dose Route Admin Location Dispensed Lot Number Expiration Date NDC Supervisor Metalizing 0.5 mL IM Right Deltoid 0.5 mL [id number] 04/30/25 4614-4970-58 [employer] VIS Given Date VIS Provided VIS Publication Date 07/20/24 Single Vaccine 21 Eligibility Eligibility Date Funding Source Not [facility] Eligible 07/20/24 Private Results Reviewed Results Reviewed: Laboratory Tests 07/17/24 07/17/24 08:51 09:00 Estimat Average Glucose 143 Hemoglobin A1c % 6.6 H Urine Creatinine 96.58 Urine Microalbumin 8.0 Microalb/Creat Ratio 8.2 Name: Izzy Gambino Age/Sex: 78/F : 1945 Unit#: [id number] Attend Dr: Francia Poole MD Re07/17/24 Status: DEP REF Location: [facility] Disch: SPEC : [id number] JONY: 07/17/24 STATUS: COMP REQ : [id number] RECD: 07/17/24-[address]: Francia Poole MD COMP: 07/17/24-5 ENTERED: 07/17/24-[address]: ORDERED: Met Prof Fast, AST, ALT, Lipid Panel Test Result Flag Reference Sodium 141 135-145 mmol/L Potassium 4.2 3.3-5.1 mmol/L CL 106 96-108 mmol/L CO2 26 22-29 mmol/L Gap 13 12-20 BUN 15 9-16 mg/dL Creat 0.84 0.5-1.4 mg/dL EGFR > 60 NOTE: For -[place] individuals, multiply the result by 1.210. Chronic Kidney Disease: Estimated GFR < 60 mL/min/1.73m2 Severe Kidney Disease: Estimated GFR < 15 mL/min/1.73m2 FBS 106 H 60-99 mg/dL A fasting glucose from 100-125 mg/dl is considered impaired (pre-diabetes). CA 9.9 8.4-10.2 mg/dL AST (GOT) 17 5-31 U/L ALT (GPT) 13 0-31 U/L Triglyceride 104 <150 mg/dL Desirable Triglyceride: less than 150 mg/dL Borderline High Triglyceride 150-199 mg/dL High Triglyceride: 200-499 mg/dL Very High Triglyceride: greater than or equal to 5OO mg/dL Cholesterol 179 <200 mg/dL Desirable Cholesterol: less than 200 mg/dL Borderline High Cholesterol: 200-239 mg/dL High Cholesterol: greater than 239 mg/dL LDL Calculated 101 H <100 mg/dL Desirable LDL: less than 100 mg/dL Near Optimal/Above Optimal LDL: 110-129 mg/dL Borderline High LDL: 130-159 mg/dL High LDL: 160-189 mg/dL Very High LDL: greater than or equal to 190 mg/dL HDL 58 >40 mg/dL Desirable HDL: greater than 40 mg/dL Note: This HDL assay may give artificially low results in patients with liver disease. Assessment and Plan Assessment & Plan (1) Refused influenza vaccine: Code(s): Z28.21 - Immunization not carried out because of patient refusal Plan: Patient does not want to get flu shot (2) Type 2 diabetes mellitus without complication, without long-term current use of insulin: Comment: taking metformin once/day-does not check glucose at home Code(s): E11.9 - Type 2 diabetes mellitus without complications Plan: Recent lab results reviewed with patient, with sugar and hemoglobin A1c stable and at goal. Continue with metformin ER 500 mg per tablet taken once a day in a.m. with breakfast, continue to check fasting blood sugar at home, maintain log and bring to next appointment for review. Reinforced diabetic diet and regular exercise with patient. Counseled regarding importance of yearly diabetes retinopathy screening. Patient advised to inspect feet daily, for any signs of injury, callus or infection. Compliance with diet and regular exercise again stressed. Blood pressure goal is less than 130/80, goal LDL is less than 100 and goal hemoglobin A1c is less than 7% follow-up appointment made in--3-months, after fasting labs done. (3) Essential hypertension: Code(s): I10 - Essential (primary) hypertension Plan: Blood pressure at goal of less than 130/80. Continue with metoprolol succinate ER 100 mg daily. Reinforced importance of following a low sodium diet, getting regular exercise, and lowering stress levels. (4) Dyslipidemia: Code(s): E78.5 - Hyperlipidemia, unspecified Plan: Reviewed recent fasting lipid profile with patient with LDL cholesterol not at goal . Continue simvastatin 20 mg at bedtime and [place] 3 fatty acid supplements , in addition to adherence to low-cholesterol diet and regular exercise, at least 30 minutes 3 to 4 times a week. Advised patient to make healthy food choices, eat more fruits, vegetables, whole grains, wild caught fish and low-fat dairy. Limit amount of sugary snacks, meat and fried or fatty food products, as well as processed foods and fast foods. Follow-up scheduled with repeat fasting lipid panel in 3 months. (5) Acute torticollis: Code(s): M43.6 - Torticollis Plan: Advised to try massaging area with Biofreeze or applying Salonpas patch with lidocaine to affected area in posterior neck. Take Tylenol 500 mg 1 tablet every 8 hours as needed for pain. (6) Need for pneumococcal 20-valent conjugate vaccination: Code(s): Z23 - Encounter for immunization Plan: Prevnar 20 given today Orders: Orders Pneumococcal 20 Immunization 07/20/24 Z23 - Encounter for immunization Alanine Aminotransferase 10/11/24 E11.9 - Type 2 diabetes mellitus without complications, E78.5 - Hyperlipidemia, unspecified, I10 - Essential (primary) hypertension Basic Metabolic Panel Fasting 10/11/24 E11.9 - Type 2 diabetes mellitus without complications, E78.5 - Hyperlipidemia, unspecified, I10 - Essential (primary) hypertension Lipid Panel 10/11/24 E11.9 - Type 2 diabetes mellitus without complications, E78.5 - Hyperlipidemia, unspecified, I10 - Essential (primary) hypertension Hemoglobin A1c 10/11/24 E11.9 - Type 2 diabetes mellitus without complications, E78.5 - Hyperlipidemia, unspecified, I10 - Essential (primary) hypertension Aspartate Amino Transferase 10/11/24 E11.9 - Type 2 diabetes mellitus without complications, E78.5 - Hyperlipidemia, unspecified, I10 - Essential (primary) hypertension Coding Level of Care Code Est Pt Level 4 (11506) Complex EM visit Add On G2211 Diagnoses Refused influenza vaccine Z28.21 Type 2 diabetes mellitus without complication, without long-term current use of insulin E11.9 Essential hypertension I10 Dyslipidemia E78.5 Acute torticollis M43.6 Need for pneumococcal 20-valent conjugate vaccination Z23 Additional Codes ADELITA-7 Assessment Billing - ADELITA-7 Assessment Tool: ADELITA-7 Assessment [id number] ([id number])
== END 2024-07-20 10:47 | disposition home or self-care (01) ==
PROVIDERS: PCP Internal Medicine; Visit Provider Internal Medicine
DX: E11.69 Type 2 diabetes mellitus with other specified complication (principal); I10 Essential (primary) hypertension; E78.5 Hyperlipidemia, unspecified; M43.6 Torticollis
CPT/HCPCS: 90471; 90677; 99214

== ENCOUNTER 2024-10-28 08:47 | Outpatient (REF) | payer MEDICARE, OTHER, SELFPAY ==
--- NOTE | ~2024-10-28 | XR_ITS ---
EXAMINATION: XR CERVICAL SPINE FLEXION EXTENSION HISTORY: M54.2 - Cervicalgia COMPARISON: There are no prior studies for comparison. FINDINGS: AP, lateral, flexion and extension lateral, bilateral oblique, and open-mouth odontoid views of the cervical spine are submitted. Osseous mineralization is normal. Seven cervical vertebral bodies are identified maintaining normal height and alignment without evidence of fracture or subluxation. There is moderate to severe degenerative disc disease at the C5-6 and C6-7 levels, with disc space narrowing and osteophyte formation. There is narrowing of the right C4-5 and C5-6 neural foramen and the left C6-7 neural foramen secondary to facet osteoarthritis and uncovertebral joint hypertrophy. There is no abnormal motion with flexion or extension. The odontoid and lateral masses of C1 are intact. There is no prevertebral soft tissue swelling. XR/XR cervical spine w flex/ext IMPRESSION: Degenerative changes of the cervical spine as described. Electronically signed by: Blas Soria MD 12/08/2024 10:57 AM N[place]
[2024-10-28 13:42] LABS: Estimated Average Glucose 140 mg/dL; Hemoglobin A1C 158.4596 umol/L; Hemoglobin A1c % 6.5 % (<6.0); Total Hemoglobin (HGBA1C) 3344.9569 umol/L
[2024-10-28 13:49] LABS: Alanine Aminotransferase 16 U/L (0-31); Anion Gap 10 (12-20); Aspartate Amino Transferase 24 U/L (5-31); Blood Urea Nitrogen 14 mg/dL (9-16); Calcium 9.6 mg/dL (8.4-10.2); Carbon Dioxide 28 mmol/L (22-29); Chloride 105 mmol/L (96-108); Cholesterol 175 mg/dL (<200); Estimated Glomerular Filt Rate > 60; Glucose Fasting 103 mg/dL (60-99); HDL Cholesterol 63 mg/dL (>40); LDL Cholesterol Calculated 92 mg/dL (<100); Potassium 4.1 mmol/L (3.3-5.1); Sodium 139 mmol/L (135-145); Triglycerides 102 mg/dL (<150)
== END 2024-10-28 08:48 | disposition home or self-care (01) ==
LOC: HO.HMGCX 08:47
PROVIDERS: PCP Internal Medicine; Visit Provider Internal Medicine
DX: Z00.00 Encounter for general adult medical examination without abnormal findings (principal); G89.29 Other chronic pain; M54.2 Cervicalgia; E11.9 Type 2 diabetes mellitus without complications; I10 Essential (primary) hypertension; E78.5 Hyperlipidemia, unspecified; Z71.89 Other specified counseling; Z79.899 Other long term (current) drug therapy
CPT/HCPCS: 36415; 72052; 80048; 80061; 83036; 84450; 84460; 96127; 99212

== ENCOUNTER 2024-10-28 08:47 | Outpatient (AMB) | payer MEDICARE, OTHER, SELFPAY ==
[2024-10-28 08:58] VITALS: BP 140/80; PULSE 58; O2SAT 98; BMI 26.1
--- NOTE | 2024-10-28 08:58 | A.OFFVIS_ITS ---
Intake Vital Signs 10/28/24 08:58 Height 5 ft 6 in Weight 162 lb BMI 26.1 BP 140/80 H Blood Pressure Location Lt brachial Position Sitting Pulse 58 Pulse Source Pulse Oximeter Pulse Oximetry (%) 98 Oxygen Delivery Method Room Air Intake Visit Reasons: WATSONV G0439 Intake Note: Pt is here today for her SWV Allergies cephalexin Allergy (Intermediate, Verified 10/28/24 09:59) facial rash celecoxib [Celebrex] Allergy (Unknown, Verified 10/28/24 09:59) patient unsure what reaction was Medication List - Last Reconciled 10/28/24 by Francia Poole MD acetaminophen 650 mg (2 x 325 mg) PO Q6H PRN 30 days cholecalciferol (vitamin D3) 50 mcg PO DAILY metformin ER 500 mg PO QAM metoprolol succinate ER 100 mg PO DAILY simvastatin 20 mg PO BEDTIME HPI SWV G0439 HPI Details AWV ?78 year old lady with past medical history significant for dyslipidemia, type 2 diabetes mellitus without complication or without long-term use of insulin, hypertension, and arthritis, presents today for her ? Annual Wellness Visit, initial visit.? She is up-to-date with her screening mammogram done 01/24/2024 with benign findings. Longer gets cervical cancer screenings. Last bone density scan was done 06/21/2021 with normal findings. She is up-to-date with her lipid screening, done 07/17/2024 with normal findings and a hemoglobin A1c done on same day was at 6.6%. She is up-to-date with her screening colonoscopy done by Dr. Mcdonald 01/06/2018, due for recheck in 2027. Up-to-date with her pneumococcal vaccination, but does not want to get the shingles vaccine the flu shot or the COVID booster ? Medical / Social History Reviewed? Past Medical History ?Yes . ? [place] of Care / Care Team list updated ?Yes . ? Surgical/Hospitalization History ?Yes . ? Current Medications (including OTC and supplements) ?Yes . ? Family History ?Yes . ? Tobacco Control form ?Yes . ? AUDIT-C (Alcohol use) form ?Yes . ? Illicit drug use in Social History ?Yes . ? Current diagnosis of depression? ?No ? Appropriate PHQ2/PHQ9 completed ?Yes . ? Data entered by ?Supervisor [employer] and reviewed by provider ? Fall Risk ? Fall History? Have you had any falls with injury in the past year? ?No . ? Have you had two or more falls in the past year? ?No . ? Fall Risk Assessment: ?No falls in the past year . ? HRA filled out by the patient, reviewed by Provider and scanned. ?AWV ? Balance? Romberg negative ? Tandem walk ?Yes . ? Walk and Turn ?Yes . ? Rise from sit to stand ?Yes . ?Vision? Corrective lens ?Yes ? Vision screen ? Up-to-date, she sees DR Lenz ?Hearing? Whisper test ?pass . ?Written Plan?Completed. See Patient Documents.? HPI Comments History of Present Illness Details Patient also has been complaining of recurrent pain in her posterior neck, worse with flexion. Denies any history of trauma. Previous cervical x- ray of cervical spine done in 2019 showed presence of degenerative disc disease multilevel. She has just been taking Tylenol arthritis which affords temporary relief. Denies any numbness tingling or weakness in extremities, no urinary or stool incontinence reported. [facility] Medical History Refused influenza vaccine COVID-19 vaccine series completed Rotator cuff tear arthropathy of right shoulder Spondylolisthesis of lumbar region Osteopenia of left femoral neck Menopause Generalized anxiety disorder Essential hypertension Dyslipidemia Type 2 diabetes mellitus without complication, without long-term current use of insulin Surgical History Mass of left forearm Hx of varicose vein ligation History of repair of right rotator cuff History of colonoscopy Family History Father CVD (cardiovascular disease) Myocardial infarction Mother History of CVA (cerebrovascular accident) Stroke Brother HTN (hypertension) Hyperlipidemia Diabetes mellitus Brother No problems noted. Son No problems noted. Daughter No problems noted. Social History Housing: House Are you a primary auto care center manager to a significant other at home: No Do you presently have visiting nurse or other home services: No Patient Tobacco Use Status: Never used Tobacco e-Cigarette/Vaping Use: Never Used Second Hand Smoke Exposure: No service: No Current occupational status: retired Current occupation: [employer] Cognitive needs: No Hearing needs: No Vision needs: Yes Questionnaire Medicare Wellness Checkup [age] What gender do you identify with?: female During the past 4 weeks, how much have you been bothered by emotional problems such as feeling anxious, depressed, irritable, sad or downhearted, and blue?: slightly During the past 4 weeks, has your physical & emotional health limited your social activities with family, friends, neighbors, or groups?: not at all During the past 4 weeks, how much bodily pain have you generally had?: mild pain During the past 4 weeks, was someone available to help you if you needed & wanted help?: yes, as much as I wanted During the past 4 weeks, what was the hardest physical activity you could do for at least 2 minutes?: heavy Can you get to places out of walking distance without help? (For eg., can you travel alone on buses, taxis or drive your car?): Yes Can you go shopping for groceries or clothes without someone's help?: Yes Can you prepare your own meals?: Yes Can you do your housework without help?: Yes Because of any health problems, do you need the help of another person with your personal care needs such as eating, bathing, dressing or getting around the house?: No Can you handle your own money without help?: Yes During the past 4 weeks, how would you rate your health in general?: good During the past 4 weeks how have things been going for you?: pretty well Are you having difficulties driving your car?: no Do you always fasten your seat belt when you are in a car?: yes, usually During past 4 weeks, have you been bothered by the following: never: Falling or dizzy when standing up, Sexual problems?, Trouble eating well?, Teeth or denture problems? and Problems using the telephone? and seldom: Tiredness or fatigue? Have you fallen 2 or more times in the past year?: No Are you afraid of falling?: No Are you a smoker?: no During the past 4 weeks, how many drinks of wine, beer, or other alcoholic beverages did you have?: no alcohol at all Do you exercise for about 20 minutes 3 or more times a week?: yes, all the time Have you been given information to help with the following?: yes: Hazards in your house that might hurt you? and yes: Keeping track of your medications? How often do you have trouble taking medicines the way you have been told to take them?: I always take medicine as prescribed How confident are you that you can control & manage most of your health problems?: very confident What is your race?: White Mini Mental State Exam (MMSE) Orientation What is the (year) (season) (date) (day) (month)?: year (2023), season (fall), date (10/28/2024), day (saturday) and month (october) Where are we (state) (county) (town or city) (hospital) (floor)?: state ([place]), county ([place]), town or city ([place]) and hospital/clinic ([facility]) Score Score: 9 Activity of Daily Living Bathing - sponge bath, tub bath or shower: receives no assistance (gets in/out by self, if usual bathing means Dressing - getting clothes from closets & drawers, including inner/outer garments & fasteners.: gets clothes & gets completely dressed without help Toileting - going to the 'toilet room' for urine/bowel elimination & cleaning self/arranging clothes: goes to toilet room, cleans self, arranges clothes without help Transfer: moves in & out of bed and chair without help (may use support object) Continence: controls urination/bowel movements completely by self Feeding: feeds self without help Total Score: 0 Information obtained from: patient Using telephone: independent Traveling: independent Shopping: independent Preparing meals: independent Housework: independent Taking medicine: independent Managing money: independent PHQ-9 Over the last 2 weeks, how often have you been bothered by any of the following problems? 1. Little interest or pleasure in doing things: not at all 2. Feeling down, depressed, or hopeless: not at all 3. Trouble falling or staying asleep, or sleeping too much: not at all 4. Feeling tired or having little energy: several days 5. Poor appetite or overeating: not at all 6. Feeling bad about yourself - or that you are a failure or have let yourself or your family down: not at all 7. Trouble concentrating on things, such as reading the newspaper or watching television: not at all 8. Moving or speaking so slowly that other people could have noticed. Or the opposite - being so fidgety or restless that you have been moving around a lot more than usual: not at all 9. Thoughts that you would be better off or of hurting yourself in some way: not at all Total score: 1 Depression Screening Interpretation: Negative Depression Screening Done: Yes 98155 - PHQ-9 Billing: Yes Source: Developed by Pat Barrientos. Maik, Wayne Fisher and colleagues, with an educational pepe from [employer]. Review of Systems Const All systems reviewed & are unremarkable except as noted in HPI and below Physical Exam Vital Signs: Last Vital Signs Pulse 58 10/28/24 08:58 BP 140/80 H 10/28/24 08:58 Pulse Ox 98 10/28/24 08:58 Oxygen Delivery Method Room Air 10/28/24 08:58 BMI result Body Mass Index 26.1 Const Other: Alert oriente x3, no acute distress noted, ambulatory normal gait Orientation/consciousness: patient oriented x3 Neck Other: Slight tenderness on palpation over upper aspect of cervical spine, no gross bone deformity, erythema or swelling seen Neck: Yes full ROM, No no lymphadenopathy, No no meningeal signs and Yes supple Resp Auscultation: clear to auscultation bilaterally Cardio Other: S1-S2 present regular rate and rhythm Neuro General: patient oriented x3, gait normal, tone normal, moves all extremities, Normal light touch and pain sensation, No no meningeal signs and no focal motor deficits Assessment & Plan Assessment & Plan (1) Encounter for initial annual wellness visit (AWV) in Medicare patient: Code(s): Z00.00 - Encounter for general adult medical examination without abnormal findings Plan: Medical wellness checklist reviewed, discussed with patient and updated. Briseida lopes received her pneumonia vaccination, but does not want to get any other vaccines. She is Up-to-date with her mammogram bone density and colonoscopy screening (2) Chronic midline posterior neck pain: Code(s): M54.2 - Cervicalgia; G89.29 - Other chronic pain Plan: Ordered x-ray of cervical spine (3) Type 2 diabetes mellitus without complication, without long-term current use of insulin: Comment: taking metformin once/day-does not check glucose at home Code(s): E11.9 - Type 2 diabetes mellitus without complications Plan: Recent lab results reviewed with patient, with sugar and hemoglobin A1c stable and at goal continue to check fasting blood sugar at home, maintain log and bring to next appointment for review. Reinforced diabetic diet and regular exercise with patient. Counseled regarding importance of yearly diabetes retinopathy screening. Patient advised to inspect feet daily, for any signs of injury, callus or infection. Compliance with diet and regular exercise again stressed. Blood pressure goal is less than 130/80, goal LDL is less than 100 and goal hemoglobin A1c is less than 7%. Has an appointment for follow-up next month after fasting labs done (4) Essential hypertension: Code(s): I10 - Essential (primary) hypertension Plan: Continue metoprolol succinate 100 mg once a day (5) Dyslipidemia: Code(s): E78.5 - Hyperlipidemia, unspecified Plan: Continue simvastatin 20 mg at bedtime (6) Advanced directives, counseling/discussion: Code(s): Z71.89 - Other specified counseling Plan: Initiated the conversation about Advanced Directives. Advanced Directives help patients prepare for current and future decisions about their medical treatment and place of care. Discussed with patient that it is a process where a patients current condition and prognosis are reviewed, their wishes for information regarding their illness are elicited, and likely medical dilemmas are presented and options discussed. Healthcare proxy form completed today. The form can be amended as needed, reviewed yearly and make changes as needed Orders: Orders XR cervical spine w flex/ext 10/28/24 G89.29 - Other chronic pain, M54.2 - Cervicalgia Quality Reporting (2019) Depression/Bipolar (159/160/161/177) PHQ-9: Total score: 1 Coding Level of Care Code Medicare First (G0438) Est Pt Level 3 (20398) Diagnoses Encounter for initial annual wellness visit (AWV) in Medicare patient Z00.00 Chronic midline posterior neck pain M54.2; G89.29 Type 2 diabetes mellitus without complication, without long-term current use of insulin E11.9 Essential hypertension I10 Dyslipidemia E78.5 Advanced directives, counseling/discussion Z71.89 CPT Codes Advance Care Planning - Advance Care Planning discussion: On file, no changes ([id number]) Advance Care Planning - Time spent: 1-15 minutes, on File ([id number]) Additional Codes PHQ-9 - 45839 - PHQ-9 Billing: Yes ([id number]) Advance Care Planning Advance Care Planning discussion: On file, no changes Date of discussion: 10/28/24 Who was present: patient Forms completed: Health Care Proxy Time spent: 1-15 minutes, on File Actual minutes spent: 1
== END 2024-10-28 10:13 | disposition home or self-care (01) ==
PROVIDERS: PCP Internal Medicine; Visit Provider Internal Medicine
DX: Z00.00 Encounter for general adult medical examination without abnormal findings (principal); M54.2 Cervicalgia; G89.29 Other chronic pain; E11.69 Type 2 diabetes mellitus with other specified complication; I10 Essential (primary) hypertension; E78.5 Hyperlipidemia, unspecified

== ENCOUNTER → 2024-10-28 09:59 | Outpatient (BNV) | payer MEDICARE, OTHER, SELFPAY | PROVIDERS: PCP Internal Medicine; Visit Provider Radiology Diagnostic Radiology | DX: M50.30 Other cervical disc degeneration, unspecified cervical region (principal) | CPT/HCPCS: 72052 ==

== ENCOUNTER 2024-12-08 09:06 | Outpatient (AMB) | payer MEDICARE, OTHER, SELFPAY ==
[2024-12-08 09:42] VITALS: BP 140/88; PULSE 62; RESP 14; TEMP 36.6; O2SAT 95; BMI 25.8
--- NOTE | 2024-12-08 09:42 | A.OFFPC_ITS ---
Vital Signs 12/08/24 09:42 12/08/24 10:42 Height 5 ft 6 in Weight 160 lb BMI 25.8 BP 140/88 H 135/80 Blood Pressure Location Lt brachial Rt brachial Position Sitting Sitting Respiration 14 Pulse 62 Pulse Source Pulse Oximeter Temp 97.9 F Temp Source Oral Pulse Oximetry (%) 95 Oxygen Delivery Method Room Air Intake Visit Reasons: 1m follow up Intake Note: Pt is here today for her 1mo. f/u Allergies cephalexin Allergy (Intermediate, Verified 12/08/24 10:42) facial rash celecoxib [Celebrex] Allergy (Unknown, Verified 12/08/24 10:42) patient unsure what reaction was Medication List - Last Reconciled 12/08/24 by Francia Poole MD acetaminophen 650 mg (2 x 325 mg) PO Q6H PRN 30 days cholecalciferol (vitamin D3) 50 mcg PO DAILY metformin ER 500 mg PO QAM metoprolol succinate ER 100 mg PO DAILY simvastatin 20 mg PO BEDTIME Tobacco use date assessed: 12/08/24 Fall risk assessment: No Falls in past year Last assessed Fall Risk: 12/08/24 Dental Screening Dental Screen Date: 12/08/24 Did you have a dental visit in the last 12 months?: No Did you have a dental problem in the last 6 months where you did not have access to dental care?: No Was dental information given to patient?: Patient has dentist HPI 1m follow up HPI Details - The patient is a 79-year-old female pr esenting with a follow-up for diabetes and hyperlipidemia. - Blood glucose levels per October lab results indicate well-managed diabetes with A1c at 6.5%. - Cholesterol is well-controlled under c urrent management with Simvastatin. - Urine for microalbuminuria screening came back negative - goes to [facility] for her routi ne eye exam - improving posterior neck pain withex ercise; but sudden movements exacerbate the pain. x-ray done in 10/28/2024 with results still pending, will follow-up - She has yet to receive the updated wilver ngles vaccine following previous ineffective vaccination. declines further COVID booster or flu shot, up-to-date with her pneumonia vaccine [facility] Medical History Refused influenza vaccine COVID-19 vaccine series completed Rotator cuff tear arthropathy of right shoulder Spondylolisthesis of lumbar region Osteopenia of left femoral neck Menopause Generalized anxiety disorder Essential hypertension Dyslipidemia Type 2 diabetes mellitus without complication, without long-term current use of insulin Surgical History Mass of left forearm Hx of varicose vein ligation History of repair of right rotator cuff History of colonoscopy Family History Father CVD (cardiovascular disease) Myocardial infarction Mother History of CVA (cerebrovascular accident) Stroke Brother HTN (hypertension) Hyperlipidemia Diabetes mellitus Brother No problems noted. Son No problems noted. Daughter No problems noted. Social History Housing: House Are you a primary health care marketing manager to a significant other at home: No Do you presently have visiting nurse or other home services: No Patient Tobacco Use Status: Never used Tobacco e-Cigarette/Vaping Use: Never Used Second Hand Smoke Exposure: No service: No Current occupational status: retired Current occupation: [employer] Cognitive needs: No Hearing needs: No Vision needs: Yes Questionnaire PHQ-9 Over the last 2 weeks, how often have you been bothered by any of the following problems? 1. Little interest or pleasure in doing things: not at all 2. Feeling down, depressed, or hopeless: not at all 3. Trouble falling or staying asleep, or sleeping too much: not at all 4. Feeling tired or having little energy: not at all 5. Poor appetite or overeating: not at all 6. Feeling bad about yourself - or that you are a failure or have let yourself or your family down: not at all 7. Trouble concentrating on things, such as reading the newspaper or watching television: not at all 8. Moving or speaking so slowly that other people could have noticed. Or the opposite - being so fidgety or restless that you have been moving around a lot more than usual: not at all 9. Thoughts that you would be better off or of hurting yourself in some way: not at all Total score: 0 Depression Screening Interpretation: Negative Depression Screening Done: Yes 63188 - PHQ-9 Billing: Yes Source: Developed by Drs. Blas Mahajan, Wayne Snider and colleagues, with an educational pepe from [employer]. Thrive Questionnaire Date Thrive assessed: 12/08/24 I am a: Patient What is your living situation today?: I have a steady place to live Within the past 12 months, did the food you bought not last and you didn't have the money to get more?: Never true Within the past 12 months, did you worry whether your food would run out before you got money to buy more?: Never true Do you have trouble paying for medicines?: No Do you have trouble getting transportation to medical appointments?: No Do you have trouble paying your heating and electricity bill?: No Do you have trouble taking care of your child, family member or friend?: No Do you have trouble with day-to-day activities such as bathing, preparing meals, shopping, managing finances, etc.?: No Are you currently unemployed and looking for a job?: No Are you interested in more education?: No Currently or been in a relationship where the following occur: No concerns reported THRIVE Score: 0 AUDIT C Alcohol Use Questionnaire (AUDIT-C) 1. How often do you have a drink containing alcohol?: Never Total Score: 0 ADELITA-7 AMB Questionnaire ADELITA-7 Date ADELITA - 7 assessed: 12/08/24 Feeling nervous, anxious, or on edge: 1 = Several days Not being able to stop or control worryin = Several days Worrying too much about different things: 0 = Not at all Trouble relaxin = Not at all Being so restless that it is hard to sit still: 0 = Not at all Becoming easily annoyed or irritable: 0 = Not at all Feeling afraid as if something awful might happen: 0 = Not at all Total ADELITA-7 score (0-4 normal; 5-9 mild; 10-14 moderate; 15-21 severe): 2 Source: Developed by Drs. Blas Mahajan, Wayne Snider and colleagues, with an educational pepe from [employer]. ADELITA-7 Assessment Billing ADELITA-7 Assessment Tool: ADELITA-7 Assessment 42808 Review of Systems Const Reports no additional complaints Eyes Details: [facility] ENT Reports no additional complaints Card Denies chest pain at rest, Denies chest pain with activity, Denies rapid heart rate, Denies pedal edema and Denies dyspnea Resp Denies chest congestion, Denies cough and Denies dyspnea GI Denies abdominal pain, Denies belching and Denies melena Denies hematuria, Denies urinary frequency, Denies difficulty voiding, Denies hot flashes, Denies dysuria and Denies urinary incontinence Musc Reports no additional complaints Neuro Denies seizure-like activity and Denies Sensory deficit (Neuro) Psych Reports no additional complaints Endo Reports no additional complaints Clinton/Lymph Reports no additional complaints Aller/Immun Reports no additional complaints Physical exam (Primary Care) Vital Signs: Last Vital Signs Temp 97.9 F 12/08/24 09:42 Pulse 62 12/08/24 09:42 Resp 14 12/08/24 09:42 BP 140/88 H 12/08/24 09:42 Pulse Ox 95 12/08/24 09:42 Oxygen Delivery Method Room Air 12/08/24 09:42 BMI result Body Mass Index 25.8 Tobacco/Smoking Status: Tobacco use Status Tobacco use date assessed 12/08/24 12/08/24 09:44 Patient Tobacco Use Status Never used Tobacco 12/08/24 09:44 e-Cigarette/Vaping Use Never Used 12/08/24 09:44 PHQ-9: PHQ-9 Score PHQ-9: Total score 0 12/08/24 10:32 Depression Screening Interpretation: Negative Thrive Assessment: Date of Thrive Assessment Date Thrive assessed 12/08/24 12/08/24 09:44 Currently or been in a relationship where the following occur: No concerns reported Const Other: Alert oriented x3, no acute cardiorespiratory distress noted ambulatory normal gait Orientation/consciousness: patient oriented x3 [facility] Head: Yes normocephalic Ears: external ears normal Face and sinus: Yes face symmetric Mouth: Normal oral and palatal mucosa present, oropharynx normal and moist mucous membranes Eyes General: appearance normal, both eyes and all related structures Neck Other: Slight tenderness on palpation over left paracervical area, full range of motion , no lymphadenopathy Neck: Yes supple Resp Auscultation: clear to auscultation bilaterally Cardio Other: S1-S2 present regular rate and rhythm GI Palpation (GI): Soft to palpation, nontender, no guarding and no masses Auscultation: normal bowel sounds General: Yes no CVA tenderness Back/Spine/Pelvis Back: no CVA tenderness and No back tenderness Neuro General: patient oriented x3, gait normal, tone normal, moves all extremities and no focal motor deficits Sensory Exam: No Sensory deficit (Neuro) Extrem General: Yes full ROM, Yes no joint enlargement, Yes no clubbing, cyanosis or edema and Yes normal gait Results Reviewed Results Reviewed: Laboratory Tests 07/17/24 10/28/24 09:00 10:10 Estimat Average Glucose 140 Hemoglobin A1c % 6.5 H Microalb/Creat Ratio 8.2 Name: Izzy Gambino Age/Sex: 78/F : 1945 Unit#: [id number] Attend Dr: Francia Poole MD Re10/28/24 Status: DEP REF Location: [facility] Disch: SPEC : [id number] JONY: 10/28/24-1010 STATUS: COMP REQ : [id number] RECD: 10/28/24-[address]: Francia Poole MD COMP: 10/28/24-1349 ENTERED: 10/28/24-[address]: ORDERED: Met Prof Fast, AST, ALT, Lipid Panel Test Result Flag Reference Sodium 139 135-145 mmol/L Potassium 4.1 3.3-5.1 mmol/L CL 105 96-108 mmol/L CO2 28 22-29 mmol/L Gap 10 L 12-20 BUN 14 9-16 mg/dL Creat 0.73 0.5-1.4 mg/dL eGFR > 60 Chronic Kidney Disease: Estimated GFR < 60 mL/min/1.73m2 Severe Kidney Disease: Estimated GFR < 15 mL/min/1.73m2 FBS 103 H 60-99 mg/dL A fasting glucose from 100-125 mg/dl is considered impaired (pre-diabetes). CA 9.6 8.4-10.2 mg/dL AST (GOT) 24 5-31 U/L ALT (GPT) 16 0-31 U/L Triglyceride 102 <150 mg/dL Desirable Triglyceride: less than 150 mg/dL Borderline High Triglyceride 150-199 mg/dL High Triglyceride: 200-499 mg/dL Very High Triglyceride: greater than or equal to 5OO mg/dL Cholesterol 175 <200 mg/dL Desirable Cholesterol: less than 200 mg/dL Borderline High Cholesterol: 200-239 mg/dL High Cholesterol: greater than 239 mg/dL LDL Calculated 92 <100 mg/dL Desirable LDL: less than 100 mg/dL Near Optimal/Above Optimal LDL: 110-129 mg/dL Borderline High LDL: 130-159 mg/dL High LDL: 160-189 mg/dL Very High LDL: greater than or equal to 190 mg/dL HDL 63 >40 mg/dL Desirable HDL: greater than 40 mg/dL Note: This HDL assay may give artificially low results in patients with liver disease. Coding Level of Care Code Est Pt Level 4 (19940) Complex EM visit Add On G2211 Diagnoses Type 2 diabetes mellitus without complication, without long-term current use of insulin E11.9 Dyslipidemia E78.5 Essential hypertension I10 Refused influenza vaccine Z28.21 Additional Codes PHQ-9 - 75605 - PHQ-9 Billing: Yes ([id number]) ADELITA-7 Assessment Billing - ADELITA-7 Assessment Tool: ADELITA-7 Assessment 42914 ([id number]) Assessment & Plan Assessment & Plan (1) Type 2 diabetes mellitus without complication, without long-term current use of insulin: Comment: taking metformin once/day-does not check glucose at home Code(s): E11.9 - Type 2 diabetes mellitus without complications Category: Medical (2) Dyslipidemia: Code(s): E78.5 - Hyperlipidemia, unspecified Category: Medical (3) Essential hypertension: Code(s): I10 - Essential (primary) hypertension Category: Medical (4) Refused influenza vaccine: Code(s): Z28.21 - Immunization not carried out because of patient refusal Category: Medical Plan Type 2 Diabetes Mellitus will continue being managed with Metformin, alongside dietary control to curb sugar intake, ensuring blood glucose levels are monitored regularly. Hyperlipidemia should remain under control with nightly Simvastatin. Physical exercise is encouraged to aid with neck pain relief. It?s advised to acquire the latest shingles vaccine. The patient will continue annual ophthalmology checks due to diabetes and past cataract surgery. Repeat labs will be scheduled prior to the follow-up in March. Will call radiology department to get results of cervical x-ray done 10/28/2024. Advised to apply Salonpas patch to affected area twice a day as needed, and return to clinic if no improvement of symptoms. Schedule appointment for follow-up in 03/2025 after fasting labs Patient was informed and verbally consented to the use of an ambient scribe for clinic note documentation during this visit. Orders: Orders Hemoglobin A1c Today E11.9 - Type 2 diabetes mellitus without complications, E78.5 - Hyperlipidemia, unspecified, I10 - Essential (primary) hypertension, M85.852 - Other specified disorders of bone density and structure, left thigh, Z28.21 - Immunization not carried out because of patient refusal, Z78.0 - Asymptomatic menopausal state Microalbumin, Random (w Creat) Today E11.9 - Type 2 diabetes mellitus without complications, E78.5 - Hyperlipidemia, unspecified, I10 - Essential (primary) hypertension, M85.852 - Other specified disorders of bone density and structure, left thigh, Z28.21 - Immunization not carried out because of patient refusal, Z78.0 - Asymptomatic menopausal state Aspartate Amino Transferase Today E11.9 - Type 2 diabetes mellitus without complications, E78.5 - Hyperlipidemia, unspecified, I10 - Essential (primary) hypertension, M85.852 - Other specified disorders of bone density and structure, left thigh, Z28.21 - Immunization not carried out because of patient refusal, Z78.0 - Asymptomatic menopausal state Alanine Aminotransferase Today E11.9 - Type 2 diabetes mellitus without complications, E78.5 - Hyperlipidemia, unspecified, I10 - Essential (primary) hypertension, M85.852 - Other specified disorders of bone density and structure, left thigh, Z28.21 - Immunization not carried out because of patient refusal, Z78.0 - Asymptomatic menopausal state Vitamin D 25-OH Total Today E11.9 - Type 2 diabetes mellitus without complications, E78.5 - Hyperlipidemia, unspecified, I10 - Essential (primary) hypertension, M85.852 - Other specified disorders of bone density and structure, left thigh, Z28.21 - Immunization not carried out because of patient refusal, Z78.0 - Asymptomatic menopausal state Lipid Panel Today E11.9 - Type 2 diabetes mellitus without complications, E78.5 - Hyperlipidemia, unspecified, I10 - Essential (primary) hypertension, M85.852 - Other specified disorders of bone density and structure, left thigh, Z28.21 - Immunization not carried out because of patient refusal, Z78.0 - Asymptomatic menopausal state Basic Metabolic Panel Fasting Today E11.9 - Type 2 diabetes mellitus without complications, E78.5 - Hyperlipidemia, unspecified, I10 - Essential (primary) hypertension, M85.852 - Other specified disorders of bone density and structure, left thigh, Z28.21 - Immunization not carried out because of patient refusal, Z78.0 - Asymptomatic menopausal state
[2024-12-08 10:42] VITALS: BP 135/80
== END 2024-12-08 10:45 | disposition home or self-care (01) ==
PROVIDERS: PCP Internal Medicine; Visit Provider Internal Medicine
DX: E11.9 Type 2 diabetes mellitus without complications (principal); E78.5 Hyperlipidemia, unspecified; I10 Essential (primary) hypertension; Z28.21 Immunization not carried out because of patient refusal

== ENCOUNTER → 2024-12-08 09:06 | Outpatient (BNVA) | payer MEDICARE, OTHER, SELFPAY | PROVIDERS: PCP Internal Medicine; Visit Provider Internal Medicine | DX: E11.9 Type 2 diabetes mellitus without complications (principal); E78.5 Hyperlipidemia, unspecified; I10 Essential (primary) hypertension | CPT/HCPCS: 96127; 99212 ==

== ENCOUNTER 2025-01-27 08:49 | Outpatient (REF) | payer MEDICARE, OTHER, SELFPAY | END 2025-01-27 08:50 | disposition home or self-care (01) | LOC: HO.MAMMO 08:49 | PROVIDERS: PCP Internal Medicine; Visit Provider Internal Medicine | DX: Z12.31 Encounter for screening mammogram for malignant neoplasm of breast (principal) | CPT/HCPCS: 77063; 77067 ==

== ENCOUNTER → 2025-01-27 09:15 | Outpatient (BNV) | payer MEDICARE, OTHER, SELFPAY | PROVIDERS: PCP Internal Medicine; Visit Provider Internal Medicine | DX: Z12.31 Encounter for screening mammogram for malignant neoplasm of breast (principal) | CPT/HCPCS: 77063; 77067 ==

== ENCOUNTER 2025-03-25 08:49 | Outpatient (REF) | payer MEDICARE, OTHER, SELFPAY ==
[2025-03-25 10:56] LABS: Estimated Average Glucose 146 mg/dL; Hemoglobin A1c % 6.7 % (<6.0); Total Hemoglobin (HGBA1C) 3476.0062 umol/L
[2025-03-25 11:04] LABS: Alanine Aminotransferase 14 U/L (0-31); Anion Gap 12 (12-20); Aspartate Amino Transferase 24 U/L (5-31); Blood Urea Nitrogen 16 mg/dL (9-16); Calcium 9.6 mg/dL (8.4-10.2); Carbon Dioxide 27 mmol/L (22-29); Chloride 105 mmol/L (96-108); Cholesterol 175 mg/dL (<200); Estimated Glomerular Filt Rate > 60; Glucose Fasting 117 mg/dL (60-99); HDL Cholesterol 62 mg/dL (>40); LDL Cholesterol Calculated 94 mg/dL (<100); Potassium 4.4 mmol/L (3.3-5.1); Sodium 140 mmol/L (135-145); Triglycerides 95 mg/dL (<150)
[2025-03-25 11:20] LABS: Vitamin D 25-OH Total 72.1 ng/mL (>30)
[2025-03-25 12:02] LABS: Creatinine Urine 122.88 mg/dL
== END 2025-03-25 08:50 | disposition home or self-care (01) ==
LOC: HO.HMGCLDS 08:49
PROVIDERS: PCP Internal Medicine; Visit Provider Internal Medicine
DX: Z78.0 Asymptomatic menopausal state (principal); E78.5 Hyperlipidemia, unspecified; M85.852 Other specified disorders of bone density and structure, left thigh; I10 Essential (primary) hypertension; E11.9 Type 2 diabetes mellitus without complications; Z28.21 Immunization not carried out because of patient refusal
CPT/HCPCS: 36415; 80048; 80061; 82043; 82306; 82570; 83036; 84450; 84460

== ENCOUNTER 2025-03-30 10:39 | Outpatient (AMB) | payer MEDICARE, OTHER, SELFPAY ==
--- NOTE | 2025-03-30 10:43 | MHC.PC.OV ---
Vital Signs 03/30/25 10:47 Height 5 ft 6 in Weight 167 lb BMI 27.0 BP 124/60 Blood Pressure Location Lt brachial Position Sitting Respiration 16 Pulse 60 Pulse Source Pulse Oximeter Temp 98.0 F Temp Source Oral Pulse Oximetry (%) 96 Oxygen Delivery Method Room Air Intake Visit Reasons: 4m follow up Intake Note: Pt is here today for her 4mo. f/u Allergies cephalexin Allergy (Intermediate, Verified 03/30/25 11:17) facial rash celecoxib [Celebrex] Allergy (Unknown, Verified 03/30/25 11:17) patient unsure what reaction was Medication List - Last Reconciled 03/30/25 by Francia Poole MD acetaminophen 650 mg (2 x 325 mg) PO Q6H PRN 30 days cholecalciferol (vitamin D3) 50 mcg PO DAILY metformin ER 500 mg PO QAM metoprolol succinate ER 100 mg PO DAILY simvastatin 20 mg PO BEDTIME Tobacco use date assessed: 03/30/25 Fall risk assessment: No Falls in past year Last assessed Fall Risk: 03/30/25 Dental Screening Dental Screen Date: 03/30/25 Did you have a dental visit in the last 12 months?: No Did you have a dental problem in the last 6 months where you did not have access to dental care?: No Was dental information given to patient?: No HPI 4m follow up HPI Details 79-year-old female presenting with a follow-up for diabetes and hyperlipidemia. Currently on metformin ER 500 mg 1 tablet in the morning, with latest hemoglobin A1c at 6.7 % slightly higher than last check.. Patient states that she has been eating a lot more sweets and not getting any regular exercise this past few months. Her urine microalbumin is within normal limits however. Her fasting lipids are within normal limits, currently taking simvastatin 10 mg at bedtime. Hypertension is also stable controlled on current dose of metoprolol succinate ER 100 mg taken once a day. She goes to [facility] for her diabetes retinopathy screening, last 1 on record was in 2022. Reminded to get her diabetes retinopathy screening done yearly She is up-to-date with her screening mammogram, but is due now for a repeat bone density scan, last 1 done was in 2020 , with normal findings [facility] Medical History Refused influenza vaccine COVID-19 vaccine series completed Rotator cuff tear arthropathy of right shoulder Spondylolisthesis of lumbar region Osteopenia of left femoral neck Menopause Generalized anxiety disorder Essential hypertension Dyslipidemia Type 2 diabetes mellitus without complication, without long-term current use of insulin Surgical History Mass of left forearm Hx of varicose vein ligation History of repair of right rotator cuff History of colonoscopy Family History Father CVD (cardiovascular disease) Myocardial infarction Mother History of CVA (cerebrovascular accident) Stroke Brother HTN (hypertension) Hyperlipidemia Diabetes mellitus Brother No problems noted. Son No problems noted. Daughter No problems noted. Social History Housing: House Are you a primary primary care physician to a significant other at home: No Do you presently have visiting nurse or other home services: No Patient Tobacco Use Status: Never used Tobacco e-Cigarette/Vaping Use: Never Used Second Hand Smoke Exposure: No service: No Current occupational status: retired Current occupation: [employer] Cognitive needs: No Hearing needs: No Vision needs: Yes Questionnaire PHQ-9 Over the last 2 weeks, how often have you been bothered by any of the following problems? Depression Screening Interpretation: Negative Depression Screening Done: Yes Source: Developed by Drs. Blas Mahajan, Wayne Snider and colleagues, with an educational pepe from [employer]. Thrive Questionnaire Date Thrive assessed: 12/08/24 Currently or been in a relationship where the following occur: No concerns reported THRIVE Score: 0 ADELITA-7 AMB Questionnaire ADELITA-7 Date ADELITA - 7 assessed: 12/08/24 Source: Developed by Drs. Bals Mahajan, Wayne Snider and colleagues, with an educational pepe from [employer]. Review of Systems Const Reports no additional complaints Eyes Details: peaces [facility] E[facility] Reports no additional complaints Card Denies chest pain at rest, Denies chest pain with activity, Denies rapid heart rate, Denies pedal edema and Denies dyspnea Resp Denies chest congestion, Denies cough and Denies dyspnea GI Denies abdominal pain, Denies belching and Denies melena Denies hematuria, Denies urinary frequency, Denies difficulty voiding, Denies hot flashes, Denies dysuria and Denies urinary incontinence Musc Details: Recurrent posterior neck pain, usually worse after lying down on her recliner. Takes a Tylenol arthritis at bedtime and states that it has been helping relieve all the pain and stiffness when she wakes up in the morning. Neuro Denies seizure-like activity and Denies Sensory deficit (Neuro) Psych Reports no additional complaints Endo Reports no additional complaints Clinton/Lymph Reports no additional complaints Aller/Immun Reports no additional complaints Physical exam (Primary Care) Vital Signs: Last Vital Signs Temp 98.0 F 03/30/25 10:47 Pulse 60 03/30/25 10:47 Resp 16 03/30/25 10:47 BP 124/60 03/30/25 10:47 Pulse Ox 96 03/30/25 10:47 Oxygen Delivery Method Room Air 03/30/25 10:47 BMI result Body Mass Index 27.0 Tobacco/Smoking Status: Tobacco use Status Tobacco use date assessed 03/30/25 03/30/25 10:44 Patient Tobacco Use Status Never used Tobacco 03/30/25 10:44 e-Cigarette/Vaping Use Never Used 03/30/25 10:44 Depression Screening Interpretation: Negative Thrive Assessment: Date of Thrive Assessment Date Thrive assessed 12/08/24 03/30/25 10:44 Currently or been in a relationship where the following occur: No concerns reported Const Other: Alert oriented x3, no acute cardiorespiratory distress noted ambulatory normal gait Orientation/consciousness: patient oriented x3 [facility] Head: Yes normocephalic Ears: external ears normal Face and sinus: Yes face symmetric Mouth: Normal oral and palatal mucosa present, oropharynx normal and moist mucous membranes Eyes General: appearance normal, both eyes and all related structures Neck Neck: Yes supple Resp Auscultation: clear to auscultation bilaterally Cardio Other: S1-S2 present regular rate and rhythm GI Palpation (GI): Soft to palpation, nontender, no guarding and no masses Auscultation: normal bowel sounds General: Yes no CVA tenderness Back/Spine/Pelvis Back: no CVA tenderness and No back tenderness Skin General skin exam: no rashes or lesions noted Neuro General: patient oriented x3, gait normal, tone normal, moves all extremities and no focal motor deficits Sensory Exam: No Sensory deficit (Neuro) Extrem General: Yes full ROM, Yes no joint enlargement, Yes no clubbing, cyanosis or edema and Yes normal gait Psych Appearance: grossly normal and well kempt Mental Status: mental status grossly normal Speech and movement: Normal speech and movement present Affect: normal affect Results Reviewed Results Reviewed: melva: Izzy Gambino Age/Sex: 79/F : 1945 Unit#: [id number] Attend Dr: Francia Poole MD Re03/25/25 Status: DEP [facility]: SPEC : [id number] JONY: 03/25/25 STATUS: COMP REQ : [id number] RECD: 03/25/[address]: Francia Poole MD COMP: 03/25/25 ENTERED: 03/25/[address]: ORDERED: Met Prof Fast, AST, ALT, Lipid Panel, Vitamin D 25-OH Test Result Flag Reference Sodium 140 135-145 mmol/L Potassium 4.4 3.3-5.1 mmol/L CL 105 96-108 mmol/L CO2 27 22-29 mmol/L Gap 12 12-20 BUN 16 9-16 mg/dL Creat 0.76 0.5-1.4 mg/dL eGFR > 60 Chronic Kidney Disease: Estimated GFR < 60 mL/min/1.73m2 Severe Kidney Disease: Estimated GFR < 15 mL/min/1.73m2 FBS 117 H 60-99 mg/dL A fasting glucose from 100-125 mg/dl is considered impaired (pre-diabetes). CA 9.6 8.4-10.2 mg/dL AST (GOT) 24 5-31 U/L ALT (GPT) 14 0-31 U/L Triglyceride 95 <150 mg/dL Desirable Triglyceride: less than 150 mg/dL Borderline High Triglyceride 150-199 mg/dL High Triglyceride: 200-499 mg/dL Very High Triglyceride: greater than or equal to 5OO mg/dL Cholesterol 175 <200 mg/dL Desirable Cholesterol: less than 200 mg/dL Borderline High Cholesterol: 200-239 mg/dL High Cholesterol: greater than 239 mg/dL LDL Calculated 94 <100 mg/dL Desirable LDL: less than 100 mg/dL Near Optimal/Above Optimal LDL: 110-129 mg/dL Borderline High LDL: 130-159 mg/dL High LDL: 160-189 mg/dL Very High LDL: greater than or equal to 190 mg/dL HDL 62 >40 mg/dL Desirable HDL: greater than 40 mg/dL Note: This HDL assay may give artificially low results in patients with liver disease. Vitamin D 25-OH 72.1 >30 ng/mL Health Based Reference Values* < 20 ng/mL Deficient 20-30 ng/mL Insufficient > 30 ng/mL Sufficient Laboratory Tests 03/25/25 08:54 Estimat Average Glucose 146 Hemoglobin A1c % 6.7 H Urine Creatinine 122.88 Urine Microalbumin 16.0 Microalb/Creat Ratio 13.0 Coding Level of Care Code Est Pt Level 4 (50787) Complex EM visit Add On G2211 Diagnoses Type 2 diabetes mellitus without complication, without long-term current use of insulin E11.9 Essential hypertension I10 Dyslipidemia E78.5 Post-menopause Z78.0 Assessment & Plan Assessment & Plan (1) Type 2 diabetes mellitus without complication, without long-term current use of insulin: Comment: taking metformin once/day-does not check glucose at home Code(s): E11.9 - Type 2 diabetes mellitus without complications Category: Medical Plan: Hemoglobin A1c latest 1 is at 6.7%. Continue on current dose of metformin ER 500 mg 1 tablet daily in the morning, reinforced importance of following recommended diet and getting at least 30 minutes of moderate intensity exercise 3 to 4 times a week. She goes to [facility] for her routine eye exam and diabetes retinopathy screening. (2) Essential hypertension: Code(s): I10 - Essential (primary) hypertension Category: Medical Plan: Blood pressure at goal of less than 130/80. Continue with current medication. Reinforced importance of following a low sodium diet, getting regular exercise, and lowering stress levels. (3) Dyslipidemia: Code(s): E78.5 - Hyperlipidemia, unspecified Category: Medical Plan: Reviewed recent fasting lipid profile with patient with levels within normal limits . Continue simvastatin 20 mg at bedtime , in addition to adherence to low-cholesterol diet and regular exercise, at least 30 minutes 3 to 4 times a week. Advised patient to make healthy food choices, eat more fruits, vegetables, whole grains, wild caught fish and low-fat dairy. Limit amount of meat and fried or fatty food products, as well as processed foods and fast foods. Follow-up scheduled with repeat fasting lipid panel in 4 months. (4) Post-menopause: Code(s): Z78.0 - Asymptomatic menopausal state Plan: Ordered a repeat bone density scan to screen for osteoporosis. Last 1 done was in 2020 Orders: Orders XR DEXA axial skeleton Today Z13.820 - Encounter for screening for osteoporosis, Z78.0 - Asymptomatic menopausal state Alanine Aminotransferase 08/11/25 E11.9 - Type 2 diabetes mellitus without complications, E78.5 - Hyperlipidemia, unspecified, I10 - Essential (primary) hypertension, M85.852 - Other specified disorders of bone density and structure, left thigh, Z78.0 - Asymptomatic menopausal state Aspartate Amino Transferase 08/11/25 E11.9 - Type 2 diabetes mellitus without complications, E78.5 - Hyperlipidemia, unspecified, I10 - Essential (primary) hypertension, M85.852 - Other specified disorders of bone density and structure, left thigh, Z78.0 - Asymptomatic menopausal state Basic Metabolic Panel Fasting 08/11/25 E11.9 - Type 2 diabetes mellitus without complications, E78.5 - Hyperlipidemia, unspecified, I10 - Essential (primary) hypertension, M85.852 - Other specified disorders of bone density and structure, left thigh, Z78.0 - Asymptomatic menopausal state Hemoglobin A1c 08/11/25 E11.9 - Type 2 diabetes mellitus without complications, E78.5 - Hyperlipidemia, unspecified, I10 - Essential (primary) hypertension, M85.852 - Other specified disorders of bone density and structure, left thigh, Z78.0 - Asymptomatic menopausal state Lipid Panel 08/11/25 E11.9 - Type 2 diabetes mellitus without complications, E78.5 - Hyperlipidemia, unspecified, I10 - Essential (primary) hypertension, M85.852 - Other specified disorders of bone density and structure, left thigh, Z78.0 - Asymptomatic menopausal state Vitamin D 25-OH Total 08/11/25 E11.9 - Type 2 diabetes mellitus without complications, E78.5 - Hyperlipidemia, unspecified, I10 - Essential (primary) hypertension, M85.852 - Other specified disorders of bone density and structure, left thigh, Z78.0 - Asymptomatic menopausal state Vitamin B12 and Folate 08/11/25 E11.9 - Type 2 diabetes mellitus without complications, E78.5 - Hyperlipidemia, unspecified, I10 - Essential (primary) hypertension, M85.852 - Other specified disorders of bone density and structure, left thigh, Z78.0 - Asymptomatic menopausal state
[2025-03-30 10:47] VITALS: BP 124/60; PULSE 60; RESP 16; TEMP 36.7; O2SAT 96; BMI 27.0
== END 2025-03-30 11:28 | disposition home or self-care (01) ==
LOC: HO.HMCC 10:40
PROVIDERS: PCP Internal Medicine; Visit Provider Internal Medicine
DX: E11.9 Type 2 diabetes mellitus without complications (principal); I10 Essential (primary) hypertension; E78.5 Hyperlipidemia, unspecified; Z78.0 Asymptomatic menopausal state

== ENCOUNTER → 2025-03-30 10:39 | Outpatient (BNVA) | payer MEDICARE, OTHER, SELFPAY | PROVIDERS: PCP Internal Medicine; Visit Provider Internal Medicine | DX: E11.9 Type 2 diabetes mellitus without complications (principal); E78.5 Hyperlipidemia, unspecified; I10 Essential (primary) hypertension; Z78.0 Asymptomatic menopausal state | CPT/HCPCS: 99212 ==

== ENCOUNTER 2025-05-07 08:50 | Outpatient (REF) | payer MEDICARE, OTHER, SELFPAY ==
--- NOTE | ~2025-05-07 | MM_ITS ---
EXAMINATION: DXA BONE DENSITY AXIAL HISTORY: Z13.820 - Encounter for screening for osteoporosis TECHNIQUE: Symptom.ly Dual energy absorptiometry (DEXA) of the lumbar spine, total left hip, and femoral neck was performed. COMPARISON: Comparison is made with the prior examination dated 06/21/2021. FINDINGS: The bone mineral density of the lumbar spine is 1.384, corresponding to a T-score of 1.7, and a Z-score of 3.2. This is indicative of normal bone mineral density. This represents a BMD change of -2.5% compared to the prior exam. This is statistically significant. The bone mineral density of the left total hip is 0.884, corresponding to a T-score of -1.0, and a Z-score of 0.6. This is indicative of normal bone mineral density. This represents a BMD change of -4.3% compared to the prior exam. This is statistically significant. The bone mineral density of the left femoral neck is 0.898, corresponding to a T-score of -1.0, and a Z-score of 0.8. This is indicative of normal bone mineral density. This represents a BMD change of 0.6% compared to the prior exam. FRACTURE RISK: The FRAX index suggests a ten year probability of major osteoporotic fracture of 10.4%, and of hip fracture 1.8%. MM/XR DEXA axial skeleton IMPRESSION: Based on bone mineral density, and according to World Health Organization (WHO) criteria, the diagnosis is consistent with normal bone mineral density. All bone density values are in grams per centimeter squared (g/cm2). Statistically, 68% of repeat scans fall within 1 SD (+/- 0.010 g/cm2 for AP spine L1-L4) and 1 SD (+/- 0.012 g/cm2 for femur total) FRAX is a trademark of the [employer]'s [place] for Metabolic Bone Disease, a World Health Organization (WHO) Collaborating Center. Electronically signed by: Blas Soria MD 05/07/2025 09:28 AM EDT
--- OUTSIDE RECORDS SUMMARY | 2025-05-07 09:07 | XMS_ITS | Patient Health Record ---
Author Organization [facility] Address [address] [place] [address] Care Team Providers Care Winding Operator Name Role Phone Virgilio VORA, Francia Primary Care Provider Blas Motta Unavailable [phone] Reason For Referral No Information Medications Medication SIG (Take, Route, Frequency, Duration) Notes Start Date End Date Status Aspir-81 81 MG 1 tablet Orally Once a day Active Simvastatin 20 MG 1 tablet in the even ing Orally Once a day Active Metoprolol Succinate 100 one tablet oral ly ONCE A DAY in ap Active Social History Tobacco Use: Social History Observation Description Date Details (start date - stop date) Never Smoker NA - NA Tobacco Use/Smoking Question Answer Notes Patient is a nonsmoker Alcohol Screen Question Answer Notes Did you have a drink containing alcohol in the p ast year? No Points 0 Interpretation Negative Section Notes: Nonsmoker; no sig alcohol Problems Problem Type SNOMED Code ICD Code Onset Dates Problem Status W/U Status Risk Notes Problem [id number] Encounter for screening for malignant neoplasm of colon (Z12.11) Active confirmed Problem [id number] Aspirin long-term use (Z79.82) Active confirmed Plan Of Treatment Future Test Test Name Order Date COLONOSCOPY 02/25/2018 Insurance Providers Payer Name Payer Address Payer Phone Subscriber Number Group Number Insured Name Patient Relationship to Insured Coverage Start Date Coverage End Date MEDICARE OF [place] [address] [place] [address] [id number] LORRAINE RUSSELL Self - patient is the insured [facility] DO NOT USE DO NOT USE [facility] CLAIMS USE [facility] [id number] [place] [address] [id number] LORRAINE RUSSELL Self - patient is the insured Medical (General) History Medical History History ICD Code Denies [place],DM,CVA,Lung disease,renal dise ase Hyperlipidemia HTN Describes a negative colonos copy approx 20 yrs ago at [facility] with Dr. Yost Surgical History Surgery Date(Month/Year) Leg veins Right rotator cuff
== END 2025-05-07 08:51 | disposition home or self-care (01) ==
LOC: HO.MAMMO 08:50
PROVIDERS: PCP Internal Medicine; Visit Provider Internal Medicine
DX: Z13.820 Encounter for screening for osteoporosis (principal); Z78.0 Asymptomatic menopausal state
CPT/HCPCS: 77080

== ENCOUNTER → 2025-05-07 09:15 | Outpatient (BNV) | payer MEDICARE, OTHER, SELFPAY | PROVIDERS: PCP Internal Medicine; Visit Provider Radiology Diagnostic Radiology | DX: E28.39 Other primary ovarian failure (principal) | CPT/HCPCS: 77080 ==

== ENCOUNTER 2025-07-16 10:55 | Outpatient (REF) | payer MEDICARE, OTHER, SELFPAY ==
[2025-07-16 15:26] LABS: Chlamydia pneumoniae PCR Not Detected (Not Detect.); Coronavirus 229E PCR Not Detected (Not Detect.); Coronavirus HKU1 PCR Not Detected (Not Detect.); Coronavirus NL63 PCR Not Detected (Not Detect.); Coronavirus OC43 PCR Not Detected (Not Detect.); RSV PCR Not Detected (Not Detect.); Rhino/Enterovirus PCR Not Detected (Not Detect.)
[2025-07-16 15:28] LABS: Influenza A H1 PCR Not Detected (Not Detect.); Influenza A H1-2009 PCR Not Detected (Not Detect.); Influenza A H3 PCR Not Detected (Not Detect.); SARS-CoV-2 PCR Not Detected (Not Detect.)
== END 2025-07-16 10:56 | disposition home or self-care (01) ==
LOC: HO.LNP 10:55
PROVIDERS: PCP Internal Medicine; Visit Provider Physician Assistant
DX: J06.9 Acute upper respiratory infection, unspecified (principal)
CPT/HCPCS: 87633

== ENCOUNTER 2025-07-16 10:55 | Outpatient (AMB) | payer MEDICARE, OTHER, SELFPAY ==
[2025-07-16 11:02] VITALS: BP 134/66; PULSE 64; TEMP 36.4; O2SAT 98
--- NOTE | 2025-07-16 11:02 | MHC.OFFWIV ---
Intake Vital Signs 07/16/25 11:02 Height 5 ft 6 in BP 134/66 Blood Pressure Location Lt brachial Position Sitting Pulse 64 Pulse Source Pulse Oximeter Temp 97.5 F Temp Source Oral Pulse Oximetry (%) 98 Oxygen Delivery Method Room Air Intake Visit Reasons: EP-b/l legs pain, shaking, body weakness Intake Note: pt presents with SOB, fully body weakness, legs shaking and finds herself sort of dragging her legs when she walks- s/s approximately 1 month Patient Tobacco Use Status: Never used Tobacco Allergies cephalexin Allergy (Intermediate, Verified 07/16/25 11:09) facial rash celecoxib (Celebrex) Allergy (Unknown, Verified 07/16/25 11:09) patient unsure what reaction was Do you need a note to return to daycare/school/sports/work: No HPI HPI Comments History of Present Illness Details History - The patient is a 79-year-old female presenting with fatigue and weakness. - Reports of weakness and fatigue, particularly during physical activities, have been ongoing for over a month. - Denies fever, cough, congestion, or urinary symptoms. - Experiences shortness of breath on exertion, requiring pauses during activities such as climbing stairs. - No history of smoking or alcohol use was reported. - Occasional tinnitus is noted, described as ringing in the ears. - Sometimes feels fluttering of her heart when she lays down, she breaths through it and it usually resolves. Physical Exam General: Cooperative, healthy appearing, comfortable and no acute distress Orientation/consciousness: Patient oriented x3 Limitations: Reports feeling weak and fatigued, legs feel heavy Head: Normal to inspection Ears: Hearing grossly normal bilaterally, external ears normal, TMs with cerumen Nose: Normal external nose present, Normal nares present and No nasal discharge present Face and sinus: Normal facial exam and Yes sinuses nontender Mouth: Normal oral and palatal mucosa present and moist mucous membranes Throat: Yes tonsils normal, Yes uvula midline. Posterior oropharynx erythema, no exudates Eyes: Appearance normal, both eyes and all related structures Neck: Normal visual inspection, full ROM Respiratory: Clear to auscultation bilaterally. Normal respiratory effort, able to speak in complete sentences, Actively coughing, no respiratory distress, not tachypneic, no tripod positioning and no use of accessory muscles. Cardiovascular: irregular rate and rhythm. Normal S1 and S2. Skin: No rashes or lesions noted, patient is sweating Neuro: Patient oriented x3 Extremities: Normal to inspection and Yes no clubbing, cyanosis or edema PFSH Medical History Refused influenza vaccine COVID-19 vaccine series completed Rotator cuff tear arthropathy of right shoulder Spondylolisthesis of lumbar region Osteopenia of left femoral neck Menopause Generalized anxiety disorder Essential hypertension Dyslipidemia Type 2 diabetes mellitus without complication, without long-term current use of insulin Surgical History Mass of left forearm Hx of varicose vein ligation History of repair of right rotator cuff History of colonoscopy Family History Father CVD (cardiovascular disease) Myocardial infarction Mother History of CVA (cerebrovascular accident) Stroke Brother HTN (hypertension) Hyperlipidemia Diabetes mellitus Brother No problems noted. Son No problems noted. Daughter No problems noted. Social History Housing: House Are you a primary daycare assistant to a significant other at home: No Do you presently have visiting nurse or other home services: No Patient Tobacco Use Status: Never used Tobacco e-Cigarette/Vaping Use: Never Used Second Hand Smoke Exposure: No service: No Current occupational status: retired Current occupation: [employer] Cognitive needs: No Hearing needs: No Vision needs: Yes Review of Systems Const All systems reviewed & are unremarkable except as noted in HPI and below Physical Exam Vital Signs: Last Vital Signs Temp 97.5 F 07/16/25 11:02 Pulse 64 07/16/25 11:02 BP 134/66 07/16/25 11:02 Pulse Ox 98 07/16/25 11:02 Oxygen Delivery Method Room Air 07/16/25 11:02 Assessment & Plan Assessment & Plan (1) Fatigue: Code(s): R53.83 - Other fatigue Qualifiers: Fatigue type: other Qualified Code(s): R53.83 - Other fatigue Plan: Patient was informed and verbally consented to the use of an ambient scribe for clinic note documentation during this visit Fatigue, Weakness and LINDA - A respiratory panel will be conducted to rule out viral infections as she has erythema in posterior oropharynx - An EKG will be conducted to further investigate the arrhythmia as heart sounds irregular on exam - EKG showed afib with PVC's, no history of afib. So, we will send to ED, pt declined ambulance and feels comfortable driving but wants to picker and sorter load and unload granddaughter at 2pm, I recommended she go straight to the ED and have another friend or family pick the girl up. - [place] [facility] [place] - spoke with Shakira 11:52AM (2) Atrial fibrillation by electrocardiogram: Code(s): I48.91 - Unspecified atrial fibrillation Plan: as above Orders: Orders AMB EKG-In Office Today R53.83 - Other fatigue Resp Pathogen [place] [facility] [place] J06.9 - Acute upper respiratory infection, unspecified Coding Level of Care Code Est Pt Level 5 (88095) Diagnoses Other fatigue R53.83 Fatigue type: other Atrial fibrillation by electrocardiogram I48.91
--- OUTSIDE RECORDS SUMMARY | 2025-07-16 11:58 | XMS_ITS | Patient Health Record ---
Author Organization [facility] Address [address] [place] [address] Care Team Providers Care Fleet Dispatch Manager Name Role Phone Virgilio VORA, Francia Primary Care Provider Blas Motta Unavailable [phone] Reason For Referral No Information Medications Medication [...] Problem Status W/U Status Risk Notes Problem [id number] Encounter for screening for malignant neoplasm of colon (Z12.11) Active confirmed Problem [id number] Aspirin long-term use (Z79.82) Active confirmed Plan Of Treatment Future Test Test Name Order Date COLONOSCOPY 02/25/2018 Insurance Providers Payer Name Payer Address Payer Phone Subscriber Number Group Number Insured Name Patient Relationship to Insured Coverage Start Date Coverage End Date MED[place]ARE OF [place] [address] [place] [address] [id number] LORRAINE RUSSELL Self - patient is the [facility] DO NOT USE [facility] CLAIMS USE [facility] [id number] [place] [address] [id number] LORRAINE RUSSELL Self - patient is the insured Medical (General) History Medical History History ICD Code Denies [place],DM,CVA,Lung disease,renal dise ase Hyperlipidemia HTN Describes a negative colonos copy approx 20 yrs ago at [facility] with Dr. Yost Surgical History Surgery Date(Month/Year) Leg veins Right rotator cuff
== END 2025-07-16 13:23 | disposition home or self-care (01) ==
PROVIDERS: PCP Internal Medicine; Visit Provider Physician Assistant
DX: R53.83 Other fatigue (principal); I48.91 Unspecified atrial fibrillation

== ENCOUNTER 2025-07-16 13:16 | Inpatient (IN) | payer MEDICARE, OTHER, SELFPAY ==
--- NOTE | ~2025-07-16 | XR_ITS ---
EXAMINATION: XR CHEST CLINICAL INFORMATION: LINDA, chest tightness COMPARISON: 11/08/2023. TECHNIQUE: 2 views of the chest were obtained. FINDINGS: The cardiac, hilar, and mediastinal contours are normal. Lungs demonstrate mild diffusely increased prominence of the interstitial markings with subtle Brigitte B lines in both lung bases, findings suggestive of mild interstitial edema. There is no consolidation or focal opacity. There is no pneumothorax or pleural effusion. There is no focal osseous or soft tissue abnormality. There are spinal degenerative changes. Reverse right shoulder arthroplasty in place. XR/XR chest 2V IMPRESSION: Findings suggesting mild interstitial pulmonary edema. No effusions. Electronically signed by: Mario Kerns MD 07/16/2025 02:19 PM EDT
--- NOTE | ~2025-07-16 | CT_ITS ---
CLINICAL HISTORY: PE rule out CT angiography of the chest with IV contrast. 3D/MIP post processing reconstructions were performed. COMPARISON: None provided. FINDINGS: There are no intraluminal filling defects to suggest pulmonary embolism. No evidence of right heart strain. No supraclavicular or axillary lymphadenopathy. Main pulmonary artery is enlarged measuring up to 3.2 cm. Coronary artery calcifications present within the LAD and circumflex. Heavy mitral annular calcifications. No pericardial effusion. Small hiatal hernia. Multiple normal-sized mediastinal lymph nodes. Small bilateral pleural effusions. Smooth interlobular septal thickening. No consolidation. Trachea and central airways are clear. Mild bronchial wall thickening. No bronchiectasis. Visualized portions of the upper abdomen are unremarkable. Flowing marginal osteophytes present throughout the thoracic spine. No acute fracture or suspicious bone lesion. Right reverse shoulder arthroplasty partially visualized. IMPRESSION: 1. No evidence of pulmonary embolism. 2. Small bilateral pleural effusions. Pulmonary edema. 3. Coronary artery atherosclerosis. Enlarged main pulmonary artery can be associated with pulmonary hypertension. This document has been electronically signed by: Tone Mei MD on 07/16/2025 19:43:02
--- NOTE | 2025-07-16 13:21 | ECG_ITS ---
Test Reason : TACHY Blood Pressure : */* mmHG Vent. Rate : 76 BPM Atrial Rate : * BPM P-R Int : * ms QRS Dur : 78 ms QT Int : 400 ms P-R-T Axes : * -10 -13 degrees QTcB Int : 450 ms Atrial fibrillation with premature ventricular or aberrantly conducted complexes Abnormal ECG When compared with ECG of 30-Apr-2022 14:40, Atrial fibrillation has replaced Sinus rhythm Referred By: Chantale Su Electronically Signed By: Fracisco Quan
[2025-07-16 13:31] VITALS: BP 142/78; PULSE 67; RESP 18; TEMP 36.4; O2SAT 96; BMI 27.0
--- NOTE | 2025-07-16 13:31 | ED.GENADULT ---
HPI - General Adult General Chief complaint: Arrhythmia/Palpitations Stated complaint: rapid heartbeat sent from walk in Time Seen by Provider: 07/16/25 16:41 Source: patient Mode of arrival: ambulatory Limitations: no limitations History of Present Illness ED Provider: Dr. Hernández HPI narrative: This is a 79-year-old female history of diabetes and hypertension presented hospital today for evaluation of new onset AFib and exertional shortness of breath. Patient states she has not been feeling well for the past week. Patient noticed that when she walks up the stairs she is more tired and fatigued. This is abnormal for her. Or when she ambulates short distance she is more fatigued as well. Patient went to her doctor's office where they noticed that patient is a new onset AFib therefore patient was sent to the ER for further evaluation. No prior cardiac history. Related Data Home Medications ?Medication ?Instructions ?Recorded ?Confirmed cholecalciferol (vitamin D3) 50 50 mcg PO DAILY 11/03/20 12/08/24 mcg (2,000 unit) capsule Previous Rx's ?Medication ?Instructions ?Recorded acetaminophen 325 mg tablet 650 mg (2 x 325 mg) PO Q6H PRN 05/09/22 Pain, Mild (Pain Scale 1-3) 30 days #240 tabs metoprolol succinate 100 mg 100 mg PO DAILY #90 caps 04/23/25 tablet,extended release 24 hr simvastatin 20 mg tablet 20 mg PO BEDTIME #90 tabs 04/23/25 metformin 500 mg tablet,extended 500 mg PO QAM #90 tabs 06/21/25 release 24 hr Allergies Allergy/AdvReac Type Severity Reaction Status Date / Time cephalexin Allergy Intermediate facial rash Verified 07/16/25 13:35 celecoxib (Celebrex) Allergy Unknown patient Verified 07/16/25 13:35 unsure what reaction was Review of Systems Review of Systems: Pertinent review of systems as mentioned in HPI. All other system otherwise negative. [facility] Past Medical History [facility] Narrative: Medical history as mentioned in HPI Medical History Refused influenza vaccine COVID-19 vaccine series completed Rotator cuff tear arthropathy of right shoulder Spondylolisthesis of lumbar region Osteopenia of left femoral neck Menopause Generalized anxiety disorder Essential hypertension Dyslipidemia Type 2 diabetes mellitus without complication, without long-term current use of insulin Surgical History Mass of left forearm Hx of varicose vein ligation History of repair of right rotator cuff History of colonoscopy Family History Family History Father CVD (cardiovascular disease) Myocardial infarction Mother History of CVA (cerebrovascular accident) Stroke Brother HTN (hypertension) Hyperlipidemia Diabetes mellitus Brother No problems noted. Son No problems noted. Daughter No problems noted. Social History Social History Housing: House Are you a primary care professional to a significant other at home: No Do you presently have visiting nurse or other home services: No Patient Tobacco Use Status: Never used Tobacco Smoked in Last 30 Days: No e-Cigarette/Vaping Use: Never Used Second Hand Smoke Exposure: No Use of substances other than those prescribed or required for medical reasons: No Advance Directives: No Advance Directives Information Provided: Yes service: No Current occupational status: retired Current occupation: Right [employer] Cognitive needs: No Hearing needs: No Vision needs: Yes Physical Exam ED Exam Exam: General: Pleasant, no distress, interacting appropriately Head: Normacephalic, atraumatic ENT: oral mucosa moist, neck supple, no tracheal deviation Cardiovascular: regular rate, regular rhythm, no murmurs, rubbing, gallops Respiratory: CTAB, no wheeze, rales, rhonchi Gastrointestinal: Soft, non distended, non tender, non guarding Extremities: No limb pain or swelling, no calf tenderness Neurological: Awake and alert, no facial droop noted Skin: Warm and dry Psychiatric: Appropriate mood and thoughts Vital Signs: Vital Signs - 24 hr 07/16/25 13:31 07/16/25 16:39 07/16/25 17:51 Temperature 97.5 F 97.4 F Pulse Rate 67 68 Respiratory Rate 18 16 Blood Pressure 142/78 H 185/73 H 150/97 H Pulse Oximetry 96 97 Oxygen Delivery Method Room Air Room Air 07/16/25 18:00 07/16/25 20:00 Temperature 98.3 F 97.4 F Pulse Rate 59 72 Respiratory Rate 16 15 Blood Pressure 154/84 H 167/67 H Pulse Oximetry 97 94 Oxygen Delivery Method Room Air Room Air BMI result Body Mass Index 27.0 Course Course Course Narrative: This is a rapid medical exam performed by Heathre Su NP: Additional HPI, ROS, PE not included below will be deferred to primary provider. Patient is a 79-year-old F pmhx T2DM, HTN, HLD presenting from walk-in for new onset afib on EKG. Patient presented there for 1 month of fatigue/weakness and was found to be in afib on EKG, no hx of same. Complains of LINDA, intermittent chest tightness. Denies recent fevers. Sxs worse at night. Plan: EKG, labs, CXR Medications Administered Discontinued Medications Generic Name Dose Route Start Last Admin Trade Name Freq PRN Reason Stop Dose Admin Furosemide 20 mg 07/16/25 17:23 07/16/25 17:51 Furosemide 20 Mg/2 Ml Vial IVPUSH 07/16/25 17:24 20 mg ONCE ONE Administration Protocol Iohexol 100 ml 07/16/25 19:02 07/16/25 19:03 Iohexol 350 Mg/Ml 100 Ml Infus..Btl IV 07/16/25 19:03 65 ml ONCE ONE Administration Medical Decision Making Medical Decision Making MDM Narrative: 79-year-old female history of diabetes and hypertension presented hospital today for evaluation of fatigue and exertional shortness of breath. Given patient's presentation we will obtain a CTA of the chest to rule out PE. Patient stated that she does not feel right. This is abnormal for her. She has been previously healthy. EKG does show AFib. Patient does have elevated BNP. A dose IV Lasix will be provided the patient. Troponins negative here. She does not have any chest pain at this time. TSH level was normal. Chemistry level is unremarkable. We will obtain a screening lactic acid and obtain a UA to rule out UTI. No leukocytosis on lab work, patient BNP is elevated at 844, patient's TSH is normal. UA did not show any signs of UTI. Patient's CT imaging did not show any signs of PE however does shows pulmonary edema. We will plan to admit patient for new onset CHF and AFib. Patient may benefit from echocardiogram . Patient will be admitted to the hospital. Differential Diagnosis Differential Diagnoses: The differential diagnosis associated with the presentation includes UTI, a new onset AFib, CHF, PE, pulmonary edema Consult Healthcare Provider Management of the patient was discussed with: Hospitalist Lab Data MDM Lab Attestation statement: I reviewed the patient's lab results. 07/16/25 13:46 07/16/25 13:46 Labs: Lab Results 07/16/25 07/16/25 07/16/25 Range/Units 13:46 17:48 18:23 WBC 5.9 (4.8-10.8) X10*3/uL RBC 4.36 (4.20-5.50) X10*6/uL Hgb 12.4 (12.0-16.0) g/dl Hct 37.4 (37.0-47.0) % MCV 85.8 (80.0-98.0) fL MCH 28.4 (27.0-33.0) pg MCHC 33.2 (31.0-35.0) g/dl RDW 15.0 (11.0-16.0) % Plt Count 263 (160-400) X10*3/uL MPV 10.0 (9.4-12.3) fL Immature Gran % (Auto) 0.3 (0.0-0.4) % Neut % (Auto) 54.5 (45-73) % Lymph % (Auto) 28.3 (20-40) % [place] % (Auto) 11.5 H (2-11) % Eos % (Auto) 4.9 H (0-4) % Baso % (Auto) 0.5 (0-2) % Lymph # (Auto) 1.7 (1.2-4.9) X10*3/uL [place] # (Auto) 0.7 (0.1-1.2) X10*3/uL Eos # (Auto) 0.3 (0.0-0.4) X10*3/uL Baso # (Auto) 0.0 (0.0-0.2) X10*3/uL Abs Immat Gran (auto) 0.02 (0.00-0.03) X10*3/uL Absolute Neuts (auto) 3.2 (2.0-8.3) x10*3/uL Absolute Nucleated RBC 0.000 (0.0-0.012) X10*3/uL Nucleated RBC % (auto) 0.0 (0.0-0.2) /100WBC PT 14.9 H (10.9-12.4) SEC INR 1.3 H (0.9-1.1) Sodium 140 (135-145) mmol/L Potassium 4.1 (3.3-5.1) mmol/L Chloride 107 (96-108) mmol/L Carbon Dioxide 26 (22-29) mmol/L Anion Gap 11 L (12-20) BUN 14 (9-16) mg/dL Creatinine 0.88 (0.5-1.4) mg/dL Estim Creat Clear Calc 55.7 Estimated GFR > 60 Random Glucose 174 H (60-115) mg/dL Lactic Acid 1.1 (0.5-2.0) mmol/L Calcium 9.3 (8.4-10.2) mg/dL Magnesium 2.0 (1.6-2.6) mg/dL Total Bilirubin 0.5 (0.0-1.0) mg/dL AST 28 (5-31) U/L ALT 26 (0-31) U/L Alkaline Phosphatase 55 (39-117) U/L Troponin I High Sens 4.9 (<3.5-17.0) ng/L B-Natriuretic Peptide 844 H (<100) pg/mL Total Protein 7.2 (6.5-8.0) g/dL Albumin 4.0 (3.5-5.0) g/dL TSH 1.25 (0.32-4.0) uIU/mL Urine Color Yellow Urine Appearance Clear Urine pH 7.0 (5.0-9.0) Ur Specific [place] <= 1.005 (1.005-1.025) Urine Protein Negative (Neg-Trace) mg/dL Urine Glucose (UA) Negative (Negative) mg/dL Urine Ketones Negative (Negative) mg/dL Urine Blood Negative (Negative) Urine Nitrite Negative (Negative) Ur Leukocyte Esterase Negative (Negative) Independent Interpretation I performed an independent interpretation of an: EKG and CT Scan Radiology Impression Discussion of test interpretation with radiology: I have reviewed the radiologist's reading. Discharge Plan Discharge Clinical Impression: Pulmonary edema, New onset a-fib Patient Disposition: Admitted As Inpatient
[2025-07-16 13:50] LABS: MANUAL DIFF FLAG NO
[2025-07-16 13:53] LABS: Hematocrit 37.4 % (37.0-47.0); Hemoglobin 12.4 g/dl (12.0-16.0); Imm Gran Abs Auto 0.02 X10*3/uL (0.00-0.03); Imm Gran Pct Auto 0.3 % (0.0-0.4); Lymphocytes Absolute Auto 1.7 X10*3/uL (1.2-4.9); Mean Corpuscular HGB Conc 33.2 g/dl (31.0-35.0); Mean Corpuscular Hemoglobin 28.4 pg (27.0-33.0); Mean Corpuscular Volume 85.8 fL (80.0-98.0); NRBC Abs Auto 0.000 X10*3/uL (0.0-0.012); NRBC Pct Auto 0.0 /100WBC (0.0-0.2); Platelet Count 263 X10*3/uL (160-400); Red Blood Count 4.36 X10*6/uL (4.20-5.50); White Blood Count 5.9 X10*3/uL (4.8-10.8)
[2025-07-16 13:58] LABS: INTERNATIONAL NORM RATIO 1.3 (0.9-1.1); Prothrombin Time 14.9 SEC (10.9-12.4)
[2025-07-16 14:21] LABS: B Type Natriuretic Peptide 844 pg/mL (<100)
[2025-07-16 14:23] LABS: Alanine Aminotransferase 26 U/L (0-31); Albumin Level 4.0 g/dL (3.5-5.0); Alkaline Phosphatase 55 U/L (39-117); Anion Gap 11 (12-20); Aspartate Amino Transferase 28 U/L (5-31); Blood Urea Nitrogen 14 mg/dL (9-16); Calcium 9.3 mg/dL (8.4-10.2); Carbon Dioxide 26 mmol/L (22-29); Chloride 107 mmol/L (96-108); Creatinine Clr Calc Pharmacy 55.7; Estimated Glomerular Filt Rate > 60; Magnesium 2.0 mg/dL (1.6-2.6); Potassium 4.1 mmol/L (3.3-5.1); Sodium 140 mmol/L (135-145); Total Protein 7.2 g/dL (6.5-8.0)
[2025-07-16 14:25] LABS: Troponin-I High Sensitivity 4.9 ng/L (<3.5-17.0)
[2025-07-16 16:39] VITALS: BP 185/73; PULSE 68; RESP 16; TEMP 36.3; O2SAT 97
[2025-07-16 17:51] VITALS: BP 150/97
[2025-07-16] MEDS: Furosemide 20 MG/2 ML VIAL IVPUSH (17:51)
[2025-07-16 18:00] VITALS: BP 154/84; PULSE 59; RESP 16; TEMP 36.8; O2SAT 97
[2025-07-16 18:34] LABS: Appearance Urine Clear; Glucose Urine UA Negative (Negative); PH 7.0 (5.0-9.0); Specific Gravity - Urine <= 1.005 (1.005-1.025)
[2025-07-16] MEDS: iohexoL 350 MG/ML 100 ML INFUS..BTL IV (19:03)
[2025-07-16 20:00] VITALS: BP 167/67; PULSE 72; RESP 15; TEMP 36.3; O2SAT 94
--- NOTE | 2025-07-16 21:13 | PM.IMHP ---
History of Present Illness Date of Service: 07/16/25 Attending physician on admission: Mariam Loeng Chief Complaint: Shortness of breath Izzy Gambino is a delightful 79 years old woman with past medical history significant for type 2 diabetes on metformin, essential hypertension and hyperlipidemia presents to the emergency department complaining of worsening shortness on breath with exertion over the last several days. She denied any associated palpitations, chest pain or cough. She also denied headache, abdominal pain, nausea, vomiting, diarrhea or leg edema. She has a long life nonsmoker. Denied alcohol abuse or illicit drug use. She denied history of atrial fibrillation, heart attack, stroke, kidney disease or congestive heart failure. In the ED, she was found to have stable vital signs. There is hypertension and last BP is 167/67. She is not requiring supplemental oxygen. CBC is essentially normal. There is no lactic acidosis. Eosinophilia is noted. INR is 1.3. There are no electrolyte imbalances. BUN is 14 and creatinine 0.88. LFTs are normal. BNP is 844. TSH is normal. Respiratory found a is negative. CXR is suggestive of mild interstitial pulmonary edema without effusions. Chest CTA with IV contrast showed no pulmonary embolism, however, it showed pulmonary edema and small bilateral pleural effusions. There is also coronary artery atherosclerosis, enlarged main pulmonary artery that can be associated with pulmonary hypertension. ED tx: Furosemide 20 mg IV Review of Systems Review of Systems: All 12 systems were reviewed and normal except as noted in HPI. [facility] Medical History Refused influenza vaccine COVID-19 vaccine series completed Rotator cuff tear arthropathy of right shoulder Spondylolisthesis of lumbar region Osteopenia of left femoral neck Menopause Generalized anxiety disorder Essential hypertension Dyslipidemia Type 2 diabetes mellitus without complication, without long-term current use of insulin Family History Father CVD (cardiovascular disease) Myocardial infarction Mother History of CVA (cerebrovascular accident) Stroke Brother HTN (hypertension) Hyperlipidemia Diabetes mellitus Brother No problems noted. Son No problems noted. Daughter No problems noted. Surgical History Mass of left forearm Hx of varicose vein ligation History of repair of right rotator cuff History of colonoscopy Social History Housing: House Are you a primary healthcare risk control consultant to a significant other at home: No Do you presently have visiting nurse or other home services: No Patient Tobacco Use Status: Never used Tobacco Smoked in Last 30 Days: No e-Cigarette/Vaping Use: Never Used Second Hand Smoke Exposure: No Use of substances other than those prescribed or required for medical reasons: No Advance Directives: No Advance Directives Information Provided: Yes service: No Current occupational status: retired Current occupation: Right [employer] Cognitive needs: No Hearing needs: No Vision needs: Yes Meds Allergies Allergy/AdvReac Type Severity Reaction Status Date / Time cephalexin Allergy Intermediate facial rash Verified 07/16/25 13:35 celecoxib (Celebrex) Allergy Unknown patient Verified 07/16/25 13:35 unsure what reaction was Active Medications: Current Medications Acetaminophen (Acetaminophen 325 Mg Tablet) 650 mg PO Q6H PRN PRN Reason: Pain, Mild 1-3,fever,headache Calcium Carbonate (Calcium Carbonate 750 Mg Tab.Chew) 750 mg PO Q4H PRN PRN Reason: Heartburn Magnesium Hydroxide (Milk Of Magnesia 30 Ml Oral.Susp) 30 ml PO DAILY PRN PRN Reason: Constipation Melatonin (Melatonin 3 Mg Tablet) 6 mg PO BEDTIME PRN PRN Reason: Insomnia Sodium Chloride (0.9 % Sodium Chloride Flush 3 Ml Syringe) 3 ml IVFLUSH QSHIFT [facility] Home Medications ?Medication ?Instructions ?Recorded ?Confirmed ?Last Taken ?Type cholecalciferol (vitamin D3) 50 50 mcg PO DAILY 11/03/20 07/16/25 07/16/25 History mcg (2,000 unit) capsule latanoprost 0.005 % eye drops 1 drp ophthalmic (eye) BEDTIME 07/16/25 07/16/25 07/16/25 History metformin 500 mg tablet,extended 500 mg PO DAILY 07/16/25 07/16/25 07/16/25 History release 24 hr Physical Exam Vital Signs and Narrative: Vital Signs: Last Vital Signs Temp 97.4 F 07/16/25 20:00 Pulse 72 07/16/25 20:00 Resp 15 07/16/25 20:00 BP 167/67 H 07/16/25 20:00 Pulse Ox 94 07/16/25 20:00 O2 Del Method Room Air 07/16/25 20:00 BMI result Body Mass Index 27.0 Constitutional - Awake and Alert, No apparent distress HEENT - PERRLA, EOMI. No JVD. Heart - S1S2, RRR, No edema Lungs - Normal lung expansion, Normal respiratory effort, No respiratory distress. No tachypnea. Bibasilar crackles. No wheezing or rhonchi. Abdomen - NT / ND; +BS; No rebound or guarding Extremities - no calf tenderness bilaterally, no swelling Musculoskeletal - Normal inspection, normal ROM Skin - Warm/Dry Neurological - Alert & oriented x3. Moving all extremities spontaneously. Normal speech. Psychological - Appropriate affect Results Labs 07/16/25 13:46 07/16/25 13:46 Labs: Laboratory Results - last 24 hr 07/16/25 07/16/25 07/16/25 13:46 17:48 18:23 MCV 85.8 MCH 28.4 MCHC 33.2 RDW 15.0 Plt Count 263 MPV 10.0 Immature Gran % (Auto) 0.3 Neut % (Auto) 54.5 Lymph % (Auto) 28.3 [place] % (Auto) 11.5 H Eos % (Auto) 4.9 H Baso % (Auto) 0.5 Lymph # (Auto) 1.7 [place] # (Auto) 0.7 Eos # (Auto) 0.3 Baso # (Auto) 0.0 Abs Immat Gran (auto) 0.02 Absolute Neuts (auto) 3.2 Absolute Nucleated RBC 0.000 Nucleated RBC % (auto) 0.0 PT 14.9 H INR 1.3 H Anion Gap 11 L Estim Creat Clear Calc 55.7 Estimated GFR > 60 Random Glucose 174 H Lactic Acid 1.1 Calcium 9.3 Magnesium 2.0 Total Bilirubin 0.5 AST 28 ALT 26 Alkaline Phosphatase 55 B-Natriuretic Peptide 844 H Total Protein 7.2 Albumin 4.0 TSH 1.25 Urine Color Yellow Urine Appearance Clear Urine pH 7.0 Ur Specific [place] <= 1.005 Urine Protein Negative Urine Glucose (UA) Negative Urine Ketones Negative Urine Blood Negative Urine Nitrite Negative Ur Leukocyte Esterase Negative Imaging Radiologist's Impressions: Impressions Chest X-Ray 07/16/25 14:10 IMPRESSION: Findings suggesting mild interstitial pulmonary edema. No effusions. Electronically signed by: Mario Kerns MD 07/16/2025 02:19 PM EDT RP Assessment and Plan (1) Atrial fibrillation by electrocardiogram: Status: Acute (2) Pulmonary edema: Qualifiers: Chronicity: acute Qualified Code(s): J81.0 - Acute pulmonary edema Status: Acute Plan Izzy Gambino is a 79 y/o woman presents with: Acute p[ulmonary edema likely secondary to decompensated congestive heart failure associated with the new onset atrial fibrillation, rate controlled. Telemetry. Pulse oximetry. Supplemental O2 as needed. Intake and output. Low-salt diet. Continue Lasix 20 mg IV daily. Continue metoprolol. Start treatment with Eliquis 5 mg p.o. b.i.d. Obtain TTE and cardiology consult. Type 2 diabetes mellitus. BG checks before meals at bedtime. Hold metformin -recent administration of IV contrast. Insulin sliding scale. Diabetic diet. Check hemoglobin A1c. Essential hypertension. Continue metoprolol. Hyperlipidemia. Continue statin. Code status: Full DVT prophylaxis: Eliquis Patient will need hospitalization for at least 2 midnights for acute pulmonary edema and new onset AFib management and treatment with IV diuresis, continuous cardiac monitoring and evaluation by subspecialty. Quality Stroke Does the patient have a stroke diagnosis?: No VTE Prior VTE?: No VTE Risk Level:: Medical - moderate - high VTE Device Contraindication: Treatment Not Indicated VTE Drug Contraindication: N/A - Med Ordered
--- NOTE | 2025-07-16 21:49 | PHA.MEDREC ---
Addendum entered by Gentry Hernandez RPh 07/16/25 21:52: Reviewed by [facility] Original Note: Pharmacy Consult ? Medication Reconciliation Pharmacy has completed the medication reconciliation. Patient was able to confirm all of her medications. Patient had all her morning medications today.
[2025-07-17] VITALS (7 sets, daily range): BP systolic 123–153; BP diastolic 64–80; PULSE 60–78; RESP 16–20; TEMP 36.1–36.8; O2SAT 92–97; BMI 26.9
--- NOTE | 2025-07-17 | ECG_ITS ---
Test Reason : Afib Blood Pressure : */* mmHG Vent. Rate : 76 BPM Atrial Rate : * BPM P-R Int : * ms QRS Dur : 80 ms QT Int : 422 ms P-R-T Axes : * -8 0 degrees QTcB Int : 474 ms Atrial fibrillation with premature ventricular or aberrantly conducted complexes Abnormal ECG When compared with ECG of 16-Jul-2025 13:27, No significant change was found Referred By: Fracisco Quan Electronically Signed By: ROBEL GRAVES MD
[2025-07-17] MEDS: 0.9 % Sodium Chloride Flush 3 ML SYRINGE IVFLUSH ×2 (01:37→10:20)
[2025-07-17 06:31] LABS: MANUAL DIFF FLAG NO
[2025-07-17 06:33] LABS: Hematocrit 37.7 % (37.0-47.0); Hemoglobin 12.7 g/dl (12.0-16.0); Imm Gran Abs Auto 0.02 X10*3/uL (0.00-0.03); Imm Gran Pct Auto 0.4 % (0.0-0.4); Lymphocytes Absolute Auto 1.3 X10*3/uL (1.2-4.9); Mean Corpuscular HGB Conc 33.7 g/dl (31.0-35.0); Mean Corpuscular Hemoglobin 28.3 pg (27.0-33.0); Mean Corpuscular Volume 84.2 fL (80.0-98.0); NRBC Abs Auto 0.000 X10*3/uL (0.0-0.012); NRBC Pct Auto 0.0 /100WBC (0.0-0.2); Platelet Count 245 X10*3/uL (160-400); Red Blood Count 4.48 X10*6/uL (4.20-5.50); White Blood Count 5.0 X10*3/uL (4.8-10.8)
[2025-07-17 06:53] LABS: Anion Gap 15 (12-20); Blood Urea Nitrogen 12 mg/dL (9-16); Calcium 9.4 mg/dL (8.4-10.2); Carbon Dioxide 25 mmol/L (22-29); Chloride 105 mmol/L (96-108); Creatinine Clr Calc Pharmacy 62.7; Estimated Glomerular Filt Rate > 60; Magnesium 1.9 mg/dL (1.6-2.6); Potassium 3.7 mmol/L (3.3-5.1); Sodium 141 mmol/L (135-145)
--- NOTE | 2025-07-17 07:00 | CA_ITS ---
Transthoracic Echocardiogram Patient (Last, First, Middle): Izzy Gambino A Gender: Female Date of : 1945 Age: 79 Procedure Date: 07/17/2025 Procedure Type: Transthoracic Echocardiogram Location: [facility] [place] Height: 167.64 cm Weight: 75.3 kg BSA: 1.85 m2 Heart Rate: bpm BP: 143 / 73 mmHg Belt Loop Cutter: Referring MD: Mariam Leong MD Symptoms: New onset AFib, pulmonary edema Study Quality: Adequate ECG Rhythm: Atrial Fibrillation Conclusions: - Normal left ventricular size and systolic function. There is moderately increased left ventricular wall thickness. The visually estimated ejection fraction is between 55-60%. - Mildly increased right ventricular cavity size. There is normal right ventricular systolic function. - The left atrium is moderately dilated. - Mild pulmonary hypertension is present. Findings Left Ventricle Normal left ventricular size and systolic function. There is moderately increased left ventricular wall thickness. The visually estimated ejection fraction is between 55-60%. There is no evidence of regional wall motion abnormalities. Diastolic function is indeterminate on the basis of available data. Right Ventricle Mildly increased right ventricular cavity size. There is normal right ventricular systolic function. Atria The left atrium is moderately dilated. The right atrium is likely dilated. Aortic Valve Normal aortic valve structure and function. There is no aortic valve stenosis. There is no aortic valve regurgitation. Mitral Valve There is severe mitral annular calcification. There is trace mitral valve regurgitation. There is no mitral valve stenosis. Pulmonic Valve The pulmonic valve is normal. There is trace pulmonic valve regurgitation. Tricuspid Valve Normal tricuspid valve structure. There is mild to moderate tricuspid valve regurgitation. The right ventricular systolic pressure is 36 mmHg. Normal right atrial pressure. Mild pulmonary hypertension is present. Great Vessels All visible segments of the aorta are normal in size. Venous The inferior vena cava is normal in size and collapses greater than 50% with inspiration. Pericardium/Pleural There is no evidence of pericardial effusion. Prior Study Comparison No prior study available for comparison. Measurements 2D Linear Measurements IVSd: 1.31 0.6-0.9/0.6-1.0 cm LVIDd: 2.88 3.9-5.3/4.2-5.9 cm LVIDd Index: 1.56 2.4-3.2/2.2-3.1 cm/m2 LVIDs: 1.95 2.0-3.6 cm LVPWd: 1.34 0.7-1.1 cm Ao Root: 3.40 2.1-3.5 cm LA Diam: 3.80 2.7-3.8/3.0-4.0 cm LAIDs Index: 2.05 1.5-2.3 cm/m2 LV Mass: 151.03 67-162/88-224 g LV Mass Index: 81.64 43-95/49-115 g/m2 LVOT Diam: 2.20 3.0+(-)1.3 cm 2D Systolic Function EF 4C: 59.30 >55% EF 2C: 62.90 >55% EF BiP: 61.30 >55% Mitral Valve MV VTI: 0.35 MV Pk Christopher: 1.28 MV Mn Christopher: 0.62 MV Pk Grad: 7.00 MV Mn Grad: 2.00 MV Pk E: 1.03 MV Decel Time: 188.00 E'Lateral: 8.27 E'Medial: 6.20 E/E' Med: 16.60 E/E' Lat: 12.50 PHT: 55.00 MVA PHT: 4.00 MVA Continuity: 2.03 Decel Garfield: 5.51 Aortic Valve AoV Pk Christopher: 1.18 AoV Mn Christopher: 0.79 AoV VTI: 0.27 AoV Pk Grad: 6.00 Aov Mn Grad: 3.00 DELFINO Cont.VTI: 2.60 LVOT LVOT Pk Christopher: 0.81 LVOT Mn Christopher: 0.55 LVOT VTI: 0.19 LVOT Pk Grad: 3.00 LVOT Mn Grad: 1.00 LVOT Diam: 2.20 LVOT Area: 3.80 Diastolic Function MV Pk E: 1.03 E'Medial: 6.20 E/E' Med: 16.60 E' Laterial: 8.27 E/E' Lat: 12.50 Right Ventricle TAPSE (mm): 22.00 TVS' Christopher: 12.00 Tricuspid Valve TR Pk Christopher: 2.88 TR Pk Grad: 33.00 RA Press: 3.00 RVSP: 36.00 Great Vessels Aorta Ao Root-2D: 3.40 2.0-3.7 cm Ao Asc: 3.20 2.1-3.4 cm Pulmonary Valve PV Pk Christopher: 0.86 Peak PV Grad: 3.00 Updated in Other Vendor System with Status of Final Fracisco Quan MD electronically signed on 07/17/2025 7:59:39 PM with status of Final
--- NOTE | 2025-07-17 07:56 | HO.PM.IMPN ---
Subjective Subjective Date of Service: 07/17/25 Interval History: Patient was seen by Cardiology Appears to be not hypoxic on room air with symptomatic improvement with IV diuretics Resume Eliquis and we will focus on rate control Review of Systems Review of Systems: Yes all other systems are reviewed and are negative Physical Exam Exam: Exam: General: AOx3, no acute distress Resp: CTA bilaterally CVS: S1, S2, RRR GI: +BS, NT, no distention Skin: Warm, dry Extremities: No edema Psych: Appropriate affect Vital Signs: Vital Signs: Last Vital Signs Temp 97.2 F 07/17/25 07:07 Pulse 76 07/17/25 07:07 Resp 18 07/17/25 07:07 BP 143/73 H 07/17/25 07:07 Pulse Ox 93 07/17/25 07:07 O2 Del Method Room Air 07/17/25 07:07 BMI result Body Mass Index 26.9 Objective Data Active Medications Acetaminophen (Acetaminophen 325 Mg Tablet) 650 mg PO Q6H PRN PRN Reason: Pain, Mild 1-3,fever,headache Apixaban (Apixaban 5 Mg Tablet) 5 mg PO BID JUDIE Atorvastatin Calcium (Atorvastatin Calcium 10 Mg Tablet) 10 mg PO BEDTIME JUDIE Calcium Carbonate (Calcium Carbonate 750 Mg Tab.Chew) 750 mg PO Q4H PRN PRN Reason: Heartburn Furosemide (Furosemide 20 Mg/2 Ml Vial) 20 mg IVPUSH DAILY [facility]; Protocol Latanoprost (Latanoprost 0.005 % Ophth Ping 2.5 Ml Drops) 1 drop EYE-BOTH BEDTIME [facility] Magnesium Hydroxide (Milk Of Magnesia 30 Ml Oral.Susp) 30 ml PO DAILY PRN PRN Reason: Constipation Melatonin (Melatonin 3 Mg Tablet) 6 mg PO BEDTIME PRN PRN Reason: Insomnia Metoprolol Succinate (Metoprolol Succinate Er 100 Mg Tab.Er.24h) 100 mg PO DAILY JUDIE; Protocol Sodium Chloride (0.9 % Sodium Chloride Flush 3 Ml Syringe) 3 ml IVFLUSH QSHIFT [facility] Last Admin: 07/17/25 01:37 Dose: 3 ml Documented By: JOE Vitamin D (Cholecalciferol (Vitamin D3) 25 Mcg Tablet) 50 mcg PO DAILY [facility] Labs 07/17/25 06:27 07/17/25 06:27 Labs: Laboratory Results - last 24 hr 07/16/25 07/16/2525 13:46 17:48 18:23 MCV 85.8 MCH 28.4 MCHC 33.2 RDW 15.0 Plt Count 263 MPV 10.0 Immature Gran % (Auto) 0.3 Neut % (Auto) 54.5 Lymph % (Auto) 28.3 [place] % (Auto) 11.5 H Eos % (Auto) 4.9 H Baso % (Auto) 0.5 Lymph # (Auto) 1.7 [place] # (Auto) 0.7 Eos # (Auto) 0.3 Baso # (Auto) 0.0 Abs Immat Gran (auto) 0.02 Absolute Neuts (auto) 3.2 Absolute Nucleated RBC 0.000 Nucleated RBC % (auto) 0.0 PT 14.9 H INR 1.3 H Anion Gap 11 L Estim Creat Clear Calc 55.7 Estimated GFR > 60 Random Glucose 174 H Lactic Acid 1.1 Calcium 9.3 Magnesium 2.0 Total Bilirubin 0.5 AST 28 ALT 26 Alkaline Phosphatase 55 B-Natriuretic Peptide 844 H Total Protein 7.2 Albumin 4.0 TSH 1.25 Urine Color Yellow Urine Appearance Clear Urine pH 7.0 Ur Specific [place] <= 1.005 Urine Protein Negative Urine Glucose (UA) Negative Urine Ketones Negative Urine Blood Negative Urine Nitrite Negative Ur Leukocyte Esterase Negative 07/17/25 06:27 MCV 84.2 MCH 28.3 MCHC 33.7 RDW 14.6 Plt Count 245 MPV 10.0 Immature Gran % (Auto) 0.4 Neut % (Auto) 51.5 Lymph % (Auto) 27.1 [place] % (Auto) 13.9 H Eos % (Auto) 6.3 H Baso % (Auto) 0.8 Lymph # (Auto) 1.3 [place] # (Auto) 0.7 Eos # (Auto) 0.3 Baso # (Auto) 0.0 Abs Immat Gran (auto) 0.02 Absolute Neuts (auto) 2.6 Absolute Nucleated RBC 0.000 Nucleated RBC % (auto) 0.0 PT INR Anion Gap 15 Estim Creat Clear Calc 62.7 Estimated GFR > 60 Random Glucose 103 Lactic Acid Calcium 9.4 Magnesium 1.9 Total Bilirubin AST ALT Alkaline Phosphatase B-Natriuretic Peptide Total Protein Albumin TSH Urine Color Urine Appearance Urine pH Ur Specific [place] Urine Protein Urine Glucose (UA) Urine Ketones Urine Blood Urine Nitrite Ur Leukocyte Esterase Assessment and Plan (1) Atrial fibrillation with RVR: Status: Acute Assessment and Plan: Patient is a 79-year-old female with PMH and [employer] for HTN, dm type 2, HLD, osteopenia who presented to the ED on 07/12/2025 with acute onset SOB/LINDA and was noted to have new onset AFib with RVR. New onset AFib with RVR Likely structural etiology, we will start her on Eliquis given high CHADS-VASc score, rate controlled with Toprol-XL, Lasix 40 p.o. daily Continue checking electrolytes and monitoring on telemetry If continued to be symptomatic on above therapy, Cardiology will attempt cardioversion on Saturday HTN Continue home meds DM type 2 Insulin sliding scale, hypoglycemia diet This note is constructed using voice recognition software. While every effort has been made to ensure accuracy, calibration laboratory technician errors may have been included. Quality Stroke Does the patient have a stroke diagnosis?: No VTE Prior VTE?: No VTE Risk Level:: Medical - moderate - high VTE Device Contraindication: Treatment Not Indicated VTE Drug Contraindication: N/A - Med Ordered
[2025-07-17] MEDS: Metoprolol Succinate ER 100 MG TAB.ER.24H PO (10:19)
[2025-07-17] MEDS: Furosemide 20 MG/2 ML VIAL 40 MG IVPUSH (10:19)
--- NOTE | 2025-07-17 11:38 | PM.CNCAR ---
History of Present Illness History of Present Illness Date of Service: 07/17/25 Requesting physician: Haylee Nava Chief complaint: Pulmonary edema, new onset AFib Narrative: [age] year female presenting with progressive shortness of breath and congestive heart failure. She was noticed to be in new onset atrial fibrillation. She was on Toprol-XL previously. Heart rate control is good. She was previously not on anticoagulation. No bleeding concerns. She is feeling better with diuretics at this point. Denying any chest discomfort. No edema. [facility]LY [facility] Past Medical History Medical History Refused influenza vaccine COVID-19 vaccine series completed Rotator cuff tear arthropathy of right shoulder Spondylolisthesis of lumbar region Osteopenia of left femoral neck Menopause Generalized anxiety disorder Essential hypertension Dyslipidemia Type 2 diabetes mellitus without complication, without long-term current use of insulin Family History Family History Father CVD (cardiovascular disease) Myocardial infarction Mother History of CVA (cerebrovascular accident) Stroke Brother HTN (hypertension) Hyperlipidemia Diabetes mellitus Brother No problems noted. Son No problems noted. Daughter No problems noted. Surgical History Surgical History Mass of left forearm Hx of varicose vein ligation History of repair of right rotator cuff History of colonoscopy Social History Social History Household Members: Other Household Members Other:: granddaughter Housing: House Are you a primary urgent care nurse practitioner to a significant other at home: No Do you presently have visiting nurse or other home services: No Patient Tobacco Use Status: Never used Tobacco e-Cigarette/Vaping Use: Never Used Second Hand Smoke Exposure: No service: No Current occupational status: retired Current occupation: [employer] Cognitive needs: No Hearing needs: No Vision needs: Yes Meds Allergies Allergy/AdvReac Type Severity Reaction Status Date / Time cephalexin Allergy Intermediate facial rash Verified 07/16/25 13:35 celecoxib (Celebrex) Allergy Unknown patient Verified 07/16/25 13:35 unsure what reaction was Active Medications: Current Medications Acetaminophen (Acetaminophen 325 Mg Tablet) 650 mg PO Q6H PRN PRN Reason: Pain, Mild 1-3,fever,headache Apixaban (Apixaban 5 Mg Tablet) 5 mg PO BID ON LICENSE OF [facility] Last Admin: 07/17/25 10:19 Dose: 5 mg Atorvastatin Calcium (Atorvastatin Calcium 10 Mg Tablet) 10 mg PO BEDTIME ON LICENSE OF [facility] Calcium Carbonate (Calcium Carbonate 750 Mg Tab.Chew) 750 mg PO Q4H PRN PRN Reason: Heartburn Furosemide (Furosemide 20 Mg/2 Ml Vial) 40 mg IVPUSH BID@0900,1800 ON LICENSE OF [facility]; Protocol Last Admin: 07/17/25 10:19 Dose: 40 mg Latanoprost (Latanoprost 0.005 % Ophth Ping 2.5 Ml Drops) 1 drop EYE-BOTH BEDTIME ON LICENSE OF [facility] Magnesium Hydroxide (Milk Of Magnesia 30 Ml Oral.Susp) 30 ml PO DAILY PRN PRN Reason: Constipation Melatonin (Melatonin 3 Mg Tablet) 6 mg PO BEDTIME PRN PRN Reason: Insomnia Metoprolol Succinate (Metoprolol Succinate Er 100 Mg Tab.Er.24h) 100 mg PO DAILY ON LICENSE OF [facility]; Protocol Last Admin: 07/17/25 10:19 Dose: 100 mg Sodium Chloride (0.9 % Sodium Chloride Flush 3 Ml Syringe) 3 ml IVFLUSH QSHIFT ON LICENSE OF [facility] Last Admin: 07/17/25 10:20 Dose: 3 ml Vitamin D (Cholecalciferol (Vitamin D3) 25 Mcg Tablet) 50 mcg PO DAILY ON LICENSE OF [facility] Last Admin: 07/17/25 10:19 Dose: 50 mcg Home Medications ?Medication ?Instructions ?Recorded ?Confirmed ?Last Taken ?Type cholecalciferol (vitamin D3) 50 50 mcg PO DAILY 11/03/20 07/16/25 07/16/25 History mcg (2,000 unit) capsule latanoprost 0.005 % eye drops 1 drp ophthalmic (eye) BEDTIME 07/16/25 07/16/25 07/16/25 History metformin 500 mg tablet,extended 500 mg PO DAILY 07/16/25 07/16/25 07/16/25 History release 24 hr Physical Exam Vital Signs: Vital Signs: Last Vital Signs Temp 97.5 F 07/17/25 11:14 Pulse 78 07/17/25 11:14 Resp 20 07/17/25 11:14 BP 137/80 07/17/25 11:14 Pulse Ox 95 07/17/25 11:14 O2 Del Method Room Air 07/17/25 11:14 BMI result Body Mass Index 26.9 GENERAL APPEARANCE: in no acute distress, pleasant. NECK: no carotid bruit, no jugular venous distention. SKIN: no suspicious lesions, warm and dry. HEART: no murmurs, irregular rate and rhythm. LUNGS: clear to auscultation bilaterally. ABDOMEN: soft, nontender. EXTREMITIES: no edema. PERIPHERAL PULSES: equal. NEUROLOGIC: No gross deficits, AAO X 3 Objective Labs and Meds 07/17/25 06:27 07/17/25 06:27 Lab results: Laboratory Results - last 24 hr 07/16/25 07/16/25 07/16/25 13:46 17:48 18:23 WBC 5.9 RBC 4.36 Hgb 12.4 Hct 37.4 MCV 85.8 MCH 28.4 MCHC 33.2 RDW 15.0 Plt Count 263 MPV 10.0 Immature Gran % (Auto) 0.3 Neut % (Auto) 54.5 Lymph % (Auto) 28.3 [place] % (Auto) 11.5 H Eos % (Auto) 4.9 H Baso % (Auto) 0.5 Lymph # (Auto) 1.7 [place] # (Auto) 0.7 Eos # (Auto) 0.3 Baso # (Auto) 0.0 Abs Immat Gran (auto) 0.02 Absolute Neuts (auto) 3.2 Absolute Nucleated RBC 0.000 Nucleated RBC % (auto) 0.0 PT 14.9 H INR 1.3 H Sodium 140 Potassium 4.1 Chloride 107 Carbon Dioxide 26 Anion Gap 11 L BUN 14 Creatinine 0.88 Estim Creat Clear Calc 55.7 Estimated GFR > 60 Random Glucose 174 H Lactic Acid 1.1 Calcium 9.3 Magnesium 2.0 Total Bilirubin 0.5 AST 28 ALT 26 Alkaline Phosphatase 55 Troponin I High Sens 4.9 B-Natriuretic Peptide 844 H Total Protein 7.2 Albumin 4.0 TSH 1.25 Urine Color Yellow Urine Appearance Clear Urine pH 7.0 Ur Specific [place] <= 1.005 Urine Protein Negative Urine Glucose (UA) Negative Urine Ketones Negative Urine Blood Negative Urine Nitrite Negative Ur Leukocyte Esterase Negative 07/17/25 06:27 WBC 5.0 RBC 4.48 Hgb 12.7 Hct 37.7 MCV 84.2 MCH 28.3 MCHC 33.7 RDW 14.6 Plt Count 245 MPV 10.0 Immature Gran % (Auto) 0.4 Neut % (Auto) 51.5 Lymph % (Auto) 27.1 [place] % (Auto) 13.9 H Eos % (Auto) 6.3 H Baso % (Auto) 0.8 Lymph # (Auto) 1.3 [place] # (Auto) 0.7 Eos # (Auto) 0.3 Baso # (Auto) 0.0 Abs Immat Gran (auto) 0.02 Absolute Neuts (auto) 2.6 Absolute Nucleated RBC 0.000 Nucleated RBC % (auto) 0.0 PT INR Sodium 141 Potassium 3.7 Chloride 105 Carbon Dioxide 25 Anion Gap 15 BUN 12 Creatinine 0.78 Estim Creat Clear Calc 62.7 Estimated GFR > 60 Random Glucose 103 Lactic Acid Calcium 9.4 Magnesium 1.9 Total Bilirubin AST ALT Alkaline Phosphatase Troponin I High Sens B-Natriuretic Peptide Total Protein Albumin TSH Urine Color Urine Appearance Urine pH Ur Specific [place] Urine Protein Urine Glucose (UA) Urine Ketones Urine Blood Urine Nitrite Ur Leukocyte Esterase Imaging Radiologist's impression: Impressions Chest X-Ray 07/16/25 14:10 IMPRESSION: Findings suggesting mild interstitial pulmonary edema. No effusions. Electronically signed by: Mario Kerns MD 07/16/2025 02:19 PM EDT RP Assessment and Plan (1) New onset a-fib: Status: Acute (2) Congestive heart failure: Status: Acute Plan Pleasant 79 year female with new onset atrial fibrillation and congestive heart failure. She has been given IV diuretics and is feeling better. Currently exam is consistent with euvolemic status. Stop IV diuretics and change her to Lasix 40 mg daily from tomorrow morning. Continue Toprol-XL. Agree with Eliquis 5 mg twice a day. We will check echocardiogram to assess LV function. If LV dysfunction then she may need cardioversion. If symptomatically improving then can be discharged home and can have cardioversion as outpatient in 4 weeks. Thank you for allowing me to participate in the care of your patient. Please feel free to contact me if you have any questions. Procedures Date of Service Date of Service: 07/17/25
--- NOTE | 2025-07-17 13:36 | MHC.CM.PN ---
IMM DELIVERED. PATIENT LIVES IN A HOME W/ HER GRANDDAUGHTER. FUNCTIONALLY INDEPENDENT. DENIES USE OF DME OR SERVICES. PCP BLOSSOM SALDANA MD REPORTS SHE DOES NOT HAVE AND HCP. CM PROVIDED EDUCATION AND OFFERED ASSISTANCE. PATIENT DECLINED AT THIS TIME. DP: GOAL IS HOME, SELF CARE. SHE DOES NOT ANTICIPATE THE NEED FOR SERVICES. FAMILY TRANSPORT. CM WILL CONTINUE TO FOLLOW.
[2025-07-17 16:41] LABS: Glucose, Whole Blood 114 mg/dL (60-115)
[2025-07-17 21:08] LABS: Glucose, Whole Blood 129 mg/dL (60-115)
[2025-07-18] VITALS: BP 147/81; PULSE 67; RESP 16; TEMP 36.4; O2SAT 92
[2025-07-18] MEDS: 0.9 % Sodium Chloride Flush 3 ML SYRINGE IVFLUSH ×2 (01:08→08:51)
[2025-07-18 04:00] VITALS: BP 94/60; PULSE 68; RESP 16; TEMP 36.4; O2SAT 93
--- NOTE | 2025-07-18 07:49 | P.PNIM_ITS ---
Subjective Subjective Date of Service: 07/18/25 Physical Exam 2 Vital Signs: Vital Signs: Last Vital Signs Temp 97.5 F 07/18/25 04:00 Pulse 68 07/18/25 04:00 Resp 16 07/18/25 04:00 BP 94/60 07/18/25 04:00 Pulse Ox 93 07/18/25 04:00 O2 Del Method Room Air 07/18/25 04:00 BMI result Body Mass Index 26.9 Objective Data Active Medications Acetaminophen (Acetaminophen 325 Mg Tablet) 650 mg PO Q6H PRN PRN Reason: Pain, Mild 1-3,fever,headache Last Admin: 07/18/25 02:02 Dose: 650 mg Documented By: BLANKA Apixaban (Apixaban 5 Mg Tablet) 5 mg PO BID REPLACED BY [facility] Last Admin: 07/17/25 20:41 Dose: 5 mg Documented By: BLANKA Atorvastatin Calcium (Atorvastatin Calcium 10 Mg Tablet) 10 mg PO BEDTIME REPLACED BY [facility] Last Admin: 07/17/25 20:41 Dose: 10 mg Documented By: BLANKA Calcium Carbonate (Calcium Carbonate 750 Mg Tab.Chew) 750 mg PO Q4H PRN PRN Reason: Heartburn Dextrose (Dextrose 50 % 25 Gm/50 Ml Syringe) 25 gm IVPUSH Q15M PRN; Protocol PRN Reason: per Hypoglycemia Standing Ord. Furosemide (Furosemide 40 Mg Tablet) 40 mg PO DAILY REPLACED BY [facility]; Protocol Glucose (Glucose Gel 15 Gm Gel..Gram.) 15 gm PO Q15M PRN; Protocol PRN Reason: per Hypoglycemia Standing Ord. Insulin Human Lispro (Insulin Lispro 100 Unit/Ml 3 Ml Vial) 0 unit SUBCUT QIDACHS REPLACED BY [facility]; Protocol Last Admin: 07/17/25 22:04 Dose: Not Given Documented By: BLANKA Non-Admin Reason: No Insulin Coverage Latanoprost (Latanoprost 0.005 % Ophth Ping 2.5 Ml Drops) 1 drop EYE-BOTH BEDTIME REPLACED BY [facility] Last Admin: 07/17/25 22:04 Dose: Not Given Documented By: BLANKA Non-Admin Reason: Patient Refused Magnesium Hydroxide (Milk Of Magnesia 30 Ml Oral.Susp) 30 ml PO DAILY PRN PRN Reason: Constipation Melatonin (Melatonin 3 Mg Tablet) 6 mg PO BEDTIME PRN PRN Reason: Insomnia Last Admin: 07/17/25 20:41 Dose: 6 mg Documented By: BLANKA Metoprolol Succinate (Metoprolol Succinate Er 100 Mg Tab.Er.24h) 100 mg PO DAILY REPLACED BY [facility]; Protocol Last Admin: 07/17/25 10:19 Dose: 100 mg Documented By: SAULO Sodium Chloride (0.9 % Sodium Chloride Flush 3 Ml Syringe) 3 ml IVFLUSH QSHIFT REPLACED BY [facility] Last Admin: 07/18/25 01:08 Dose: 3 ml Documented By: BLANKA Vitamin D (Cholecalciferol (Vitamin D3) 25 Mcg Tablet) 50 mcg PO DAILY REPLACED BY [facility] Last Admin: 07/17/25 10:19 Dose: 50 mcg Documented By: SAULO Labs 07/17/25 06:27 07/17/25 06:27 Labs: Laboratory Results - last 24 hr 07/17/25 07/17/25 16:36 21:04 POC Glucose 114 129 H Quality Stroke Does the patient have a stroke diagnosis?: No VTE Prior VTE?: No VTE Risk Level:: Medical - moderate - high VTE Device Contraindication: Treatment Not Indicated VTE Drug Contraindication: N/A - Med Ordered
[2025-07-18 07:51] VITALS: BP 113/58; PULSE 82; RESP 18; TEMP 36.2; O2SAT 97
[2025-07-18 07:59] LABS: Glucose, Whole Blood 127 mg/dL (60-115)
[2025-07-18 08:09] LABS: MANUAL DIFF FLAG NO
[2025-07-18 08:30] LABS: Hematocrit 40.2 % (37.0-47.0); Hemoglobin 13.6 g/dl (12.0-16.0); Imm Gran Abs Auto 0.01 X10*3/uL (0.00-0.03); Imm Gran Pct Auto 0.2 % (0.0-0.4); Lymphocytes Absolute Auto 1.4 X10*3/uL (1.2-4.9); Mean Corpuscular HGB Conc 33.8 g/dl (31.0-35.0); Mean Corpuscular Hemoglobin 28.5 pg (27.0-33.0); Mean Corpuscular Volume 84.1 fL (80.0-98.0); NRBC Abs Auto 0.000 X10*3/uL (0.0-0.012); NRBC Pct Auto 0.0 /100WBC (0.0-0.2); Platelet Count 278 X10*3/uL (160-400); Red Blood Count 4.78 X10*6/uL (4.20-5.50); White Blood Count 4.8 X10*3/uL (4.8-10.8)
[2025-07-18 08:52] LABS: Alanine Aminotransferase 19 U/L (0-31); Albumin Level 4.0 g/dL (3.5-5.0); Alkaline Phosphatase 62 U/L (39-117); Anion Gap 15 (12-20); Aspartate Amino Transferase 24 U/L (5-31); Blood Urea Nitrogen 20 mg/dL (9-16); Calcium 9.4 mg/dL (8.4-10.2); Carbon Dioxide 26 mmol/L (22-29); Chloride 104 mmol/L (96-108); Creatinine Clr Calc Pharmacy 56.9; Estimated Glomerular Filt Rate > 60; Potassium 3.6 mmol/L (3.3-5.1); Sodium 141 mmol/L (135-145); Total Protein 7.4 g/dL (6.5-8.0)
[2025-07-18] MEDS: Metoprolol Succinate ER 100 MG TAB.ER.24H PO (08:52)
--- NOTE | 2025-07-18 11:09 | PM.DS ---
DS: Providers Provider Date of Service: 07/18/25 Date of admission: 07/16/25 21:05 Date of discharge: 07/18/25 Primary care physician: Francia Poole MD Consults: 07/16/25 21:11 Consult to Cardiology Routine Consulting Provider: [facility] Reason for consultation: Pulmonary edema, new onset AFib Has provider been notified: No DS: Diagnosis Discharge Diagnosis (1) Atrial fibrillation with RVR: Status: Acute DS: Summary Hospital Course Hospital Course: (1) acute hypoxic respiratory distress secondary to new onset Atrial fibrillation with RVR Patient is a 79-year-old female with PMH and [employer] for HTN, dm type 2, HLD, osteopenia who presented to the ED on 07/12/2025 with acute onset SOB/LINDA and was noted to have new onset AFib with RVR. She was noted to have mild pulmonary edema and hence we initiated her on Lasix 40 daily , started her on Eliquis given high CHADS-VASc score, we will continue Toprol-XL rate control home medications. She will follow-up with cardiology outpatient to undergo TTE and further medical management She needs to follow with the primary care HTN Continue home meds , no changes in meds DM type 2 Insulin sliding scale, hypoglycemia diet This note is constructed using voice recognition software. While every effort has been made to ensure accuracy, business process expert errors may have been included. Time spent discussing smoking cessation with patient: more than 10 minutes Time Attestation Discharge Coordination Time (in mins): 35 Quality: Safe Use of Opioids Does Pt have an Active Cancer Diagnosis on the Problem List?: No Quality: Stroke Does the patient have a stroke diagnosis?: No Physical Exam Vital Signs: Vital Signs: Last Vital Signs Temp 97.1 F 07/18/25 07:51 Pulse 82 07/18/25 07:51 Resp 18 07/18/25 07:51 BP 113/58 L 07/18/25 07:51 Pulse Ox 97 07/18/25 07:51 O2 Del Method Room Air 07/18/25 07:51 BMI result Body Mass Index 26.9 DS: Data Data Completed and Pending Completed studies during hospitalization [Text1]: Procedures Replacement of Right Shoulder Joint with Synthetic Substitute, Open Approach (05/08/22) Labs on day of discharge: Laboratory Results - last 24 hr 07/17/25 07/17/25 07/18/25 16:36 21:04 06:57 WBC 4.8 RBC 4.78 Hgb 13.6 Hct 40.2 MCV 84.1 MCH 28.5 MCHC 33.8 RDW 14.6 Plt Count 278 MPV 10.5 Immature Gran % (Auto) 0.2 Neut % (Auto) 51.4 Lymph % (Auto) 28.3 [place] % (Auto) 14.7 H Eos % (Auto) 4.8 H Baso % (Auto) 0.6 Lymph # (Auto) 1.4 [place] # (Auto) 0.7 Eos # (Auto) 0.2 Baso # (Auto) 0.0 Abs Immat Gran (auto) 0.01 Absolute Neuts (auto) 2.5 Absolute Nucleated RBC 0.000 Nucleated RBC % (auto) 0.0 Sodium 141 Potassium 3.6 Chloride 104 Carbon Dioxide 26 Anion Gap 15 BUN 20 H Creatinine 0.86 Estim Creat Clear Calc 56.9 Estimated GFR > 60 POC Glucose 114 129 H Random Glucose 123 H Calcium 9.4 Total Bilirubin 0.6 AST 24 ALT 19 Alkaline Phosphatase 62 Total Protein 7.4 Albumin 4.0 07/18/25 07:55 WBC RBC Hgb Hct MCV MCH MCHC RDW Plt Count MPV Immature Gran % (Auto) Neut % (Auto) Lymph % (Auto) [place] % (Auto) Eos % (Auto) Baso % (Auto) Lymph # (Auto) [place] # (Auto) Eos # (Auto) Baso # (Auto) Abs Immat Gran (auto) Absolute Neuts (auto) Absolute Nucleated RBC Nucleated RBC % (auto) Sodium Potassium Chloride Carbon Dioxide Anion Gap BUN Creatinine Estim Creat Clear Calc Estimated GFR POC Glucose 127 H Random Glucose Calcium Total Bilirubin AST ALT Alkaline Phosphatase Total Protein Albumin Discharge Plan Discharge Anticipated Discharge Date/Time: 07/18/25 11:05 Patient Disposition: Home, Self-Care Discharge Diagnosis: Acute hypoxic respiratory distress due to new onset AFib with RVR Referrals: Francia Poole MD [Primary Care Provider, Internal Medicine] - 1 Week Discharge Medications: New furosemide 40 mg Tablet 40 mg PO DAILY 30 Days Qty: 30 0RF Protocol: Hold for SBP< HOLD for SBP < : 90 Eliquis 5 mg Tablet 5 mg PO BID 30 Days Qty: 60 3RF Continued metoprolol succinate 100 mg tablet extended release 24 hr 100 mg PO DAILY Qty: 90 1RF simvastatin 20 mg tablet 20 mg PO BEDTIME Qty: 90 1RF latanoprost 0.005 % drops 1 drp ophthalmic (eye) BEDTIME Rx Instructions: Both eyes metformin 500 mg tablet extended release 24 hr 500 mg PO DAILY cholecalciferol (vitamin D3) 50 mcg (2,000 unit) capsule 50 mcg PO DAILY Discharge Orders: Discharge Order (Routine); Ordered 07/18/25 Ordered By: Haylee Nava Diet: Low salt diet Activity on Discharge: As tolerated Stand Alone Forms: Patient Portal Discharge page Print Language: [place] Care Plan Goals: Follow-up with PCP Rate control Health maintenance Health Concerns: See above Plan of Treatment: See above Assessment: See above
--- NOTE | 2025-07-18 11:11 | P.PNCA_ITS ---
Subjective Subjective Date of Service: 07/18/25 Interval history: Seen examined at bedside. Feeling better. Physical Exam Vital Signs: Last Vital Signs Temp 97.1 F 07/18/25 07:51 Pulse 82 07/18/25 07:51 Resp 18 07/18/25 07:51 BP 113/58 L 07/18/25 07:51 Pulse Ox 97 07/18/25 07:51 O2 Del Method Room Air 07/18/25 07:51 BMI result Body Mass Index 26.9 GENERAL APPEARANCE: in no acute distress, pleasant. NECK: no carotid bruit, no jugular venous distention. SKIN: no suspicious lesions, warm and dry. HEART: no murmurs, irregular rate and rhythm. LUNGS: clear to auscultation bilaterally. ABDOMEN: soft, nontender. EXTREMITIES: no edema. PERIPHERAL PULSES: equal. NEUROLOGIC: No gross deficits, AAO X 3 Objective Labs and Meds 07/18/25 06:57 07/18/25 06:57 Lab results: Laboratory Results - last 24 hr 07/17/25 07/17/25 07/18/25 16:36 21:04 06:57 WBC 4.8 RBC 4.78 Hgb 13.6 Hct 40.2 MCV 84.1 MCH 28.5 MCHC 33.8 RDW 14.6 Plt Count 278 MPV 10.5 Immature Gran % (Auto) 0.2 Neut % (Auto) 51.4 Lymph % (Auto) 28.3 [place] % (Auto) 14.7 H Eos % (Auto) 4.8 H Baso % (Auto) 0.6 Lymph # (Auto) 1.4 [place] # (Auto) 0.7 Eos # (Auto) 0.2 Baso # (Auto) 0.0 Abs Immat Gran (auto) 0.01 Absolute Neuts (auto) 2.5 Absolute Nucleated RBC 0.000 Nucleated RBC % (auto) 0.0 Sodium 141 Potassium 3.6 Chloride 104 Carbon Dioxide 26 Anion Gap 15 BUN 20 H Creatinine 0.86 Estim Creat Clear Calc 56.9 Estimated GFR > 60 POC Glucose 114 129 H Random Glucose 123 H Calcium 9.4 Total Bilirubin 0.6 AST 24 ALT 19 Alkaline Phosphatase 62 Total Protein 7.4 Albumin 4.0 07/18/25 07:55 WBC RBC Hgb Hct MCV MCH MCHC RDW Plt Count MPV Immature Gran % (Auto) Neut % (Auto) Lymph % (Auto) [place] % (Auto) Eos % (Auto) Baso % (Auto) Lymph # (Auto) [place] # (Auto) Eos # (Auto) Baso # (Auto) Abs Immat Gran (auto) Absolute Neuts (auto) Absolute Nucleated RBC Nucleated RBC % (auto) Sodium Potassium Chloride Carbon Dioxide Anion Gap BUN Creatinine Estim Creat Clear Calc Estimated GFR POC Glucose 127 H Random Glucose Calcium Total Bilirubin AST ALT Alkaline Phosphatase Total Protein Albumin Progress Note: A&P Assessment and plan (1) Congestive heart failure: Status: Acute (2) New onset a-fib: Status: Acute Plan Pleasant 79 year female with new onset atrial fibrillation and congestive heart failure. Diuresed and euvolemic at this stage. She should go home with oral diuretics. Continue Eliquis and Toprol-XL 100 mg daily. Follow up in the office for further discussion about cardioversion as outpatient. Thank you for allowing me to participate in the care of your patient. Please feel free to contact me if you have any questions. Time Spent With Patient Time: Total time managing care of this patient today ____ minutes. Progress Note: Quality Stroke Does the patient have a stroke diagnosis?: No Procedures Date of Service Date of Service: 07/18/25
--- NOTE | 2025-07-18 11:30 | MHC.CM.PN ---
Patient medically cleared for dc home self care via private transport
[2025-07-18 11:33] VITALS: BP 137/68; PULSE 77; RESP 18; TEMP 36.3; O2SAT 95
[2025-07-18 11:36] LABS: Glucose, Whole Blood 141 mg/dL (60-115)
== END 2025-07-18 14:47 | disposition home or self-care (01) | DRG 308 ==
LOC: HO.ED 19:47 → HO.EDOVER 21:07 → HO.IMC 23:52
PROVIDERS: Registered Nurse Emergency; Admitting Provider Internal Medicine; Emergency Provider Student in an Organized Health Care Education/Training Program; PCP Internal Medicine; Visit Provider Student in an Organized Health Care Education/Training Program
DX: I48.91 Unspecified atrial fibrillation (principal); J96.01 Acute respiratory failure with hypoxia; E11.9 Type 2 diabetes mellitus without complications; I50.9 Heart failure, unspecified; I11.0 Hypertensive heart disease with heart failure; E78.5 Hyperlipidemia, unspecified; Z79.84 Long term (current) use of oral hypoglycemic drugs; Z79.899 Other long term (current) drug therapy
CPT/HCPCS: 36415; 71046; 71275; 80048; 80053; 81003; 82947; 83605; 83735; 83880; 84443; 84484; 85025; 85610; 93005; 93306; 99212; 99285; J1938; Q9957; Q9967

== ENCOUNTER → 2025-07-16 13:21 | Outpatient (BNV) | payer MEDICARE, OTHER, SELFPAY | PROVIDERS: Emergency Provider Student in an Organized Health Care Education/Training Program; PCP Internal Medicine; Visit Provider Internal Medicine Cardiovascular Disease | DX: I48.91 Unspecified atrial fibrillation (principal) | CPT/HCPCS: 93010 ==

== ENCOUNTER → 2025-07-16 13:33 | Outpatient (BNV) | payer MEDICARE, OTHER, SELFPAY | PROVIDERS: PCP Internal Medicine; Visit Provider Radiology Diagnostic Radiology | DX: R07.9 Chest pain, unspecified (principal) | CPT/HCPCS: 71046 ==

== ENCOUNTER 2025-07-16 21:05 | Outpatient (BNV) | payer MEDICARE, OTHER, SELFPAY | END 2025-07-17 07:00 | PROVIDERS: Admitting Provider Internal Medicine; Emergency Provider Student in an Organized Health Care Education/Training Program; PCP Internal Medicine; Visit Provider Internal Medicine Cardiovascular Disease | DX: I51.7 Cardiomegaly (principal); R93.1 Abnormal findings on diagnostic imaging of heart and coronary circulation | CPT/HCPCS: 93306 ==

== ENCOUNTER → 2025-07-16 21:05 | Outpatient (BNV) | payer MEDICARE, OTHER, SELFPAY | PROVIDERS: Admitting Provider Internal Medicine; Emergency Provider Student in an Organized Health Care Education/Training Program; PCP Internal Medicine; Visit Provider Internal Medicine Cardiovascular Disease | DX: I50.9 Heart failure, unspecified (principal); I48.91 Unspecified atrial fibrillation | CPT/HCPCS: 99232 ==

== ENCOUNTER → 2025-07-16 21:05 | Outpatient (BNV) | payer MEDICARE, OTHER, SELFPAY | PROVIDERS: Admitting Provider Internal Medicine; Emergency Provider Student in an Organized Health Care Education/Training Program; PCP Internal Medicine; Visit Provider Internal Medicine | DX: I48.91 Unspecified atrial fibrillation (principal) | CPT/HCPCS: 99223; 99232; 99239 ==

== ENCOUNTER 2025-07-22 11:40 | Outpatient (AMB) | payer MEDICARE, OTHER, SELFPAY ==
--- NOTE | 2025-07-22 11:38 | A.OFFPC_ITS ---
Vital Signs 07/22/25 11:51 Height 5 ft 6 in Weight 160 lb BMI 25.8 BP 122/64 Blood Pressure Location Rt brachial Position Sitting Respiration 16 Pulse 82 Pulse Source Pulse Oximeter Temp 97.9 F Temp Source Oral Pulse Oximetry (%) 99 Oxygen Delivery Method Room Air Intake Visit Reasons: Shortness of Breath Intake Note: Pt is here today for Hospital follow up. Allergies cephalexin Allergy (Intermediate, Verified 07/22/25 11:52) facial rash celecoxib (Celebrex) Allergy (Unknown, Verified 07/22/25 11:52) patient unsure what reaction was Tobacco use date assessed: 07/22/25 Fall risk assessment: No Falls in past year Last assessed Fall Risk: 07/22/25 Dental Screening Dental Screen Date: 03/30/25 HPI HPI Comments History of Present Illness Details History - The patient is a 79-year-old female pr esenting with follow-up after hospitalization for new onset atrial fibrillation with pulmonary edema. - The patient initially presented with f atigue and shortness of breath to [facility], leading to the discovery of atrial fibrillation on EKG so she was sent to the ED and admitted for treatment. - The patient was admitted to the hospit al for three days, where she was started on Lasix and Eliquis. - The patient reports significant improv ement with no more shortness of breath or fatigue. - The patient is taking Lasix daily and Eliquis as prescribed, with awareness of the need for careful monitoring due to the blood-thinning effects of Eliquis. - She has follow up scheduled with Cards . - TTE showed: Conclusions: - Normal left ventricular size and systo lic function. There is moderately increased left ventricular wall thickness. The visually estimated ejection fraction is between 55-60%. - Mildly increased right ventricular cav ity size. There is normal right ventricular systolic function. - The left atrium is moderately dilated. - Mild pulmonary hypertension is present Physical Exam General: Cooperative, healthy appearing, comfortable, no acute distress and well developed Orientation: Patient oriented x3 Limitations: No limitations Head: Normal to inspection Ears: Hearing grossly normal bilaterally Nose: Normal External nose present Face and sinus: Normal facial exam Mouth: normal, moist oral mucosa Eyes: Appearance normal, both eyes and all related structures Neck: Normal visual inspection and Yes full ROM Respiratory: Normal respiratory effort and able to speak in complete sentences. Clear to auscultation bilaterally. Cardiac: regular rate and rhythm, normal s1 and s2 Skin: no rashes or lesions noted Neuro: Patient oriented x3 Extremities: moving all extremities normally PFS Medical History Refused influenza vaccine COVID-19 vaccine series completed Rotator cuff tear arthropathy of right shoulder Spondylolisthesis of lumbar region Osteopenia of left femoral neck Menopause Generalized anxiety disorder Essential hypertension Dyslipidemia Type 2 diabetes mellitus without complication, without long-term current use of insulin Surgical History Mass of left forearm Hx of varicose vein ligation History of repair of right rotator cuff History of colonoscopy Family History Father CVD (cardiovascular disease) Myocardial infarction Mother History of CVA (cerebrovascular accident) Stroke Brother HTN (hypertension) Hyperlipidemia Diabetes mellitus Brother No problems noted. Son No problems noted. Daughter No problems noted. Social History Household Members: Other Household Members Other:: granddaughter Housing: House Are you a primary reservoir caretaker to a significant other at home: No Do you presently have visiting nurse or other home services: No Comment: Patient is Ind Patient Tobacco Use Status: Never used Tobacco e-Cigarette/Vaping Use: Never Used Second Hand Smoke Exposure: No service: No Current occupational status: retired Current occupation: [employer] Cognitive needs: No Hearing needs: No Vision needs: Yes Questionnaire PHQ-9 Over the last 2 weeks, how often have you been bothered by any of the following problems? Depression Screening Interpretation: Negative Depression Screening Done: Yes Source: Developed by Drs. Blas Mahajan, Pat Pleitez, Wayne Fisher and colleagues, with an educational pepe from [employer]. Thrive Questionnaire Date Thrive assessed: 07/17/25 Currently or been in a relationship where the following occur: No concerns rep orted THRIVE Score: 0 ADELITA-7 AMB Questionnaire ADELITA-7 Date ADELITA - 7 assessed: 12/08/24 Source: Developed by Drs. Blas Mahajan, Pat Pleitez, Wayne Fisher and colleagues, with an educational pepe from [employer]. Review of Systems Const All systems reviewed & are unremarkable except as noted in HPI and below Neuro Denies Sensory deficit (Neuro) Physical exam (Primary Care) Vital Signs: Last Vital Signs Temp 97.9 F 07/22/25 11:51 Pulse 82 07/22/25 11:51 Resp 16 07/22/25 11:51 BP 122/64 07/22/25 11:51 Pulse Ox 99 07/22/25 11:51 Oxygen Delivery Method Room Air 07/22/25 11:51 BMI result Body Mass Index 25.8 Tobacco/Smoking Status: Tobacco use Status Tobacco use date assessed 07/22/25 07/22/25 11:57 Patient Tobacco Use Status Never used Tobacco 07/22/25 11:40 e-Cigarette/Vaping Use Never Used 07/22/25 11:40 Depression Screening Interpretation: Negative Thrive Assessment: Date of Thrive Assessment Date Thrive assessed 12/08/24 07/22/25 11:41 Currently or been in a relationship where the following occur: No concerns reported Const Other: Alert oriented x3, no acute cardiorespiratory distress noted ambulatory normal gait Orientation/consciousness: patient oriented x3 [facility] Head: Yes normocephalic Ears: external ears normal Face and sinus: Yes face symmetric Mouth: Normal oral and palatal mucosa present, oropharynx normal and moist mucous membranes Eyes General: appearance normal, both eyes and all related structures Neck Neck: Yes supple Resp Auscultation: clear to auscultation bilaterally Cardio Other: S1-S2 present regular rate and rhythm General: Yes no CVA tenderness Back/Spine/Pelvis Back: no CVA tenderness and No back tenderness Skin General skin exam: no rashes or lesions noted Neuro General: patient oriented x3, gait normal, tone normal, moves all extremities and no focal motor deficits Sensory Exam: No Sensory deficit (Neuro) Extrem General: Yes full ROM, Yes no joint enlargement, Yes no clubbing, cyanosis or edema and Yes normal gait Psych Appearance: grossly normal and well kempt Mental Status: mental status grossly normal Speech and movement: Normal speech and movement present Affect: normal affect Results Reviewed Results Reviewed: [address] [address] Cardiology Report Signed Patient: Izzy Gambino MR#: [id number] : 1945 Acct:[id number] Age/Sex: 79 / F ADM Date: 07/16/25 Loc: [facility] [id number]: Haylee Nava MD Ordering Physician: Mariam Pedersen MD Date of Service: 07/17/25 Procedure(s): CA echo transthoracic complete Accession Number(s): cc: Mariam Pedersen MD~ Reason for Exam: New onset AFib, pulmonary edema Transthoracic Echocardiogram Patient (Last, First, Middle): Izzy Gambino A Gender: Female Date of : 1945 Age: 79 Procedure Date: 07/17/2025 Procedure Type: Transthoracic Echocardiogram Location: [facility] Height: 167.64 cm Weight: 75.3 kg BSA: 1.85 m2 Heart Rate: bpm BP: 143 / 73 mmHg Instructional Materials Director: SHIRLEY Referring MD: Mariam Leong MD Symptoms: New onset AFib, pulmonary edema Study Quality: Adequate ECG Rhythm: Atrial Fibrillation Conclusions: - Normal left ventricular size and systolic function. There is moderately increased left ventricular wall thickness. The visually estimated ejection fraction is between 55-60%. - Mildly increased right ventricular cavity size. There is normal right ventricular systolic function. - The left atrium is moderately dilated. - Mild pulmonary hypertension is present. Coding Level of Care Code Est Pt Level 4 (41018) Diagnoses Hospital discharge follow-up Z09 New onset a-fib I48.91 Congestive heart failure I50.9 Assessment & Plan Assessment & Plan (1) Hospital discharge follow-up: Code(s): Z09 - Encounter for follow-up examination after completed treatment for conditions other than malignant neoplasm Category: Medical Plan: Plan Patient was informed and verbally consented to the use of an ambient scribe for clinic note documentation during this visit Atrial Fibrillation - Continue current medications: Lasix and Eliquis. - Monitor for symptoms of bleeding due to Eliquis, such as prolonged bleeding from cuts or head injuries. If you sustain a head injury, please go to the ED for evaluation. - Follow-up appointments scheduled with cardiology and PCP. (2) New onset a-fib: Code(s): I48.91 - Unspecified atrial fibrillation Category: Medical Plan: as above (3) Congestive heart failure: Code(s): I50.9 - Heart failure, unspecified Category: Medical Plan: as above
[2025-07-22 11:51] VITALS: BP 122/64; PULSE 82; RESP 16; TEMP 36.6; O2SAT 99; BMI 25.8
--- OUTSIDE RECORDS SUMMARY | 2025-07-22 16:01 | XMS_ITS | Patient Health Record ---
Author Organization [facility] Address [address] [place] [address] Care Team Providers Care Acid Maker Name Role Phone Virgilio VORA, Francia Primary Care Provider Blas Motta Unavailable [phone] Reason For Referral No Information Medications Medication [...] Problem Status W/U Status Risk Notes Problem [id number] Encounter for screening for malignant neoplasm of colon (Z12.11) Active confirmed Problem [id number] Aspirin long-term use (Z79.82) Active confirmed Plan Of Treatment Future Test Test Name Order Date COLONOSCOPY 02/25/2018 Insurance Providers Payer Name Payer Address Payer Phone Subscriber Number Group Number Insured Name Patient Relationship to Insured Coverage Start Date Coverage End Date MEDICARE OF [place] [address] [place] [address] [id number] LORRAINE RUSSELL Self - patient is the [facility] DO NOT USE [facility] CLAIMS USE [facility] [id number] [place] [address] [id number] LORRAINE RUSSELL Self - patient is the insured Medical (General) History Medical History History ICD Code Denies [place],DM,CVA,Lung disease,renal dise ase Hyperlipidemia HTN Describes a negative colonos copy approx 20 yrs ago at [facility] with Dr. Yost Surgical History Surgery Date(Month/Year) Leg veins Right rotator cuff
== END 2025-07-22 13:00 | disposition home or self-care (01) ==
LOC: HO.HMCC 11:41
PROVIDERS: PCP Internal Medicine; Visit Provider Physician Assistant
DX: Z09 Encounter for follow-up examination after completed treatment for conditions other than malignant neoplasm (principal); I48.91 Unspecified atrial fibrillation; I50.9 Heart failure, unspecified

== ENCOUNTER → 2025-07-22 11:40 | Outpatient (BNVA) | payer MEDICARE, OTHER, SELFPAY | PROVIDERS: PCP Internal Medicine; Visit Provider Physician Assistant | DX: J81.1 Chronic pulmonary edema (principal); I48.91 Unspecified atrial fibrillation; I50.9 Heart failure, unspecified; Z09 Encounter for follow-up examination after completed treatment for conditions other than malignant neoplasm; Z79.01 Long term (current) use of anticoagulants; Z79.899 Other long term (current) drug therapy | CPT/HCPCS: 99212 ==

== ENCOUNTER 2025-08-10 13:04 | Outpatient (AMB) | payer MEDICARE, OTHER, SELFPAY ==
--- NOTE | 2025-08-10 13:26 | MHC.OFFVIS ---
Vital Signs 08/10/25 13:27 Height 5 ft 6 in Weight 159 lb 2.78 oz BMI 25.7 BP 100/62 Blood Pressure Location Lt brachial Position Sitting Pulse 76 Pulse Source Monitor Intake Visit Reasons: ED follow up/New onset Afib and CHF (KM) Talent Development Manager Required: No Allergies cephalexin Allergy (Intermediate, Verified 08/10/25 13:31) facial rash celecoxib (Celebrex) Allergy (Unknown, Verified 08/10/25 13:31) patient unsure what reaction was Medication List - Last Reconciled 08/10/25 by Stacy Singer TEACHERS' AIDE-C apixaban (Eliquis) 5 mg PO BID 30 days cholecalciferol (vitamin D3) 50 mcg PO DAILY furosemide 40 mg See Protocol PO DAILY 30 days latanoprost 0.005% 1 drp ophthalmic (eye) BEDTIME metformin ER 500 mg PO DAILY metoprolol succinate ER 100 mg PO DAILY prednisone 10 mg PO DIRECTED simvastatin 20 mg PO BEDTIME HPI HPI ED follow up/New onset Afib and CHF (KM): Details: Izzy is a 79-year-old female with past medical history of hypertension, hyperlipidemia, diabetes who was recently admitted to [facility] with increased shortness of breath and treated for Congestive heart failure and new finding of AFib RVR. She was treated with heart rate control and diuresed with IV Lasix. She was discharged with metoprolol, Eliquis and Lasix. She now presents for follow-up. Today she reports that she is feeling better since prior to her hospital admission. She describes having shortness of breath for approximately 2 months before going to the hospital. She now reports some mild weakness but otherwise feels well. Her breathing is back to normal. No PND, orthopnea or edema. No chest discomfort at rest or with activity. No heart palpitations, lightheadedness, presyncope, syncope, falls. No bleeding issues with Eliquis use. Taking meds as directed. Daughter is present. [facility] Medical History Refused influenza vaccine COVID-19 vaccine series completed Rotator cuff tear arthropathy of right shoulder Spondylolisthesis of lumbar region Osteopenia of left femoral neck Menopause Generalized anxiety disorder Essential hypertension Dyslipidemia Type 2 diabetes mellitus without complication, without long-term current use of insulin Surgical History Mass of left forearm Hx of varicose vein ligation History of repair of right rotator cuff History of colonoscopy Family History Father CVD (cardiovascular disease) Myocardial infarction Mother History of CVA (cerebrovascular accident) Stroke Brother HTN (hypertension) Hyperlipidemia Diabetes mellitus Brother No problems noted. Son No problems noted. Daughter No problems noted. Social History Household Members: Other Household Members Other:: granddaughter Housing: House Are you a primary care coordinator to a significant other at home: No Do you presently have visiting nurse or other home services: No Comment: Patient is Ind Patient Tobacco Use Status: Never used Tobacco e-Cigarette/Vaping Use: Never Used Second Hand Smoke Exposure: No service: No Current occupational status: retired Current occupation: [employer] Cognitive needs: No Hearing needs: No Vision needs: Yes Review of Systems Const All systems reviewed & are unremarkable except as noted in HPI and below ENT Denies dizziness Card Denies chest pain, Denies chest pain at rest, Denies chest pain with activity, Denies rapid heart rate, Denies pedal edema, Denies edema, Denies leg edema, Denies lightheadedness, Denies palpitations, Denies dyspnea, Denies dyspnea on exertion and Denies orthopnea Resp Denies cough, Denies dyspnea and Denies dyspnea on exertion GI Denies hematochezia and Denies change in stool character Musc Denies abnormal gait, Denies limited range of motion, Denies muscle cramps, Denies muscle weakness, Denies numbness, Denies radiating pain into limb, Denies stiffness and Denies tingling Neuro Denies abnormal gait, Denies dizziness, Denies numbness and Denies tingling Endo Denies palpitations Physical Exam Vital Signs: Last Vital Signs Pulse 76 08/10/25 13:27 BP 100/62 08/10/25 13:27 BMI result Body Mass Index 25.7 Const General: cooperative, healthy appearing, comfortable and no acute distress Orientation/consciousness: patient oriented x3 Neck Neck: Yes normal visual inspection Resp Effort & Inspection: normal respiratory effort Auscultation: clear to auscultation bilaterally, no rales, no rhonchi and no wheezes Cardio Jugular venous distension: no JVD Rate: regular rate Rhythm: abnormal rhythm Heart sounds: S1 normal heart sound present, S2 normal heart sound present, no gallops, no murmurs and no rubs Peripheral pulses: Peripheral pulses 2+ throughout Neuro General: patient oriented x3 Extrem General: Yes normal to inspection and No no pedal edema Psych Appearance: grossly normal Mental Status: mental status grossly normal Speech and movement: Normal speech and movement present Office Procedures EKG Details: Today, read by me, atrial fibrillation, 3 PVCs, rate 76 [id number], Complete Assessment & Plan Assessment & Plan (1) Congestive heart failure: Code(s): I50.9 - Heart failure, unspecified Category: Medical Plan: Recent [facility] admission for increased shortness of breath, Congestive heart failure, new AFib. BNP elevated at 1 563. Echocardiogram showed EF 55-60%, left atrium moderately dilated, right atrium likely dilated, mild pulmonary hypertension.. CTA of the chest did show small bilateral effusions and pulmonary edema. She was given IV Lasix and diuresed. Discharged with Lasix 40 mg daily. She is down 8 lb since her hospital admission. She is reporting dry mouth at times blood pressure is low today. Will have her reduce Lasix to 20 mg daily. Will check labs including BMP and BNP at upcoming lab draw. Signs and symptoms of heart failure reviewed with her. (2) New onset a-fib: Code(s): I48.91 - Unspecified atrial fibrillation Category: Medical Plan: New finding of atrial fibrillation with RVR during recent hospital admission. She was treated with heart rate control and put on metoprolol XL 100 mg daily. EKG today showing atrial fibrillation, 3 PVCs on EKG tracing, rate 76. She is not noticing heart palpitations. She has been on anticoagulation without interruption since 07/17/2025. Will arrange for outpatient cardioversion after 1 month of anticoagulation use. Procedure reviewed with her in detail including risks and expected outcome and she is agreeable to proceed. Continue metoprolol and Eliquis. Cardiology follow-up 2 weeks post cardioversion. (3) Essential hypertension: Code(s): I10 - Essential (primary) hypertension Category: Medical Plan: Blood pressure goal less than 130/80. Blood pressure on low side today. Reducing Lasix. Continue metoprolol. (4) Hospital discharge follow-up: Code(s): Z09 - Encounter for follow-up examination after completed treatment for conditions other than malignant neoplasm Category: Medical Plan: Hospital discharge summary and cardiology notes reviewed. Plan Time spent on chart review, documentation, interview assessment. Orders: Orders NT Pro B Type Natriuretic Pept Today I48.91 - Unspecified atrial fibrillation, I50.9 - Heart failure, unspecified Basic Metabolic Panel Today I48.91 - Unspecified atrial fibrillation, I50.9 - Heart failure, unspecified Cardioversion 1 Week I48.91 - Unspecified atrial fibrillation Medications: New furosemide (Lasix) dose reduced 20 mg PO DAILY 30 tabs 1RF Discontinued furosemide Discontinued Reason: Doctor's Order 40 mg See Protocol PO DAILY 30 days 30 tabs 0RF Coding Level of Care Code Est Pt Level 4 (58043) Complex EM visit Add On G2211 Diagnoses Congestive heart failure I50.9 New onset a-fib I48.91 Essential hypertension I10 Hospital discharge follow-up Z09 CPT Codes EKG - CPT: 06755-[id number], Complete ([id number]) Time Spent (min) 32
[2025-08-10 13:27] VITALS: BP 100/62; PULSE 76; BMI 25.7
--- OUTSIDE RECORDS SUMMARY | 2025-08-10 14:17 | XMS_ITS | Patient Health Record ---
Author Organization [facility] Address [address] [place] [address] Care Team Providers Care Crepe Machine Operator Name Role Phone Virgilio VORA, Francia Primary Care Provider Blas Motta Unavailable [phone] Reason For Referral No Information Medications Medication [...] Problem Status W/U Status Risk Notes Problem [id number] Encounter for screening for malignant neoplasm of colon (Z12.11) Active confirmed Problem 432935165 Aspirin long-term use (Z79.82) Active confirmed Plan Of Treatment Future Test Test Name Order Date COLONOSCOPY 02/25/2018 Insurance Providers Payer Name Payer Address Payer Phone Subscriber Number Group Number Insured Name Patient Relationship to Insured Coverage Start Date Coverage End Date [place] OF [place] [address] [place] [address] [id number] LORRAINE RUSSELL Self - patient is the [facility] DO NOT USE [facility] CLAIMS USE [facility] [id number] [place] [address] [id number] LORRAINE RUSSELL Self - patient is the insured Medical (General) History Medical History History ICD Code Denies [place],DM,CVA,Lung disease,renal dise ase Hyperlipidemia HTN Describes a negative colonos copy approx 20 yrs ago at [facility] with Dr. Yost Surgical History Surgery Date(Month/Year) Leg veins Right rotator cuff
== END 2025-08-10 14:31 | disposition home or self-care (01) ==
LOC: HO.HCS 13:05
PROVIDERS: PCP Internal Medicine; Visit Provider Nurse Practitioner Family
DX: I50.9 Heart failure, unspecified (principal); I48.91 Unspecified atrial fibrillation; I10 Essential (primary) hypertension; Z09 Encounter for follow-up examination after completed treatment for conditions other than malignant neoplasm
CPT/HCPCS: 93010; 99214; G2211

== ENCOUNTER → 2025-08-10 13:04 | Outpatient (BNVA) | payer MEDICARE, OTHER, SELFPAY | PROVIDERS: PCP Internal Medicine; Visit Provider Nurse Practitioner Family | DX: Z09 Encounter for follow-up examination after completed treatment for conditions other than malignant neoplasm (principal); I10 Essential (primary) hypertension; I48.91 Unspecified atrial fibrillation; I50.9 Heart failure, unspecified; R06.02 Shortness of breath | CPT/HCPCS: 93005; 99212 ==

== ENCOUNTER 2025-08-16 08:46 | Outpatient (REF) | payer MEDICARE, OTHER, SELFPAY ==
--- OUTSIDE RECORDS SUMMARY | 2025-08-16 09:35 | XMS_ITS | Patient Health Record ---
Author Organization [facility] Address [address] [place] [address] Care Team Providers Care Patient Safety Manager Name Role Phone Virgilio VORA, Francia Primary Care Provider Blas Motta Unavailable [phone] Reason For Referral No Information Medications Medication [...] Problem Status W/U Status Risk Notes Problem [id number] Encounter for screening for malignant neoplasm of colon (Z12.11) Active confirmed Problem 351927948 Aspirin long-term use (Z79.82) Active confirmed Plan Of Treatment Future Test Test Name Order Date COLONOSCOPY 02/25/2018 Insurance Providers Payer Name Payer Address Payer Phone Subscriber Number Group Number Insured Name Patient Relationship to Insured Coverage Start Date Coverage End Date MEDICARE OF [place] [address] [place] [address] [id number] LORRAINE RUSSELL Self - patient is the insured [facility] DO NOT USE [facility] CLAIMS USE [facility] [id number] [place] [address] [id number] LORRAINE RUSSELL Self - patient is the insured Medical (General) History Medical History History ICD Code Denies [place],DM,CVA,Lung disease,renal dise ase Hyperlipidemia HTN Describes a negative colonos copy approx 20 yrs ago at [facility] with Dr. Yost Surgical History Surgery Date(Month/Year) Leg veins Right rotator cuff
[2025-08-16 14:00] LABS: Alanine Aminotransferase 25 U/L (0-31); Anion Gap 12 (12-20); Aspartate Amino Transferase 27 U/L (5-31); Blood Urea Nitrogen 24 mg/dL (9-16); Calcium 9.8 mg/dL (8.4-10.2); Carbon Dioxide 31 mmol/L (22-29); Chloride 103 mmol/L (96-108); Cholesterol 149 mg/dL (<200); Estimated Glomerular Filt Rate 57; HDL Cholesterol 57 mg/dL (>40); Potassium 4.1 mmol/L (3.3-5.1); Sodium 142 mmol/L (135-145); Triglycerides 153 mg/dL (<150)
[2025-08-16 17:46] LABS: Folate 11.6 ng/mL (> or = 4.0); Vitamin B12 691 pg/mL (200-900)
== END 2025-08-16 08:47 | disposition home or self-care (01) ==
LOC: HO.HMGCLDS 08:46
PROVIDERS: PCP Internal Medicine; Referring Provider Nurse Practitioner Family; Visit Provider Internal Medicine
DX: E11.9 Type 2 diabetes mellitus without complications (principal); M85.852 Other specified disorders of bone density and structure, left thigh; E78.5 Hyperlipidemia, unspecified; I10 Essential (primary) hypertension; Z78.0 Asymptomatic menopausal state
CPT/HCPCS: 36415; 80048; 80061; 82306; 82607; 82746; 83036; 84450; 84460

== ENCOUNTER 2025-08-19 10:52 | Outpatient (AMB) | payer MEDICARE, OTHER, SELFPAY ==
[2025-08-19 11:16] VITALS: BP 110/68; PULSE 61; RESP 16; TEMP 36.6; O2SAT 97; BMI 25.2
--- NOTE | 2025-08-19 11:16 | MHC.PC.OV ---
Vital Signs 08/19/25 11:16 Height 5 ft 6 in Weight 156 lb BMI 25.2 BP 110/68 Blood Pressure Location Rt brachial Position Sitting Respiration 16 Pulse 61 Pulse Source Pulse Oximeter Temp 97.9 F Temp Source Oral Pulse Oximetry (%) 97 Oxygen Delivery Method Room Air Intake Visit Reasons: Follow-up DM, lipids Intake Note: Pt is here today for f/u DM and lipids Allergies cephalexin Allergy (Intermediate, Verified 08/19/25 11:27) facial rash celecoxib (Celebrex) Allergy (Unknown, Verified 08/19/25 11:27) patient unsure what reaction was Medication List - Last Reconciled 08/19/25 by Francia Poole MD apixaban (Eliquis) 5 mg PO BID 30 days cholecalciferol (vitamin D3) 50 mcg PO DAILY furosemide (Lasix) 20 mg PO DAILY latanoprost 0.005% 1 drp ophthalmic (eye) BEDTIME metformin ER 500 mg PO DAILY metoprolol succinate ER 100 mg PO DAILY prednisone 10 mg PO DIRECTED simvastatin 20 mg PO BEDTIME Tobacco use date assessed: 08/18/25 Fall risk assessment: No Falls in past year Last assessed Fall Risk: 08/19/25 Dental Screening Dental Screen Date: 08/19/25 Did you have a dental visit in the last 12 months?: No Did you have a dental problem in the last 6 months where you did not have access to dental care?: No Was dental information given to patient?: Patient declined HPI Follow-up DM, lipids HPI Details 79-year-old lady with hypertension, diabetes mellitus and dyslipidemia, here today for her follow-up. Has been compliant with taking her medications, stays active, has no new complaints at present time. Latest fasting labs showed hemoglobin A1c at 7% with fasting lipids within normal limits. Urine microalbuminuria screening is negative. Blood pressure is controlled on present medication with metoprolol succinate ER 100 mg daily and furosemide 20 mg once a day. Has dyslipidemia with latest fasting labs showed lipids within normal limits, continued on simvastatin 20 mg at bedtime Recently diagnosed to have atrial fibrillation, started on Eliquis 5 mg 1 tablet twice a day and metoprolol succinate ER 100 mg daily. Patient denies any chest pain, no palpitations or shortness of breath, no dizziness. Currently being followed by Cardiology [facility] Medical History Refused influenza vaccine COVID-19 vaccine series completed Rotator cuff tear arthropathy of right shoulder Spondylolisthesis of lumbar region Osteopenia of left femoral neck Menopause Generalized anxiety disorder Essential hypertension Dyslipidemia Type 2 diabetes mellitus without complication, without long-term current use of insulin Surgical History Mass of left forearm Hx of varicose vein ligation History of repair of right rotator cuff History of colonoscopy Family History Father CVD (cardiovascular disease) Myocardial infarction Mother History of CVA (cerebrovascular accident) Stroke Brother HTN (hypertension) Hyperlipidemia Diabetes mellitus Brother No problems noted. Son No problems noted. Daughter No problems noted. Social History Household Members: Other Household Members Other:: granddaughter Housing: House Are you a primary cardiac care unit nurse to a significant other at home: No Do you presently have visiting nurse or other home services: No Comment: Patient is Ind Patient Tobacco Use Status: Never used Tobacco e-Cigarette/Vaping Use: Never Used Second Hand Smoke Exposure: No service: No Current occupational status: retired Current occupation: [employer] Cognitive needs: No Hearing needs: No Vision needs: Yes Questionnaire PHQ-9 Over the last 2 weeks, how often have you been bothered by any of the following problems? 1. Little interest or pleasure in doing things: not at all 2. Feeling down, depressed, or hopeless: not at all 3. Trouble falling or staying asleep, or sleeping too much: not at all 4. Feeling tired or having little energy: not at all 5. Poor appetite or overeating: not at all 6. Feeling bad about yourself - or that you are a failure or have let yourself or your family down: not at all 7. Trouble concentrating on things, such as reading the newspaper or watching television: not at all 8. Moving or speaking so slowly that other people could have noticed. Or the opposite - being so fidgety or restless that you have been moving around a lot more than usual: not at all 9. Thoughts that you would be better off or of hurting yourself in some way: not at all Total score: 0 Depression Screening Interpretation: Negative Depression Screening Done: Yes Source: Developed by Drs. Blas Mahajan, Wayne Snider and colleagues, with an educational pepe from [employer]. Thrive Questionnaire Date Thrive assessed: 12/08/24 Currently or been in a relationship where the following occur: No concerns reported THRIVE Score: 0 AUDIT C Alcohol Use Questionnaire (AUDIT-C) 1. How often do you have a drink containing alcohol?: Never Total Score: 0 ADELITA-7 AMB Questionnaire ADELITA-7 Date ADELITA - 7 assessed: 12/08/24 Source: Developed by Pat Barrientos Kurt Kroenke and colleagues, with an educational pepe from [employer]. Review of Systems Const Reports no additional complaints Eyes Details: [facility] ENT Reports no additional complaints Card Denies chest pain at rest, Denies chest pain with activity, Denies rapid heart rate, Denies pedal edema and Denies dyspnea Resp Denies chest congestion, Denies cough and Denies dyspnea GI Denies abdominal pain, Denies belching and Denies melena Denies hematuria, Denies urinary frequency, Denies difficulty voiding, Denies hot flashes, Denies dysuria and Denies urinary incontinence Musc Reports no additional complaints Neuro Denies Sensory deficit (Neuro) Psych Reports no additional complaints Endo Reports no additional complaints Clinton/Lymph Reports no additional complaints Aller/Immun Reports no additional complaints Physical exam (Primary Care) Vital Signs: Last Vital Signs Temp 97.9 F 08/19/25 11:16 Pulse 61 08/19/25 11:16 Resp 16 08/19/25 11:16 BP 110/68 08/19/25 11:16 Pulse Ox 97 08/19/25 11:16 Oxygen Delivery Method Room Air 08/19/25 11:16 BMI result Body Mass Index 25.2 Tobacco/Smoking Status: Tobacco use Status Tobacco use date assessed 08/18/25 08/19/25 11:22 Patient Tobacco Use Status Never used Tobacco 08/19/25 11:16 e-Cigarette/Vaping Use Never Used 08/19/25 11:16 PHQ-9: PHQ-9 Score PHQ-9: Total score 0 08/19/25 11:26 Depression Screening Interpretation: Negative Thrive Assessment: Date of Thrive Assessment Date Thrive assessed 12/08/24 08/19/25 11:16 Currently or been in a relationship where the following occur: No concerns reported Const Other: Alert oriented x3, no acute cardiorespiratory distress noted ambulatory normal gait HENMT Head: Yes normocephalic Ears: external ears normal Face and sinus: Yes face symmetric Mouth: Normal oral and palatal mucosa present, oropharynx normal and moist mucous membranes Eyes General: appearance normal, both eyes and all related structures Neck Neck: Yes supple Resp Auscultation: clear to auscultation bilaterally Cardio Other: S1-S2 present regular rate and rhythm General: Yes no CVA tenderness Back/Spine/Pelvis Back: no CVA tenderness and No back tenderness Skin General skin exam: no rashes or lesions noted Neuro General: gait normal, tone normal, moves all extremities and no focal motor deficits Sensory Exam: No Sensory deficit (Neuro) Extrem General: Yes full ROM, Yes no joint enlargement, Yes no clubbing, cyanosis or edema and Yes normal gait Psych Appearance: grossly normal and well kempt Mental Status: mental status grossly normal Speech and movement: Normal speech and movement present Affect: normal affect Results Reviewed Results Reviewed: Name: Izzy Gambino Age/Sex: 79/F [facility] 1945 [id number]#: [id number] Attend Dr: Haylee Nava MD Re07/16/25 Status: DIS IN Location: [facility] 487-1 Disch: 07/18/25 SPEC : [id number] JONY: 07/18/25 STATUS: COMP REQ : [id number] RECD: 07/18/[address]: Haylee Nava MD COMP: 07/18/25 ENTERED: 07/18/[address]: Francia Poole MD ORDERED: CBC Auto Diff Test Result Flag Reference WBC 4.8 4.8-10.8 X10*3/uL RBC 4.78 4.20-5.50 X10*6/uL HGB 13.6 12.0-16.0 g/dl HCT 40.2 37.0-47.0 % MCV 84.1 80.0-98.0 fL MCH 28.5 27.0-33.0 pg MCHC 33.8 31.0-35.0 g/dl RDW 14.6 11.0-16.0 % PLT 278 160-400 X10*3/uL MPV 10.5 9.4-12.3 fL Neut Pct Auto 51.4 45-73 % ImGran Pct Auto 0.2 0.0-0.4 % Lymp Pct Auto 28.3 20-40 % [place] Pct Auto 14.7 H 2-11 % Eos Pct Auto 4.8 H 0-4 % Baso Pct Auto 0.6 0-2 % NRBC Pct Auto 0.0 0.0-0.2 /100WBC ANC Neut Abs # 2.5 2.0-8.3 x10*3/uL ImGran Abs Auto 0.01 0.00-0.03 X10*3/uL Lymph Abs Auto 1.4 1.2-4.9 X10*3/uL [place] Abs Auto 0.7 0.1-1.2 X10*3/uL Eos Abs Auto 0.2 0.0-0.4 X10*3/uL Baso Abs Auto 0.0 0.0-0.2 X10*3/uL NRBC Abs Auto 0.000 0.0-0.012 X10*3/uL Name: Izzy Gambino Age/Sex: 79/F : 1945 Unit#: [id number] Attend Dr: Francia Poole MD Re08/16/25 Status: DEP REF Location: [facility] Disch: SPEC : [id number] JONY: 08/16/25 STATUS: COMP REQ : [id number] RECD: 08/16/[address]: Francia Poole MD COMP: 08/16/25 ENTERED: 08/16/25 [facility] DR: ORDERED: Met Prof Fast, AST, ALT, Lipid Panel, Vitamin D 25-OH Test Result Flag Reference Sodium 142 135-145 mmol/L Potassium 4.1 3.3-5.1 mmol/L CL 103 96-108 mmol/L CO2 31 H 22-29 mmol/L Gap 12 12-20 BUN 24 H 9-16 mg/dL Creat 0.95 0.5-1.4 mg/dL eGFR 57 Chronic Kidney Disease: Estimated GFR < 60 mL/min/1.73m2 Severe Kidney Disease: Estimated GFR < 15 mL/min/1.73m2 FBS 116 H 60-99 mg/dL A fasting glucose from 100-125 mg/dl is considered impaired (pre-diabetes). CA 9.8 8.4-10.2 mg/dL AST (GOT) 27 5-31 U/L ALT (GPT) 25 0-31 U/L Triglyceride 153 H <150 mg/dL Desirable Triglyceride: less than 150 mg/dL Borderline High Triglyceride 150-199 mg/dL High Triglyceride: 200-499 mg/dL Very High Triglyceride: greater than or equal to 5OO mg/dL Cholesterol 149 <200 mg/dL Desirable Cholesterol: less than 200 mg/dL Borderline High Cholesterol: 200-239 mg/dL High Cholesterol: greater than 239 mg/dL LDL Calculated 62 <100 mg/dL Desirable LDL: less than 100 mg/dL Near Optimal/Above Optimal LDL: 110-129 mg/dL Borderline High LDL: 130-159 mg/dL High LDL: 160-189 mg/dL Very High LDL: greater than or equal to 190 mg/dL HDL 57 >40 mg/dL Desirable HDL: greater than 40 mg/dL Note: This HDL assay may give artificially low results in patients with liver disease. Vitamin D 25-OH 112.5 >30 ng/mL Health Based Reference Values* < 20 ng/mL Deficient 20-30 ng/mL Insufficient > 30 ng/mL Sufficient Laboratory Tests 03/25/25 08/16/25 08:54 09:45 Estimat Average Glucose 154 Hemoglobin A1c % 7.0 H Microalb/Creat Ratio 13.0 Coding Level of Care Code Est Pt Level 4 (27531) Complex EM visit Add On G2211 Diagnoses Type 2 diabetes mellitus without complication, without long-term current use of insulin E11.9 Dyslipidemia E78.5 Essential hypertension I10 Refused influenza vaccine Z28.21 New onset a-fib I48.91 Assessment & Plan Assessment & Plan (1) Type 2 diabetes mellitus without complication, without long-term current use of insulin: Comment: taking metformin once/day-does not check glucose at home Code(s): E11.9 - Type 2 diabetes mellitus without complications Category: Medical Plan: Recent lab results reviewed with patient, with sugar and hemoglobin A1c stable at 7%. Continue metformin ER 500 mg daily continue to check fasting blood sugar at home, maintain log and bring to next appointment for review. Reinforced diabetic diet and regular exercise with patient. Counseled regarding importance of yearly diabetes retinopathy screening. Patient advised to inspect feet daily, for any signs of injury, callus or infection. Compliance with diet and regular exercise again stressed. Blood pressure goal is less than 130/80, goal LDL is less than 100 and goal hemoglobin A1c is less than 7% follow-up appointment made in-3--months, after fasting labs done. (2) Dyslipidemia: Code(s): E78.5 - Hyperlipidemia, unspecified Category: Medical Plan: Has not lipids are within normal limits, continued on simvastatin 20 mg daily at bedtime, recheck fasting lipids again in 3 months (3) Essential hypertension: Code(s): I10 - Essential (primary) hypertension Category: Medical Plan: Blood pressure at goal of less than 130/80. Continue with metoprolol succinate ER 100 mg daily and furosemide 20 mg daily. Reinforced importance of following a low sodium diet, getting regular exercise, and lowering stress levels. (4) Refused influenza vaccine: Code(s): Z28.21 - Immunization not carried out because of patient refusal Category: Medical Plan: Declined flu shot (5) New onset a-fib: Code(s): I48.91 - Unspecified atrial fibrillation Category: Medical Plan: Followed by cardiology currently on Eliquis 5 mg 1 tablet twice a day and metoprolol succinate ER 100 mg daily. Patient currently asymptomatic. Scheduled for cardioversion sometime next month after receiving 1 month of anticoagulation Orders: Orders Lipid Panel 3 Months E11.9 - Type 2 diabetes mellitus without complications, E78.5 - Hyperlipidemia, unspecified, I10 - Essential (primary) hypertension, I48.91 - Unspecified atrial fibrillation, Z28.21 - Immunization not carried out because of patient refusal Hemoglobin A1c 3 Months E11.9 - Type 2 diabetes mellitus without complications, E78.5 - Hyperlipidemia, unspecified, I10 - Essential (primary) hypertension, I48.91 - Unspecified atrial fibrillation, Z28.21 - Immunization not carried out because of patient refusal Aspartate Amino Transferase 3 Months E11.9 - Type 2 diabetes mellitus without complications, E78.5 - Hyperlipidemia, unspecified, I10 - Essential (primary) hypertension, I48.91 - Unspecified atrial fibrillation, Z28.21 - Immunization not carried out because of patient refusal Basic Metabolic Panel Fasting 3 Months E11.9 - Type 2 diabetes mellitus without complications, E78.5 - Hyperlipidemia, unspecified, I10 - Essential (primary) hypertension, I48.91 - Unspecified atrial fibrillation, Z28.21 - Immunization not carried out because of patient refusal Alanine Aminotransferase 3 Months E11.9 - Type 2 diabetes mellitus without complications, E78.5 - Hyperlipidemia, unspecified, I10 - Essential (primary) hypertension, I48.91 - Unspecified atrial fibrillation, Z28.21 - Immunization not carried out because of patient refusal
== END 2025-08-19 11:52 | disposition home or self-care (01) ==
LOC: HO.HMCC 10:53
PROVIDERS: PCP Internal Medicine; Visit Provider Internal Medicine
DX: E11.9 Type 2 diabetes mellitus without complications (principal); E78.5 Hyperlipidemia, unspecified; I10 Essential (primary) hypertension; Z28.21 Immunization not carried out because of patient refusal; I48.91 Unspecified atrial fibrillation

== ENCOUNTER → 2025-08-19 10:52 | Outpatient (BNVA) | payer MEDICARE, OTHER, SELFPAY | PROVIDERS: PCP Internal Medicine; Visit Provider Internal Medicine | DX: I10 Essential (primary) hypertension (principal); E11.9 Type 2 diabetes mellitus without complications; E78.5 Hyperlipidemia, unspecified; I48.91 Unspecified atrial fibrillation; Z79.01 Long term (current) use of anticoagulants | CPT/HCPCS: 96127; 99212 ==

== ENCOUNTER 2025-08-24 10:10 | Day surgery (SDC) | payer MEDICARE, OTHER, SELFPAY ==
--- NOTE | 2025-08-20 08:10 | HO.ANESPROP2 ---
Documented by User: Christine Burdick NP 08/20/25 08:13 HPI - Anesthesia Eval Consult details Narrative: 79yo F for Cardioversion Eliquis for afib (new onset 07/2025) [facility] Active Problems Active Problems: All Active Problems Hospital discharge follow-up (Acute) Congestive heart failure (Acute) New onset a-fib (Acute) Fatigue (Acute) Refused influenza vaccine (Acute) Lumbar radiculopathy (Acute) Type 2 diabetes mellitus without complication, without long-term current use of insulin (Acute) Osteopenia of left femoral neck (Acute) Essential hypertension (Acute) Dyslipidemia (Acute) Status post reverse total arthroplasty of right shoulder (Acute) Menopause (Acute) Past Medical History Medical History Refused influenza vaccine COVID-19 vaccine series completed Rotator cuff tear arthropathy of right shoulder Spondylolisthesis of lumbar region Osteopenia of left femoral neck Menopause Generalized anxiety disorder Essential hypertension Dyslipidemia Type 2 diabetes mellitus without complication, without long-term current use of insulin Family History Family History Father CVD (cardiovascular disease) Myocardial infarction Mother History of CVA (cerebrovascular accident) Stroke Brother HTN (hypertension) Hyperlipidemia Diabetes mellitus Brother No problems noted. Son No problems noted. Daughter No problems noted. Family history of problems with anesthesia: No Surgical History Surgical History Mass of left forearm Hx of varicose vein ligation History of repair of right rotator cuff History of colonoscopy History of Problems with Anesthesia: No Social History Social History Household Members: Other Household Members Other:: granddaughter Housing: House Are you a primary critical care physician assistant to a significant other at home: No Do you presently have visiting nurse or other home services: No Comment: Patient is Ind Patient Tobacco Use Status: Never used Tobacco e-Cigarette/Vaping Use: Never Used Second Hand Smoke Exposure: No service: No Current occupational status: retired Current occupation: [employer] Cognitive needs: No Hearing needs: No Vision needs: Yes Meds Allergies Allergy/AdvReac Type Severity Reaction Status Date / Time cephalexin Allergy Intermediate facial rash Verified 08/19/25 11:27 celecoxib (Celebrex) Allergy Unknown patient Verified 08/19/25 11:27 unsure what reaction was Home Medications ?Medication ?Instructions ?Recorded ?Confirmed ?Last Taken ?Type cholecalciferol (vitamin D3) 50 50 mcg PO DAILY 11/03/20 08/10/25 07/16/25 History mcg (2,000 unit) capsule latanoprost 0.005 % eye drops 1 drp ophthalmic (eye) BEDTIME 07/16/25 08/10/25 07/16/25 History metformin 500 mg tablet,extended 500 mg PO DAILY 07/16/25 08/10/25 07/16/25 History release 24 hr prednisone 10 mg tablet 10 mg PO DIRECTED 08/10/25 08/10/25 Unknown History Exam Pertinent Lab Results Pertinent Lab Results: Laboratory Tests 07/18/25 08/16/25 06:57 09:45 WBC 4.8 Hgb 13.6 Hct 40.2 Plt Count 278 Sodium 142 Potassium 4.1 Chloride 103 Carbon Dioxide 31 H BUN 24 H Creatinine 0.95 Narrative Narrative: EKG 07/2025 atrial fibrillation, 3 PVCs, rate 76 ECHO 07/2025 Conclusions: - Normal left ventricular size and systolic function. There is moderately increased left ventricular wall thickness. The visually estimated ejection fraction is between 55-60%. - Mildly increased right ventricular cavity size. There is normal right ventricular systolic function. - The left atrium is moderately dilated. - Mild pulmonary hypertension is present. Assessment and Plan Assessment Anesthesia Assessment: Chart Reviewed Final Anesthetic Review Family History of Problems with Anesthesia: No History of Problems with Anesthesia: No Documented by User: Shazia Naqvi MD 08/24/25 08:30 [facility] Past Medical History Medical History Refused influenza vaccine COVID-19 vaccine series completed Rotator cuff tear arthropathy of right shoulder Spondylolisthesis of lumbar region Osteopenia of left femoral neck Menopause Generalized anxiety disorder Essential hypertension Dyslipidemia Type 2 diabetes mellitus without complication, without long-term current use of insulin Family History Family History Father CVD (cardiovascular disease) Myocardial infarction Mother History of CVA (cerebrovascular accident) Stroke Brother HTN (hypertension) Hyperlipidemia Diabetes mellitus Brother No problems noted. Son No problems noted. Daughter No problems noted. Surgical History Surgical History Mass of left forearm Hx of varicose vein ligation History of repair of right rotator cuff History of colonoscopy Social History Social History Household Members: Other Household Members Other:: granddaughter Housing: House Are you a primary critical care physician assistant to a significant other at home: No Do you presently have visiting nurse or other home services: No Comment: Patient is Ind Patient Tobacco Use Status: Never used Tobacco e-Cigarette/Vaping Use: Never Used Second Hand Smoke Exposure: No service: No Current occupational status: retired Current occupation: [employer] Cognitive needs: No Hearing needs: No Vision needs: Yes Meds Allergies Allergy/AdvReac Type Severity Reaction Status Date / Time cephalexin Allergy Intermediate facial rash Verified 08/19/25 11:27 celecoxib (Celebrex) Allergy Unknown patient Verified 08/19/25 11:27 unsure what reaction was Home Medications ?Medication ?Instructions ?Recorded ?Confirmed ?Last Taken ?Type cholecalciferol (vitamin D3) 50 50 mcg PO DAILY 11/03/20 08/10/25 07/16/25 History mcg (2,000 unit) capsule latanoprost 0.005 % eye drops 1 drp ophthalmic (eye) BEDTIME 07/16/25 08/10/25 07/16/25 History metformin 500 mg tablet,extended 500 mg PO DAILY 07/16/25 08/10/25 07/16/25 History release 24 hr prednisone 10 mg tablet 10 mg PO DIRECTED 08/10/25 08/10/25 Unknown History Exam Airway Mallampati Class: II TM Dist: >3cm Neck ROM: Limited Heart: af Lungs: cta Assessment and Plan Assessment Anesthesia Assessment: Anesthesia Plan Discussed Final Anesthetic Review NPO: Yes ASA Class: III Final Preanesthetic Review: No Changes in Pt Med Stat, Meds/Allgs Chart Reviewed, Consent Obtained/Reviewed and Anes Risks/Benef Reviewed Patient Risk: Intermediate Procedure Risk: Low Anesthetic Plan Anesthetic Plan: MAC: Disposition: Standard PACU
--- NOTE | 2025-08-24 | ECG_ITS ---
Test Reason : s/p cardioversion Blood Pressure : */* mmHG Vent. Rate : 64 BPM Atrial Rate : * BPM P-R Int : * ms QRS Dur : 74 ms QT Int : 406 ms P-R-T Axes : * -7 12 degrees QTcB Int : 418 ms Atrial fibrillation with premature ventricular or aberrantly conducted complexes Abnormal ECG When compared with ECG of 17-Jul-2025 15:31, Nonspecific T wave abnormality no longer evident in Inferior leads QT has shortened Referred By: Fracisco Quan Electronically Signed By: Fracisco Quan
[2025-08-24 10:36] VITALS: BMI 25.5
[2025-08-24 10:44] VITALS: BP 148/75; PULSE 69; RESP 20; TEMP 36.1; O2SAT 99
[2025-08-24] MEDS: Lactated Ringers 1,000 ML 50 ML IVCONT (10:52)
[2025-08-24 11:00] LABS: Glucose, Whole Blood 130 mg/dL (60-115)
--- NOTE | 2025-08-24 12:10 | MHC.SHP ---
Pre-Procedural Eval Section A - 24 Hr Update-Section A only Date of Service: 08/24/25 The patient is an INPATIENT: No Section B - Complete if H&P > 30 days Chief Complaint: Other persistent atrial fibrillation Details of Present Illness: Here for cardioversion Allergies: Allergies Allergy/AdvReac Type Severity Reaction Status Date / Time cephalexin Allergy Intermediate facial rash Verified 08/19/25 11:27 celecoxib (Celebrex) Allergy Unknown patient Verified 08/19/25 11:27 unsure what reaction was Plan Diagnosis/Plan: Unchanged I have reviewed the history and physical and performed a pertinent physical examination on my patient. No changes have occurred unless specified. Time Spent With Patient Time: Total time managing care of this patient today ____ minutes.
--- NOTE | 2025-08-24 12:28 | HO.CARDIVERS ---
Cardioversion Procedure Note Cardioversion Date of Procedure: 11/24/24 Ordering Provider: Stacy Singer Performing Provider: Florian Quan Indication for Procedure: Afib/CHF Pre-Op Diagnosis: Afib Consent: Verbal and Written consent was obtained from the patient before starting. The patient was made aware of the risk of stroke, failure and cardiac arrest Procedure: After consent obtained, defib pads were attached and the patient was sedated by the anesthesia team. Once adequate sedation achieved, synchronized shock of 150 J followed by 200 J was given. She converted to sinus rhythm but right away converted so Afib Recommendations: Stop Toprol XL Start amiodarone 400 mg BID x 10 days then 200 mg daily. Will re attempt cardioversion in few weeks.
[2025-08-24 12:33] VITALS: BP 118/54; PULSE 60; RESP 12; TEMP 36.7; O2SAT 98
[2025-08-24 12:38] VITALS: BP 113/56; PULSE 75; RESP 19; O2SAT 99
[2025-08-24 12:40] VITALS: BP 111/62; PULSE 71; RESP 19; O2SAT 99
[2025-08-24 12:45] VITALS: BP 112/56; PULSE 60; RESP 16; O2SAT 99
[2025-08-24 13:00] VITALS: BP 122/53; PULSE 71; RESP 16; O2SAT 99
== END 2025-08-24 13:40 | disposition home or self-care (01) ==
PROVIDERS: PCP Internal Medicine; Visit Provider Internal Medicine Cardiovascular Disease
PROC: 5A2204Z Restoration of Cardiac Rhythm, Single (ICD-10-PCS; principal; 2025-08-24 12:30)
DX: I48.19 Other persistent atrial fibrillation (principal); I50.9 Heart failure, unspecified; I11.0 Hypertensive heart disease with heart failure; E78.5 Hyperlipidemia, unspecified; F41.1 Generalized anxiety disorder; Z79.01 Long term (current) use of anticoagulants; Z79.899 Other long term (current) drug therapy
CPT/HCPCS: 82947; 92960; 93005; J0461; J1596

== ENCOUNTER → 2025-08-24 10:10 | Outpatient (BNV) | payer MEDICARE, OTHER, SELFPAY | PROVIDERS: PCP Internal Medicine; Visit Provider Internal Medicine Cardiovascular Disease | DX: I48.91 Unspecified atrial fibrillation (principal) | CPT/HCPCS: 92960; 93010 ==

== ENCOUNTER 2025-10-04 11:57 | Day surgery (SDC) | payer MEDICARE, OTHER, SELFPAY ==
--- NOTE | 2025-09-29 10:51 | HO.ANESPROP2 ---
Documented by User: Tory Waite NP 09/29/25 10:59 HPI - Anesthesia Eval Consult details Narrative: 79 yr old female for cardioversion Atrial fibrillation with RVR: new finding during 07/[address] [facility] admission. She was treated with heart rate control and put on metoprolol XL 100 mg daily. EKG at 07/[address] [facility] cards f/u visit showing atrial fibrillation, 3 PVCs on EKG tracing, rate 76. PT was asymptomatic. Has been on anticoagulation without interruption since 07/17/2025 CHF: Presented to ED 07/2025 with symptoms, see echo below [facility] Active Problems Active Problems: All Active Problems (Updated 08/27/25 @ 10:08 by Stacy Singer NP-C) Atrial fibrillation (Acute) Hospital discharge follow-up (Acute) Congestive heart failure (Acute) New onset a-fib (Acute) Fatigue (Acute) Refused influenza vaccine (Acute) Lumbar radiculopathy (Acute) Type 2 diabetes mellitus without complication, without long-term current use of insulin (Acute) Osteopenia of left femoral neck (Acute) Essential hypertension (Acute) Dyslipidemia (Acute) Status post reverse total arthroplasty of right shoulder (Acute) Menopause (Acute) Past Medical History Medical History History of cardioversion Implantable cardioverter-defibrillator (ICD) at end of battery life Refused influenza vaccine COVID-19 vaccine series completed Rotator cuff tear arthropathy of right shoulder Spondylolisthesis of lumbar region Osteopenia of left femoral neck Menopause Generalized anxiety disorder Essential hypertension Dyslipidemia Type 2 diabetes mellitus without complication, without long-term current use of insulin Family History Family History Father CVD (cardiovascular disease) Myocardial infarction Mother History of CVA (cerebrovascular accident) Stroke Brother HTN (hypertension) Hyperlipidemia Diabetes mellitus Brother No problems noted. Son No problems noted. Daughter No problems noted. Family history of problems with anesthesia: No Surgical History Surgical History Mass of left forearm Hx of varicose vein ligation History of repair of right rotator cuff History of colonoscopy History of Problems with Anesthesia: No Social History Social History Household Members: Other Household Members Other:: granddaughter Housing: House Are you a primary hearing care professional to a significant other at home: No Do you presently have visiting nurse or other home services: No Comment: Patient is Ind Patient Tobacco Use Status: Never used Tobacco e-Cigarette/Vaping Use: Never Used Second Hand Smoke Exposure: No Have you been hit, kicked, punched, or otherwise hurt by someone within the past year? If so, by whom?: No Are you DNR?: No Advance Directives: No Advance Directives Information Provided: Yes service: No Current occupational status: retired Current occupation: [employer] Cognitive needs: No Hearing needs: No Vision needs: Yes Meds Allergies Allergy/AdvReac Type Severity Reaction Status Date / Time cephalexin Allergy Intermediate facial rash Verified 08/19/25 11:27 celecoxib (Celebrex) Allergy Unknown patient Verified 08/19/25 11:27 unsure what reaction was Home Medications ?Medication ?Instructions ?Recorded ?Confirmed ?Last Taken ?Type cholecalciferol (vitamin D3) 50 50 mcg PO DAILY 11/03/20 10/04/25 10/03/25 History mcg (2,000 unit) capsule latanoprost 0.005 % eye drops 1 drp ophthalmic (eye) BEDTIME 07/16/25 10/04/25 10/04/25 History metformin 500 mg tablet,extended 500 mg PO DAILY 07/16/25 10/04/25 10/04/25 History release 24 hr prednisone 10 mg tablet 10 mg PO DIRECTED 08/10/25 10/04/25 10/04/25 History Exam Pertinent Lab Results Pertinent Lab Results: Laboratory Tests 07/18/25 08/16/25 06:57 09:45 WBC 4.8 RBC 4.78 Hgb 13.6 Hct 40.2 Plt Count 278 Sodium 142 Potassium 4.1 Chloride 103 Carbon Dioxide 31 H BUN 24 H Creatinine 0.95 Narrative Narrative: ECHO 07/2025 Conclusions: - Normal left ventricular size and systolic function. There is moderately increased left ventricular wall thickness. The visually estimated ejection fraction is between 55-60%. - Mildly increased right ventricular cavity size. There is normal right ventricular systolic function. - The left atrium is moderately dilated. - Mild pulmonary hypertension is present. Assessment and Plan Final Anesthetic Review Family History of Problems with Anesthesia: No History of Problems with Anesthesia: No Documented by User: Adela Mason MD 10/04/25 13:31 [facility] Past Medical History Medical History History of cardioversion Implantable cardioverter-defibrillator (ICD) at end of battery life Refused influenza vaccine COVID-19 vaccine series completed Rotator cuff tear arthropathy of right shoulder Spondylolisthesis of lumbar region Osteopenia of left femoral neck Menopause Generalized anxiety disorder Essential hypertension Dyslipidemia Type 2 diabetes mellitus without complication, without long-term current use of insulin Family History Family History Father CVD (cardiovascular disease) Myocardial infarction Mother History of CVA (cerebrovascular accident) Stroke Brother HTN (hypertension) Hyperlipidemia Diabetes mellitus Brother No problems noted. Son No problems noted. Daughter No problems noted. Surgical History Surgical History Mass of left forearm Hx of varicose vein ligation History of repair of right rotator cuff History of colonoscopy Social History Social History Household Members: Other Household Members Other:: granddaughter Housing: House Are you a primary hearing care professional to a significant other at home: No Do you presently have visiting nurse or other home services: No Comment: Patient is Ind Patient Tobacco Use Status: Never used Tobacco e-Cigarette/Vaping Use: Never Used Second Hand Smoke Exposure: No Have you been hit, kicked, punched, or otherwise hurt by someone within the past year? If so, by whom?: No Are you DNR?: No Advance Directives: No Advance Directives Information Provided: Yes service: No Current occupational status: retired Current occupation: [employer] Cognitive needs: No Hearing needs: No Vision needs: Yes Meds Allergies Allergy/AdvReac Type Severity Reaction Status Date / Time cephalexin Allergy Intermediate facial rash Verified 08/19/25 11:27 celecoxib (Celebrex) Allergy Unknown patient Verified 08/19/25 11:27 unsure what reaction was Home Medications ?Medication ?Instructions ?Recorded ?Confirmed ?Last Taken ?Type cholecalciferol (vitamin D3) 50 50 mcg PO DAILY 11/03/20 10/04/25 10/03/25 History mcg (2,000 unit) capsule latanoprost 0.005 % eye drops 1 drp ophthalmic (eye) BEDTIME 07/16/25 10/04/25 10/04/25 History metformin 500 mg tablet,extended 500 mg PO DAILY 07/16/25 10/04/25 10/04/25 History release 24 hr prednisone 10 mg tablet 10 mg PO DIRECTED 08/10/25 10/04/25 10/04/25 History Exam Airway Mallampati Class: II TM Dist: >3cm Neck ROM: Full Denture: Upper Loose/Missing/Broken Teeth: Yes, Upper and Lower Heart: RRR Lungs: CTA Assessment and Plan Assessment Anesthesia Assessment: Anesthesia Plan Discussed and Chart Reviewed Final Anesthetic Review NPO: Yes ASA Class: III Final Preanesthetic Review: Meds/Allgs Chart Reviewed, Consent Obtained/Reviewed and Anes Risks/Benef Reviewed Patient Risk: Intermediate Procedure Risk: Intermediate Anesthetic Plan Anesthetic Plan: GA Disposition: Standard PACU
[2025-10-03 10:59] VITALS: BMI 25.3
--- NOTE | 2025-10-04 | ECG_ITS ---
Test Reason : POST CARDIOVERSION Blood Pressure : */* mmHG Vent. Rate : 54 BPM Atrial Rate : 54 BPM P-R Int : 274 ms QRS Dur : 84 ms QT Int : 448 ms P-R-T Axes : 75 -18 30 degrees QTcB Int : 424 ms Sinus bradycardia with 1st degree A-V block Minimal voltage criteria for LVH, may be normal variant ( R in aVL ) Nonspecific T wave abnormality Abnormal ECG When compared with ECG of 24-Aug-2025 12:38, Sinus rhythm has replaced Atrial fibrillation Nonspecific T wave abnormality now evident in Anterior leads Referred By: Fracisco Quan Electronically Signed By: Fracisco Quan
[2025-10-04 12:36] VITALS: BP 135/82; PULSE 67; RESP 20; TEMP 37; O2SAT 96; BMI 24.8
--- NOTE | 2025-10-04 12:40 | MHC.SHP ---
Pre-Procedural Eval Section A - 24 Hr Update-Section A only Date of Service: 10/04/25 The patient is an INPATIENT: No Section B - Complete if H&P > 30 days Chief Complaint: Unspecified atrial fibrillation Details of Present Illness: Here for cardioversion. Allergies: Allergies Allergy/AdvReac Type Severity Reaction Status Date / Time cephalexin Allergy Intermediate facial rash Verified 08/19/25 11:27 celecoxib (Celebrex) Allergy Unknown patient Verified 08/19/25 11:27 unsure what reaction was Plan Diagnosis/Plan: Unchanged I have reviewed the history and physical and performed a pertinent physical examination on my patient. No changes have occurred unless specified. Time Spent With Patient Time: Total time managing care of this patient today ____ minutes.
[2025-10-04] MEDS: Lactated Ringers 1,000 ML 50 ML IVCONT (12:53)
[2025-10-04 13:00] LABS: Glucose, Whole Blood 108 mg/dL (60-115)
--- NOTE | 2025-10-04 13:29 | MHC.SHP ---
Pre-Procedural Eval Section A - 24 Hr Update-Section A only Date of Service: 10/04/25 The patient is an INPATIENT: No Section B - Complete if H&P > 30 days Chief Complaint: Unspecified atrial fibrillation Details of Present Illness: For cardioversion. Relevant Family History (Specify if Yes): No Allergies: Allergies Allergy/AdvReac Type Severity Reaction Status Date / Time cephalexin Allergy Intermediate facial rash Verified 08/19/25 11:27 celecoxib (Celebrex) Allergy Unknown patient Verified 08/19/25 11:27 unsure what reaction was Review of Systems Sugical H&P ROS: Negative: Constitution and Cardiovascular Exam Surgical H&P Exam: Normal: Lungs and Normal: Extremities and Not Evaluated: Heart (Irregularly irregular rhythm) Plan Diagnosis/Plan: Unchanged I have reviewed the history and physical and performed a pertinent physical examination on my patient. No changes have occurred unless specified. Time Spent With Patient Time: Total time managing care of this patient today ____ minutes.
[2025-10-04 13:35] VITALS: BP 138/48; PULSE 56; RESP 18; TEMP 36.6; O2SAT 94
--- NOTE | 2025-10-04 13:35 | HO.CARDIVERS ---
Cardioversion Procedure Note Cardioversion Date of Procedure: 10/04/25 Ordering Provider: Fracisco Quan Performing Provider: Fracisco Quan Indication for Procedure: Persistent Afib, LIDNA. Performed with Transesophageal Echo: No History: 79 female with persistent Afib here for cardioversion. Consent: Verbal and Written consent was obtained from the patient before starting. The patient was made aware of the risk of failure, arrhythmia, skin irritation and stroke. Procedure: After consent obtained, defib pads were attached and the patient was sedated by the anesthesia team. Once adequate sedation achieved, single synchronized shock of 200 J was given. The rhythm converted to sinus rhythm. Complications: None Recommendations: Continue amiodarone and apixaban. No medication changes.
[2025-10-04 13:40] VITALS: BP 93/46; PULSE 50; RESP 17; O2SAT 97
[2025-10-04 13:45] VITALS: BP 104/47; PULSE 52; RESP 16; O2SAT 96
[2025-10-04 13:50] VITALS: BP 100/48; PULSE 51; RESP 14; O2SAT 97
[2025-10-04 14:00] VITALS: BP 124/60; PULSE 55; RESP 13; TEMP 36.8; O2SAT 96
== END 2025-10-04 14:34 | disposition home or self-care (01) ==
PROVIDERS: PCP Internal Medicine; Visit Provider Internal Medicine Cardiovascular Disease
PROC: 5A2204Z Restoration of Cardiac Rhythm, Single (ICD-10-PCS; principal; 2025-10-04 14:00)
DX: I48.19 Other persistent atrial fibrillation (principal); R06.02 Shortness of breath; I11.0 Hypertensive heart disease with heart failure; I50.9 Heart failure, unspecified; E11.8 Type 2 diabetes mellitus with unspecified complications; E78.5 Hyperlipidemia, unspecified; F41.1 Generalized anxiety disorder; Z95.810 Presence of automatic (implantable) cardiac defibrillator; M85.88 Other specified disorders of bone density and structure, other site; Z79.84 Long term (current) use of oral hypoglycemic drugs; Z79.01 Long term (current) use of anticoagulants; Z79.52 Long term (current) use of systemic steroids; Z79.899 Other long term (current) drug therapy; Z88.1 Allergy status to other antibiotic agents; Z88.8 Allergy status to other drugs, medicaments and biological substances; Z98.890 Other specified postprocedural states
CPT/HCPCS: 82947; 92960; 93005; J2704

== ENCOUNTER → 2025-10-04 11:57 | Outpatient (BNV) | payer MEDICARE, OTHER, SELFPAY | PROVIDERS: PCP Internal Medicine; Visit Provider Internal Medicine Cardiovascular Disease | DX: I48.19 Other persistent atrial fibrillation (principal); I44.0 Atrioventricular block, first degree; R00.1 Bradycardia, unspecified | CPT/HCPCS: 92960; 93010 ==

== ENCOUNTER 2025-10-21 12:29 | Outpatient (AMB) | payer MEDICARE, OTHER, SELFPAY ==
[2025-10-21 13:02] VITALS: BP 120/68; PULSE 59; BMI 24.2
--- NOTE | 2025-10-21 13:02 | MHC.OFFVIS ---
Vital Signs 10/21/25 13:02 Height 5 ft 6 in Weight 149 lb 14.629 oz BMI 24.2 BP 120/68 Blood Pressure Location Lt brachial Position Sitting Pulse 59 Pulse Source Monitor Intake Visit Reasons: f/up- cardioversion 10/04 Allergies cephalexin Allergy (Intermediate, Verified 08/19/25 11:27) facial rash celecoxib (Celebrex) Allergy (Unknown, Verified 08/19/25 11:27) patient unsure what reaction was Medication List - Last Reconciled 10/21/25 by Stacy Singer NP-C amiodarone take 2 tablets twice a day for 10 days then 200 mg daily.; apixaban (Eliquis) 5 mg PO BID 30 days cholecalciferol (vitamin D3) 50 mcg PO DAILY furosemide 20 mg PO DAILY latanoprost 0.005% 1 drp ophthalmic (eye) BEDTIME metformin ER 500 mg PO DAILY simvastatin 20 mg PO BEDTIME HPI HPI f/up- cardioversion 10/04: Details: Izzy is a 79-year-old female with past medical history of hypertension, hyperlipidemia, diabetes who was admitted to [facility] 07/2025 with increased shortness of breath and treated for Congestive heart failure and new finding of AFib RVR. She was treated with heart rate control and diuresed with IV Lasix. She was discharged with metoprolol, Eliquis and Lasix. And on 08/24/2025 and converted back to atrial fibrillation. She was put on amiodarone load and then had repeat cardioversion 10/04/2025 with successful conversion to sinus rhythm, first-degree AV block. She now presents for follow-up. Today she reports that she is feeling much better overall. She is no longer having shortness of breath and she reports good activity tolerance. She is asking about decreasing her Lasix dose. She received word from the pharmacy that her next refill will be over 500 dollars. She is asking what the alternatives are. No PND, orthopnea or edema. No chest discomfort at rest or with activity. No heart palpitations, lightheadedness, presyncope, syncope, falls. No bleeding issues with Eliquis use. Taking meds as directed. [facility] Medical History History of cardioversion Implantable cardioverter-defibrillator (ICD) at end of battery life Refused influenza vaccine COVID-19 vaccine series completed Rotator cuff tear arthropathy of right shoulder Spondylolisthesis of lumbar region Osteopenia of left femoral neck Menopause Generalized anxiety disorder Essential hypertension Dyslipidemia Type 2 diabetes mellitus without complication, without long-term current use of insulin Surgical History Mass of left forearm Hx of varicose vein ligation History of repair of right rotator cuff History of colonoscopy Family History Father CVD (cardiovascular disease) Myocardial infarction Mother History of CVA (cerebrovascular accident) Stroke Brother HTN (hypertension) Hyperlipidemia Diabetes mellitus Brother No problems noted. Son No problems noted. Daughter No problems noted. Social History Household Members: Other Household Members Other:: granddaughter Housing: House Are you a primary career manager to a significant other at home: No Do you presently have visiting nurse or other home services: No Comment: Patient is Ind Patient Tobacco Use Status: Never used Tobacco e-Cigarette/Vaping Use: Never Used Second Hand Smoke Exposure: No service: No Current occupational status: retired Current occupation: [employer] Cognitive needs: No Hearing needs: No Vision needs: Yes Review of Systems Const All systems reviewed & are unremarkable except as noted in HPI and below Denies weakness ENT Denies dizziness Card Denies chest pain, Denies chest pain with activity, Denies syncope, Denies rapid heart rate, Denies pedal edema, Denies edema, Denies leg edema, Denies lightheadedness, Denies palpitations, Denies dyspnea, Denies dyspnea on exertion and Denies orthopnea Resp Denies cough, Denies dyspnea and Denies dyspnea on exertion GI Denies hematochezia and Denies change in stool character Musc Denies abnormal gait, Denies muscle cramps, Denies muscle weakness, Denies numbness, Denies radiating pain into limb and Denies tingling Neuro Denies abnormal gait, Denies dizziness, Denies syncope, Denies numbness, Denies tingling and Denies weakness Endo Denies palpitations Physical Exam Vital Signs: Last Vital Signs Pulse 59 10/21/25 13:02 BP 120/68 10/21/25 13:02 BMI result Body Mass Index 24.2 Const General: cooperative, healthy appearing, comfortable and no acute distress Orientation/consciousness: patient oriented x3 Neck Neck: Yes normal visual inspection Resp Effort & Inspection: normal respiratory effort Auscultation: clear to auscultation bilaterally, no rales, no rhonchi and no wheezes Cardio Rate: regular rate Rhythm: regular rhythm Heart sounds: S1 normal heart sound present, S2 normal heart sound present, no gallops, no murmurs and no rubs Neuro General: patient oriented x3 Extrem General: Yes normal to inspection, No no pedal edema and No calf tenderness Psych Appearance: grossly normal Mental Status: mental status grossly normal Speech and movement: Normal speech and movement present Office Procedures EKG Details: Today, read by me Sinus Bradycardia with 1st degree avb, rate 59, Qtc 477ms [id number], Complete Assessment & Plan Assessment & Plan (1) Congestive heart failure: Code(s): I50.9 - Heart failure, unspecified Category: Medical Plan: [facility] admission 07/2025 for increased shortness of breath, Congestive heart failure, new AFib. BNP elevated at 1563. Echocardiogram showed EF 55-60%, left atrium moderately dilated, right atrium likely dilated, mild pulmonary hypertension.. CTA of the chest did show small bilateral effusions and pulmonary edema. She was given IV Lasix and diuresed. Discharged with Lasix 40 mg daily. She has since undergone cardioversion and is being maintained with rhythm control using amiodarone. She is asymptomatic. Will reduce her Lasix down to 20 mg daily she was her prior dose before the hospital admission. Signs and symptoms of heart failure reviewed with her. (2) New onset a-fib: Code(s): I48.91 - Unspecified atrial fibrillation Category: Medical Plan: New finding of atrial fibrillation with RVR during recent hospital admission. She was treated with heart rate control and put on metoprolol XL 100 mg daily. Outpatient cardioversion initially unsuccessful. She was put on amiodarone load and repeat cardioversion was successful. EKG today showing sinus Francisco with first-degree AV block, rate 59. Shortness of breath resolved, activity tolerance improved. Continue amiodarone 200 mg daily. She is having issues with the cost of Eliquis. Will send Xarelto 20 mg daily to the pharmacy. If her co-pay is still high then recommend she call her insurance company. Discussed Coumadin as an inexpensive option. Cardiology follow-up 3-4 months, sooner if needed (3) Essential hypertension: Code(s): I10 - Essential (primary) hypertension Category: Medical Plan: Blood pressure goal less than 130/80. Reducing Lasix. Plan I confirmed with the patient that her EKG today shows a normal heart rhythm, which explains her clinical improvement. We had an extensive discussion regarding the high cost of her Eliquis prescription. I explained the available alternatives for anticoagulation, including Xarelto, which may be preferred by her insurance, and Coumadin, a less expensive option that requires diligent blood monitoring. I will send a prescription for Xarelto and advised her to contact her insurance if the cost remains high. We also discussed her diuretic medication, and since her rhythm is now controlled and she has no swelling, I advised her she can reduce the dose back to 20 mg. Finally, I explained the importance of follow-up blood work in a few weeks to monitor her liver, thyroid, and kidney function due to the new amiodarone medication, and I will place the necessary orders. Orders: Orders TSH reflex Free T4 Today I48.91 - Unspecified atrial fibrillation Comprehensive Met. Panel Today I48.91 - Unspecified atrial fibrillation Medications: New rivaroxaban (Xarelto) must administer with evening meal ( Eliquis copay too high - changing to Xarelto, she needs to call insurance if copay still to high) 20 mg PO DAILY 30 tabs 5RF Discontinued apixaban (Eliquis) Discontinued Reason: Change Referral Type 5 mg PO BID 30 days 60 tabs 3RF Patient Instructions: - A new prescription for a blood thinner called Xarelto has been sent to your pharmacy, [facility]. This may be cheaper for you than Eliquis. - If Xarelto is still too expensive, please call your insurance company and ask why your copay is so high for these types of blood thinners. - Let our office know if you have trouble affording your blood thinner, as an older medication called Coumadin is an option. It is inexpensive but requires frequent blood tests. - You can decrease your water pill (Lasix) dose from 40 mg to 20 mg once a day. - In the next few weeks (after the holidays), please go get blood work done to monitor your new heart medicine, amiodarone. You do not need an appointment for this. Patient was informed and verbally consented to the use of an ambient scribe for clinic note documentation during this visit. Visit time spent on chart review, interview, assessment, orders, documentation. Coding Level of Care Code Est Pt Level 4 (18601) Add On Problem Visit Only Diagnoses Congestive heart failure I50.9 New onset a-fib I48.91 Essential hypertension I10 CPT Codes EKG - CPT: 83901-[id number], Complete ([id number]) Time Spent (min) 28
== END 2025-10-21 13:29 | disposition home or self-care (01) ==
LOC: HO.HCS 12:30
PROVIDERS: PCP Internal Medicine; Visit Provider Nurse Practitioner Family
DX: I50.9 Heart failure, unspecified (principal); I48.91 Unspecified atrial fibrillation; I10 Essential (primary) hypertension
CPT/HCPCS: 93010; 99214; G2211

== ENCOUNTER → 2025-10-21 12:29 | Outpatient (BNVA) | payer MEDICARE, OTHER, SELFPAY | PROVIDERS: PCP Internal Medicine; Visit Provider Nurse Practitioner Family | DX: I10 Essential (primary) hypertension (principal); I48.91 Unspecified atrial fibrillation; I50.9 Heart failure, unspecified | CPT/HCPCS: 93005; 99212 ==

== ENCOUNTER 2025-10-27 08:45 | Outpatient (REF) | payer MEDICARE, OTHER, SELFPAY ==
--- OUTSIDE RECORDS SUMMARY | 2025-10-27 09:17 | XMS_ITS | Patient Health Record ---
Author Organization [facility] Address [address] [place] [address] Care Team Providers Care Bank Consultant Name Role Phone Virgilio VORA, Francia Primary Care Provider Blas Motta Unavailable [phone] Reason For Referral No Information Medications Medication SIG (Take, Route, Frequency, Duration) Notes Start Date End Date Status Aspir-81 81 MG Tablet Delayed Release 1 tablet Orally Once a day Active Simvastatin 20 MG Tablet 1 tablet in the evening Orally Once a day Active Metoprolol Succinate 100 one tablet oral ly ONCE A DAY in ap Active Social History Tobacco Use: Social History Observation Description Date Details (start date - stop date) Never Smoker NA - NA Social History Drugs/Alcohol: Social Info Question Answer Notes Alcohol Screen Did you have a drink containing alcohol in the past year? No Points 0 Interpretation Negative Tobacco Use: Social Info Question Answer Notes Tobacco Use/Smoking Patient is a nonsmoker Additional Details Category Social Info Options Details Miscellaneous: Marital status: Occupation: Retired Section Notes: Nonsmoker; no sig alcohol Problems Problem Type SNOMED Code ICD Code Onset Dates Problem Status W/U Status Risk Notes Problem Screening for malignant neoplasm of colon (550893375) Encounter for screening for malignant neoplasm of colon (Z12.11) Active confirmed Problem Long-term current use of aspirin ([id number] 03) Aspirin long-term use (Z79.82) Active confirmed Plan Of Treatment Future Test Test Name Order Date COLONOSCOPY 02/25/2018 Insurance Providers Payer Name Payer Address Payer Phone Subscriber Number Group Number Insured Name Patient Relationship to Insured Coverage Start Date Coverage End Date MEDICARE OF [employer] [address] [place] [address] [phone] [id number] LORRAINE RUSSELL Self - patient is the insured PGBA DO NOT USE DO NOT USE [facility] CLAIMS USE [facility] [address] [place] [address] [id number] LORRAINE RUSSELL Self - patient is the insured Medical (General) History Medical History History ICD Code Denies [place],DM,CVA,Lung disease,renal dise ase Hyperlipidemia HTN Describes a negative colonos copy approx 20 yrs ago at [facility] with Dr. Yost Surgical History Surgery Date(Month/Year) Leg veins Right rotator cuff
[2025-10-27 11:07] LABS: Alanine Aminotransferase 23 U/L (0-31); Albumin Level 4.2 g/dL (3.5-5.0); Alkaline Phosphatase 76 U/L (39-117); Anion Gap 13 (12-20); Aspartate Amino Transferase 31 U/L (5-31); Blood Urea Nitrogen 17 mg/dL (9-16); Calcium 9.7 mg/dL (8.4-10.2); Carbon Dioxide 27 mmol/L (22-29); Chloride 104 mmol/L (96-108); Estimated Glomerular Filt Rate 58; Potassium 4.2 mmol/L (3.3-5.1); Sodium 140 mmol/L (135-145); Total Protein 7.8 g/dL (6.5-8.0)
[2025-10-27 11:09] LABS: NT Pro B Type Natriuretic Pept 454.9 pg/mL (<300)
== END 2025-10-27 08:46 | disposition home or self-care (01) ==
LOC: HO.HMGCLDS 08:45
PROVIDERS: Nurse Practitioner Family; PCP Internal Medicine; Visit Provider Internal Medicine
DX: I48.91 Unspecified atrial fibrillation (principal); I50.9 Heart failure, unspecified
CPT/HCPCS: 36415; 80053; 83880; 84443

== ENCOUNTER 2025-11-03 08:57 | Outpatient (AMB) | payer MEDICARE, OTHER, SELFPAY ==
--- NOTE | 2025-11-03 09:01 | A.OFFPC_ITS ---
Intake Visit Reasons: SWV G0439 Allergies cephalexin Allergy (Intermediate, Verified 08/19/25 11:27) facial rash celecoxib (Celebrex) Allergy (Unknown, Verified 08/19/25 11:27) patient unsure what reaction was Tobacco use date assessed: 08/18/25 Dental Screening Dental Screen Date: 08/19/25 [facility] Medical History History of cardioversion Implantable cardioverter-defibrillator (ICD) at end of battery life Refused influenza vaccine COVID-19 vaccine series completed Rotator cuff tear arthropathy of right shoulder Spondylolisthesis of lumbar region Osteopenia of left femoral neck Menopause Generalized anxiety disorder Essential hypertension Dyslipidemia Type 2 diabetes mellitus without complication, without long-term current use of insulin Surgical History Mass of left forearm Hx of varicose vein ligation History of repair of right rotator cuff History of colonoscopy Family History Father CVD (cardiovascular disease) Myocardial infarction Mother History of CVA (cerebrovascular accident) Stroke Brother HTN (hypertension) Hyperlipidemia Diabetes mellitus Brother No problems noted. Son No problems noted. Daughter No problems noted. Social History Household Members: Other Household Members Other:: granddaughter Housing: House Are you a primary critical care clinical nurse specialist to a significant other at home: No Do you presently have visiting nurse or other home services: No Comment: Patient is Ind Patient Tobacco Use Status: Never used Tobacco e-Cigarette/Vaping Use: Never Used Second Hand Smoke Exposure: No service: No Current occupational status: retired Current occupation: [employer] Cognitive needs: No Hearing needs: No Vision needs: Yes Questionnaire Thrive Questionnaire Date Thrive assessed: 12/08/24 ADELITA-7 AMB Questionnaire ADELITA-7 Date ADELITA - 7 assessed: 12/08/24 Source: Developed by Drs. Blas Mahajan, Pat Pleitez, Wayne Fisher and colleagues, with an educational pepe from [employer]. Physical exam (Primary Care) Tobacco/Smoking Status: Tobacco use Status Tobacco use date assessed 08/18/25 08/19/25 11:22 Patient Tobacco Use Status Never used Tobacco 10/04/25 13:34 e-Cigarette/Vaping Use Never Used 08/19/25 11:16 Thrive Assessment: Date of Thrive Assessment Date Thrive assessed 12/08/24 08/19/25 11:16 Coding
[2025-11-03 09:02] VITALS: BP 124/62; PULSE 64; RESP 15; TEMP 36.6; O2SAT 96; BMI 24.5
--- OUTSIDE RECORDS SUMMARY | 2025-11-03 09:02 | XMS_ITS | Patient Health Record ---
Author Organization [facility] Address [address] [place] [address] Care Team Providers Care Outside Sales Account Manager Name Role Phone Virgilio VORA, Francia Primary Care Provider Blas Motta Unavailable [phone] Reason For Referral No Information Medications Medication [...] Problem Screening for malignant neoplasm of colon (443631711) Encounter for screening for malignant neoplasm of colon (Z12.11) Active confirmed Problem Long-term current use of aspirin ([id number] 03) Aspirin long-term use (Z79.82) Active confirmed Plan Of Treatment Future Test Test Name Order Date COLONOSCOPY 02/25/2018 Insurance Providers Payer Name Payer Address Payer Phone Subscriber Number Group Number Insured Name Patient Relationship to Insured Coverage Start Date Coverage End Date MEDICARE OF [employer] [address] [place] [address] [id number] LORRAINE RUSSELL Self - patient is the insured PGBA DO NOT USE DO NOT USE [facility] CLAIMS USE [facility] [address] [place] [address] [id number] LORRAINE RUSSELL Self - patient is the insured Medical (General) History Medical History History ICD Code Denies MT,DM,CVA,Lung disease,renal dise ase Hyperlipidemia HTN Describes a negative colonos copy approx 20 yrs ago at [facility] with Dr. Yost Surgical History Surgery Date(Month/Year) Leg veins Right rotator cuff
--- NOTE | 2025-11-03 09:03 | A.OFFVIS_ITS ---
Intake Vital Signs 11/03/25 09:02 Height 5 ft 6 in Weight 152 lb BMI 24.5 BP 124/62 Blood Pressure Location Lt brachial Position Sitting Respiration 15 Pulse 64 Pulse Source Pulse Oximeter Temp 97.9 F Temp Source Oral Pulse Oximetry (%) 96 Oxygen Delivery Method Room Air Intake Visit Reasons: SWV G0439 Intake Note: Pt is here today for her SWV: Last mammogram 01/27/25, bone density scan 05/07/25, colonoscopy 01/06/18 Recovery Operator Helper Required: No Allergies cephalexin Allergy (Intermediate, Verified 11/03/25 09:23) facial rash celecoxib (Celebrex) Allergy (Unknown, Verified 11/03/25 09:23) patient unsure what reaction was Medication List - Last Reconciled 11/03/25 by Francia Poole MD amiodarone take 2 tablets twice a day for 10 days then 200 mg daily.; cholecalciferol (vitamin D3) 50 mcg PO DAILY furosemide 20 mg PO DAILY latanoprost 0.005% 1 drp ophthalmic (eye) BEDTIME metformin ER 500 mg PO DAILY metoprolol tartrate 100 mg PO DAILY rivaroxaban (Xarelto) 20 mg PO DAILY simvastatin 20 mg PO BEDTIME HPI SWV G0439 HPI Details SWV ?79 year old lady with past medical history significant for dyslipidemia, type 2 diabetes mellitus without complication or without long-term use of insulin, hypertension, and arthritis, presents today for her ? Annual Wellness Visit, subsequent visit.? She is up-to-date with her screening mammogram done 01/27/2025 with benign findings. She stopped getting cervical cancer screenings. Last bone density scan was done 05/09/2025 with normal findings. She is up-to-date with her lipid screening, done 08/16/2025 with normal findings and fasting glucose was done 05/07/2025 which came back mildly elevated at 120 mg/dL She is up-to-date with her screening colonoscopy done by Dr. Mcdonald 01/06/2018, due for recheck in 2027. Up-to-date with her pneumococcal vaccination, but does not want to get the shingles vaccine the flu shot or the COVID booster ? Medical / Social History Reviewed? Past Medical History ?Yes . ? [place] of Care / Care Team list updated ?Yes . ? Surgical/Hospitalization History ?Yes . ? Current Medications (including OTC and supplements) ?Yes . ? Family History ?Yes . ? Tobacco Control form ?Yes . ? AUDIT-C (Alcohol use) form ?Yes . ? Illicit drug use in Social History ?Yes . ? Current diagnosis of depression? ?No ? Appropriate PHQ2/PHQ9 completed ?Yes . ? Data entered by ?Vascular Technician and reviewed by provider ? Fall Risk ? Fall History? Have you had any falls with injury in the past year? ?No . ? Have you had two or more falls in the past year? ?No . ? Fall Risk Assessment: ?No falls in the past year . ? HRA filled out by the patient, reviewed by Provider and scanned. ?SWV ? Balance? Romberg negative ? Tandem walk ?Yes . ? Walk and Turn ?Yes . ? Rise from sit to stand ?Yes . ?Vision? Corrective lens ?Yes ? Vision screen ? Up-to-date, she sees DR Lenz ?Hearing? Whisper test ?failed, does not want to get hearing test yet ?Written Plan?Completed. See Patient Documents.? Healthcare proxy in place [facility] Medical History (Updated 11/03/25 @ 09:42 by Francia Poole MD) History of cardioversion Implantable cardioverter-defibrillator (ICD) at end of battery life Refused influenza vaccine COVID-19 vaccine series completed Rotator cuff tear arthropathy of right shoulder Spondylolisthesis of lumbar region Osteopenia of left femoral neck Menopause Generalized anxiety disorder Essential hypertension Dyslipidemia Type 2 diabetes mellitus without complication, without long-term current use of insulin Surgical History Mass of left forearm Hx of varicose vein ligation History of repair of right rotator cuff History of colonoscopy Family History Father CVD (cardiovascular disease) Myocardial infarction Mother History of CVA (cerebrovascular accident) Stroke Brother HTN (hypertension) Hyperlipidemia Diabetes mellitus Brother No problems noted. Son No problems noted. Daughter No problems noted. Social History Household Members: Other Household Members Other:: granddaughter Housing: House Are you a primary client care manager to a significant other at home: No Do you presently have visiting nurse or other home services: No Comment: Patient is Ind Patient Tobacco Use Status: Never used Tobacco e-Cigarette/Vaping Use: Never Used Second Hand Smoke Exposure: No service: No Current occupational status: retired Current occupation: [employer] Cognitive needs: No Hearing needs: No Vision needs: Yes Questionnaire Medicare Wellness Checkup [age] What gender do you identify with?: female During the past 4 weeks, how much have you been bothered by emotional problems such as feeling anxious, depressed, irritable, sad or downhearted, and blue?: not at all During the past 4 weeks, has your physical & emotional health limited your social activities with family, friends, neighbors, or groups?: not at all During the past 4 weeks, how much bodily pain have you generally had?: very mild pain During the past 4 weeks, was someone available to help you if you needed & wanted help?: yes, as much as I wanted During the past 4 weeks, what was the hardest physical activity you could do for at least 2 minutes?: moderate Can you get to places out of walking distance without help? (For eg., can you travel alone on buses, taxis or drive your car?): Yes Can you go shopping for groceries or clothes without someone's help?: Yes Can you prepare your own meals?: Yes Can you do your housework without help?: Yes Because of any health problems, do you need the help of another person with your personal care needs such as eating, bathing, dressing or getting around the house?: No Can you handle your own money without help?: Yes During the past 4 weeks, how would you rate your health in general?: fair During the past 4 weeks how have things been going for you?: good & bad parts about equal Are you having difficulties driving your car?: no Do you always fasten your seat belt when you are in a car?: yes, usually During past 4 weeks, have you been bothered by the following: never: Sexual problems?, Trouble eating well?, Teeth or denture problems? and Problems using the telephone? and seldom: Falling or dizzy when standing up and Tiredness or fatigue? Have you fallen 2 or more times in the past year?: No Are you afraid of falling?: Yes Are you a smoker?: no During the past 4 weeks, how many drinks of wine, beer, or other alcoholic beverages did you have?: no alcohol at all Do you exercise for about 20 minutes 3 or more times a week?: no, I usually do not exercise this much Have you been given information to help with the following?: no: Hazards in your house that might hurt you? and no: Keeping track of your medications? How often do you have trouble taking medicines the way you have been told to take them?: I always take medicine as prescribed How confident are you that you can control & manage most of your health problems?: somewhat confident What is your race?: White Mini Mental State Exam (MMSE) Orientation What is the (year) (season) (date) (day) (month)?: year (2024), season (winter ), date (11/03/25), day (Saturday ) and month () Where are we (state) (county) (town or city) (hospital) (floor)?: state ([facility]), county ([place]), town or city ([place]) and hospital/clinic ([facility]) Score Score: 9 Activity of Daily Living Bathing - sponge bath, tub bath or shower: receives no assistance (gets in/out by self, if usual bathing means Dressing - getting clothes from closets & drawers, including inner/outer garments & fasteners.: gets clothes & gets completely dressed without help Toileting - going to the 'toilet room' for urine/bowel elimination & cleaning self/arranging clothes: goes to toilet room, cleans self, arranges clothes without help Transfer: moves in & out of bed and chair without help (may use support object) Continence: controls urination/bowel movements completely by self Feeding: feeds self without help Total Score: 0 Information obtained from: patient Using telephone: independent Traveling: independent Shopping: independent Preparing meals: independent Housework: independent Taking medicine: independent Managing money: independent PHQ-9 Over the last 2 weeks, how often have you been bothered by any of the following problems? 1. Little interest or pleasure in doing things: not at all 2. Feeling down, depressed, or hopeless: not at all 3. Trouble falling or staying asleep, or sleeping too much: several days 4. Feeling tired or having little energy: several days 5. Poor appetite or overeating: not at all 6. Feeling bad about yourself - or that you are a failure or have let yourself or your family down: not at all 7. Trouble concentrating on things, such as reading the newspaper or watching television: not at all 8. Moving or speaking so slowly that other people could have noticed. Or the opposite - being so fidgety or restless that you have been moving around a lot more than usual: not at all 9. Thoughts that you would be better off or of hurting yourself in some way: not at all Total score: 2 Depression Screening Interpretation: Negative Depression Screening Done: Yes 69390 - PHQ-9 Billing: Yes Source: Developed by Drs. Blas Mahajan, Pat Pleitez, Wayne Fisher and colleagues, with an educational pepe from [employer]. Physical Exam Vital Signs: Last Vital Signs Temp 97.9 F 11/03/25 09:02 Pulse 64 11/03/25 09:02 Resp 15 11/03/25 09:02 BP 124/62 11/03/25 09:02 Pulse Ox 96 11/03/25 09:02 Oxygen Delivery Method Room Air 11/03/25 09:02 BMI result Body Mass Index 24.5 Assessment & Plan Assessment & Plan (1) Encounter for subsequent annual wellness visit in Medicare patient: Code(s): Z00.00 - Encounter for general adult medical examination without abnormal findings Plan: Medical wellness checklist reviewed with patient, discussed and updated. Received her shingles vaccine but does not want to get any other vaccinations. Due for repeat colonoscopy with Dr. Mcdonald in 2027. But declined getting bone density scan and lower gets cervical cancer screenings done. Up-to-date with her screening mammogram, done earlier this. (2) Type 2 diabetes mellitus without complication, without long-term current use of insulin: Comment: taking metformin once/day-does not check glucose at home Code(s): E11.9 - Type 2 diabetes mellitus without complications Plan: Continue metformin ER 500 mg daily (3) Dyslipidemia: Code(s): E78.5 - Hyperlipidemia, unspecified Plan: Currently on simvastatin 20 mg at bedtime (4) Essential hypertension: Code(s): I10 - Essential (primary) hypertension Plan: Continued on metoprolol tartrate 100 mg daily and furosemide 20 mg daily (5) Atrial fibrillation: Code(s): I48.91 - Unspecified atrial fibrillation Plan: Currently on amiodarone and rivaroxaban, followed by cardiology Orders: Orders Microalbumin, Random (w Creat) 11/13/25 E11.9 - Type 2 diabetes mellitus without complications Quality Reporting (2019) Depression/Bipolar (159/160/161/177) PHQ-9: Total score: 2 Coding Level of Care Code Medicare Subsequent (G0439) Diagnoses Encounter for subsequent annual wellness visit in Medicare patient Z00.00 Type 2 diabetes mellitus without complication, without long-term current use of insulin E11.9 Dyslipidemia E78.5 Essential hypertension I10 Atrial fibrillation I48.91 CPT Codes Advance Care Planning - Advance Care Planning discussion: On file, no changes ([id number]) Advance Care Planning - Time spent: 1-15 minutes, on File ([id number]) Additional Codes PHQ-9 - 17799 - PHQ-9 Billing: Yes ([id number]) Advance Care Planning Advance Care Planning discussion: On file, no changes Date of discussion: 11/03/25 Who was present: Patient Forms completed: Health Care Proxy Time spent: 1-15 minutes, on File Actual minutes spent: 1
== END 2025-11-03 10:33 | disposition home or self-care (01) ==
LOC: HO.HMCC 08:57
PROVIDERS: PCP Internal Medicine; Visit Provider Internal Medicine
DX: Z00.00 Encounter for general adult medical examination without abnormal findings (principal); E11.9 Type 2 diabetes mellitus without complications; E78.5 Hyperlipidemia, unspecified; I10 Essential (primary) hypertension; I48.91 Unspecified atrial fibrillation

== ENCOUNTER → 2025-11-03 08:57 | Outpatient (BNVA) | payer MEDICARE, OTHER, SELFPAY | PROVIDERS: PCP Internal Medicine; Visit Provider Internal Medicine | DX: Z13.31 Encounter for screening for depression (principal) | CPT/HCPCS: 96127 ==